=== PATIENT | male | born 1970 | race Hispanic/Latino ===

== ENCOUNTER 2016-11-02 22:52 | Inpatient (IN) | payer OTHER ==
[~2016-11-02] VITALS: Ht 177.8 cm; Wt 89.8 kg
[~2016-11-02 22:52] MED LIST: AMOXIL500 MG PO; AUGMENTIN 875875 MG PO; BACTRIM DS 8001 TAB PO; BENADRYL 50 MG50 MG PO; BENADRYL ALLERG25 MG PO; CIPRO 500MG TA500 MG PO; CIPRO500 M1 PO; COZAAR 50MG TAB50 MG PO; CYCLOBENZAPRINE10 M1 PO; CYCLOBENZAPRINE10 M2 PO; DILAUDID2 MG PO; DOXYCYCLINE HY100 M2 PO; GABAPENTIN300 MG PO; IBU-6600 MG PO; IBUPROFEN800 M1 PO; K-DUR 20MEQ TA20 MEQ PO; KETOROLAC TROME10 M1 PO; LANTUS SOLOS100 U/ML SC; LOSARTAN POTAS100 MG PO; LOSARTAN POTASS25 MG PO; MOTRIN 400 MG400 MG PO; NAPROSYN 500 M500 MG PO; NEURONTIN300 MG PO; NITROFURANTOIN100 MG PO; NORCO 325 MG-51 TAB PO; NORFLEX100 MG PO; NOVOLOG 10300 UNITS/; NOVOLOG100 U/ML SC; OXYCODONE HCL15 MG PO; OXYCODONE HCL30 MG PO; OXYCODONE5 MG PO; OXYCONTIN40 MG PO; PANTOPRAZOLE SO40 M1 PO; PEPCID20 MG PO; PERCOCET 325 MG1 TA2 PO; PERCOCET 325 MG1 TAB PO; PERCOCET 5-3251 EACH PO; PREDNICOT20 MG PO; PREDNISONE 20MG20 MG PO; ROXICODONE30 MG PO; SANTYL250 U/GM TOP; SILVADENE CREAM50 GM TOP; TRADJENTA5 M1 PO; TRADJENTA5 MG PO; TRAMADOL HCL50 M1 PO; VALIUM5 M1 PO; VISTARIL50 MG PO; ZOFRAN ODT4 MG PO
--- NOTE | 2016-11-02 23:00 | NUR ---
PRESENTS TO ED FOR EVALUATION OF SWOLLEN AND REDDENED RIGHT LOWER LEG. HE ALSO COMPLAINTS OF LOWER BACK PAIN, SUFFERED A FALL FROM HIS W/C APPROXIMATELY ONE MONTH AGO.
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
--- NOTE | 2016-11-02 23:04 | NUR ---
APPRECIATE TRIAGE NOTE. PT TO ROOM 1. KAMLESH WESTON TO BEDSIDE FOR EVAL.
--- NOTE | 2016-11-02 23:17 | NUR ---
PORTABLE XRAY AT BEDSIDE.
--- NOTE | 2016-11-02 23:42 | RADIOLOGY REPORT ---
EXAMINATION: XR TOE, RIGHT CLINICAL INFORMATION: Wounds distal first toe. Redness. Diabetic. COMPARISON: None. TECHNIQUE: 2 views FINDINGS: There is no air in the soft tissues of the forefoot. There is bone destruction of the distal phalanx of the great toe with destruction of the tuft and distal phalanges shaft. Findings consistent with osteomyelitis of the great toe distal phalanx. There is joint narrowing of the IP joint of the great toe. IMPRESSION: Bone destruction consistent with osteomyelitis of the distal tuft of distal phalanx of great toe.
--- NOTE | 2016-11-02 23:43 | RADIOLOGY REPORT ---
EXAMINATION: XR CALCANEUS, RIGHT CLINICAL INFORMATION: Wounds to the heel COMPARISON: None TECHNIQUE: Lateral and axial views of the right calcaneus were obtained. FINDINGS: No bone destruction. No evidence for osteomyelitis of the calcaneus. Small coarse calcification posterior to the calcaneus and soft tissues is chronic. IMPRESSION: No evidence for osteomyelitis of the calcaneus.
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
--- NOTE | 2016-11-03 00:45 | NUR ---
HOUSE STAFF AT BEDSIDE
--- NOTE | 2016-11-03 00:46 | NUR ---
PT C/O 05/21 PAIN. PT MEDICATED WITH HYDROMORPHONE PER ORDER
[2016-11-03] MEDS ORDERED: ESCITALOPRAM OX10 MG PO (01:01)
[2016-11-03] MEDS ORDERED: METOPROLOL TAR100 M1 PO (01:02)
--- NOTE | 2016-11-03 01:14 | NUR ---
PER MD, NO ULCER NOTED TO PATIENT'S BACKSIDE, NOTED W/ EXERTNAL HEMORRHOID APPROX 2 INCHES.
[2016-11-03] MEDS ORDERED: LANTUS SOL100 UNIT/1 SC ×2 (01:16→01:18)
[2016-11-03 02:00] LABS: ABSOLUTE BASOPHIL COUNT 0 /CUMM (0.0-0.2); ABSOLUTE EOSINOPHIL COUNT 0.2 /CUMM (0.0-0.7); ABSOLUTE GRANULOCYTE CT 7.4 /CUMM (1.4-6.5); ABSOLUTE LYMPH COUNT 1.3 /CUMM (1.2-3.4); ABSOLUTE MONOCYTE COUNT 0.6 /CUMM (0.10-0.60); BASOPHIL % 0.3 % (0.0-2.0); EOSINOPHIL % 1.8 % (0-5); GRANULOCYTE % 78.4 % (42.2-75.2); HEMATOCRIT 38.8 % (42-52); MEAN CORPUSCULAR HGB 28.7 PG (27.0-31.0); MEAN CORPUSCULAR HGB CONC 33.2 G/DL (33.0-37.0); MEAN CORPUSCULAR VOLUME 86.4 FL (80.0-94.0); PLATELET COUNT 194 /CUMM (130-400); RBC DISTRIBUTION WIDTH 14.6 % (11.5-14.5); RED BLOOD CELL CT 4.49 /CUMM (4.70-6.10); WHITE BLOOD CELL COUNT 9.4 /CUMM (4.8-10.8)
--- NOTE | 2016-11-03 02:07 | NUR ---
BLOODWORK AND 1ST SET BLOOD CULTURES DRAWN, SPECIMENS SENT OFF TO THE LAB.
--- NOTE | 2016-11-03 02:22 | NUR ---
EKG DONE AND SHOWN TO DR. GEORGE.
--- NOTE | 2016-11-03 02:24 | NUR ---
PT REPORTS PAIN DECREASING. PT APPEARS COMFORTBALE.
--- NOTE | 2016-11-03 02:40 | NUR ---
2ND SET OF BLOOD CULTURES DRAWN AND SENT OFF TO THE LAB.
--- NOTE | 2016-11-03 02:50 | NUR ---
PT C/O 05/21 PAIN. PT MEDICATED WITH 2MG MORPHINE PER ORDER
--- NOTE | 2016-11-03 03:12 | NUR ---
PT ASSIGNED TO ROOM [id number]
--- NOTE | 2016-11-03 03:23 | NUR ---
FINGERSTICK GLUCOSE LEVEL READING [id number]
--- NOTE | 2016-11-03 03:35 | NUR ---
PT REPORTS PAIN DECREAISNG AFTER BEING MEDICATED. PT APPEARS COMFORTABLE. RESP UNLABORED. NO APPARENT DISTRESS
--- NOTE | 2016-11-03 03:47 | NUR ---
PT TO CT
--- NOTE | 2016-11-03 04:18 | RADIOLOGY REPORT ---
EXAMINATION: 2 views of the right tibia/fibula CLINICAL INFORMATION: Swelling and redness and pain. COMPARISON: Tibia-fibula radiographs from 12/30/2015. FINDINGS: There is diffuse soft tissue swelling. No soft tissue gas. No radiopaque foreign bodies. No fractures. Bony articulations are normal. IMPRESSION: Diffuse soft tissue swelling. No acute osseous findings.
--- NOTE | 2016-11-03 04:23 | CT SCAN REPORT ---
EXAMINATION: CT LUMBAR SPINE WITHOUT CONTRAST CLINICAL INFORMATION: Lumbar pain. COMPARISON: Thoracic spine radiographs 04/27/2016. TECHNIQUE: Helical non-contrast CT images were obtained through the lumbar spine and 1.25 and 2.5 mm axial reconstructions were reviewed along with sagittal and coronal MPRs. FINDINGS: There are 5 nonrib-bearing lumbar-type vertebral bodies. Assessment of lumbar alignment is limited secondary to pelvic tilt. Vertebral body heights are maintained. There are large partially bridging anterior endplate osteophytes at the L3-S1 levels. No acute fractures and no acute subluxations. Vertebral body heights overall maintained. Disc volumes are preserved. No osteolytic and no osteoblastic lesions. Nonspecific enlarged retroperitoneal lymph nodes. Partially imaged large amount of intracolonic stool. Assessment for focal disc herniations is limited on CT with no definite high-grade central canal nor foraminal stenosis appreciated. IMPRESSION: - No acute osseous abnormalities. - Large partially bridging endplate osteophytes spanning the L3-S1 levels. - Nonspecific enlarged retroperitoneal lymph nodes.
[2016-11-03 04:27] VITALS: BP 162/70
--- NOTE | 2016-11-03 04:55 | Admission Certification ---
Admission Certification Certification Statement - As attending physician, I certify that at the time of - admission, based on clinical presentation, severity of - symptoms, need for further diagnostic testing and - therapeutic interventions, and risk of adverse outcomes - without in-hospital treatment, in my clinical assessment, - this patient requires an acute hospital stay for a minimum - of two nights or longer. I have also considered psychsocial - factors such as support system, advanced age, financial - issues, cognitive issues, and failed out-patient treatments, - past re-admission history, safety of patient, and lack of - compliance as applicable. Specific rationale supporting this admission is: Osteomyelitis of right great toe with right lower extremity cellulitis
--- NOTE | 2016-11-03 05:23 | NUR ---
PT ADMITTED TO FLOOR VIA STRETCHER FROM ER. ORIENTED TO ROOM, CALL HERNANDEZ, AND STAFF. ALERT AND OREINTED X 3, RA. CP FOR MRSA. SPT. MULTIPLE WOUNDS TO BLE. SEE WOUND MAN ASSESSMENT. NO C/O PAIN.
[2016-11-03 06:55] VITALS: BP 162/70
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
[2016-11-03 13:50] VITALS: BP 138/90
--- NOTE | 2016-11-03 15:33 | PN- Att Addend ---
Attending Addendum Attending Brief Note Patient seen and examined. Sitting comfortably in his wheelchair in acute distress. Denies nausea vomiting. Denies leg pain. Complains of bilateral flank pain is worse since his fall. Vital Signs Date Time Temp Pulse Resp B/P Pulse O2 O2 Flow FiO2 Ox Delivery Rate 11/03 1350 98.4 76 20 138/90 98 Room Air 11/03 1016 172/102 11/03 1016 172/102 11/03 0655 97.8 87 20 162/70 95 Room Air 11/03 0427 97.8 87 20 162/70 95 Room Air 11/03 0335 97.6 88 18 168/88 98 11/03 0100 98.3 96 18 159/89 96 11/02 2300 98.4 104 18 173/107 99 Room Air Gen. appearance: Well-developed, not in acute distress Heart: S1-S2 regular Lungs: Clear bilaterally Abdomen: Soft, nontender with normal bowel sounds, bilateral flank tenderness Extremities: Bilateral lower extremity edema. Erythema right lower extremity extending from the ankle to the upper one third of the leg. Right toe is edematous with an ulcer on the plantar surface with mild discharge. Tender to touch. Left small to has a ulceration. There is a tight dressing over right ankle ulceration. Distal pulses are weakly palpable. Recommendations: -Patient is scheduled to go to water with Carlos Deluna DPM tomorrow. Keep nothing by mouth past midnight. -Hold off antibiotics pending culture results. -Continue insulin regimen per recommendations of endocrinology service. -Recommend right lower extremity arterial studies and vascular surgery consultation due to his high risk for vasculopathy. -Obtain CT abdomen for further evaluation of his back pain. Pain appears to be musculoskeletal however imaging in the past did reveal abdominal adenopathy. Continue current pain regimen. Patient has been encouraged to take the prescribed muscle relaxants.
--- NOTE | 2016-11-03 15:40 | CT SCAN REPORT ---
EXAMINATION: CT ABDOMEN AND PELVIS WITH CONTRAST CLINICAL INFORMATION: Fever, abnormal urinary analysis and retroperitoneal lymph nodes. Evaluate for pyelonephritis. COMPARISON: Prior studies including a recent lumbar spine CT dated 11/03/[address] abdomen and pelvis dated 12/01/2013. TECHNIQUE: Multidetector volumetric imaging was performed of the abdomen and pelvis before and after the IV administration of 95mL of Optiray 320 intravenous contrast. Sagittal and coronal reformatted images were obtained on the technologist's workstation. DLP: 572.09 mGy-cm FINDINGS: LUNG BASES: Atelectasis or scarring is present at the lung base along with a calcified granuloma. LIVER, GALLBLADDER, AND BILIARY TREE: The liver is normal in size and shape. There is fatty infiltration of the liver. This is noted on the noncontrast recent lumbar spine CT. No focal hepatic lesion or biliary ductal dilatation is present. The gallbladder is contracted with no evidence of radiopaque gallstones, gallbladder wall thickening, or obvious pericholecystic inflammatory changes. PANCREAS: Unremarkable. SPLEEN: Unremarkable. ADRENAL GLANDS: Unremarkable. KIDNEYS AND URETERS: The kidneys are normal in size, shape, and attenuation. No hydronephrosis, hydroureter, or calculi are seen. No perinephric stranding. No solid masses are seen. There is a 2.2 cm left renal cyst present and a tiny millimeter-sized right cortical cyst present. BLADDER: Unremarkable. GASTROINTESTINAL TRACT: The small and large bowel is unremarkable. The appendix is unremarkable. ABDOMINAL WALL: No significant hernia is appreciated. LYMPH NODES: There is 1 enlarged lymph node in the retrocaval region that measures 2.64 x 2.43 x 1.40 cm. There is another enlarged right iliac chain lymph node present measuring 3.34 x 1.71 x 3.62 cm. Some smaller left and right iliac chain lymph nodes are seen. Enlarged right groin lymph nodes are present, the largest of which measures 2.93 x 2.17 x 4.16 cm. The retroperitoneal nodes are slightly larger than they were on the 12/01/2013 study. The groin nodes may have been slightly larger previously. VASCULAR: Unremarkable. PELVIC VISCERA: A suprapubic cystostomy tube is present. The bladder is contracted and cannot really be evaluated. OSSEOUS STRUCTURES: Degenerative changes are present in the spine with metallic structures present in the spine at T11. There is absence of the femoral heads present with destruction and ectopic bone formation with associated dysplasia of the acetabulum. Similar changes have been present in the past dating back into at least 2013. IMPRESSION: 1. Retroperitoneal and inguinal lymphadenopathy as described above. There has probably been no significant change since 2013 although there are slight differences. 2. Previously demonstrated destructive change is present in both hips. 3. No evidence of pyelonephritis. 4. Suprapubic cystostomy tube present.
[2016-11-03 22:26] VITALS: BP 164/102
--- NOTE | 2016-11-03 22:56 | NUR ---
PER DR PALMER, START D5 1/2NS AT 0000 WHEN NPO STARTS.
[2016-11-04 06:36] VITALS: BP 136/80
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
--- NOTE | 2016-11-04 07:44 | ULTRASOUND REPORT ---
EXAMINATION: NONINVASIVE ASSESSMENT OF THE ARTERIES OF RIGHT LOWER EXTREMITIES INTERPRETING VASCULAR \T\ INTERVENTIONAL RADIOLOGIST: Deniz Laurent MD CLINICAL INFORMATION: Lesion with chronic leg osteomyelitis TECHNIQUE: Right lower extremity duplex ultrasound was performed with velocity measurements and waveform analysis in the common femoral arteries, profunda femoris arteries, proximal mid and distal superficial femoral arteries, popliteal arteries and tibial vessels. This study was performed only at rest. COMPARISON: CT 11/03/2016 FINDINGS: velocities in cm/sec and phasicity as well as the presence of plaque are reported below RIGHT LEG: common femoral: 169, triphasic profunda femoris: 72.6, biphasic proximal SFA: 161, monophasic mid SFA: 186, monophasic distal SFA: 159, monophasic popliteal: 224, monophasic Posterior tibial: 39.3, monophasic Anterior tibial: 125, monophasic Dorsalis pedis: Nondetectable Incidental note is made of a large right groin nodes with largest of which is 2.7 x 1.7 x 4.3 cm. IMPRESSION: There is no evidence of inflow disease. There is some acceleration in the popliteal artery which could indicate some degree of stenosis. Velocities in the posterior tibial artery are decreased indicating some disease at this level.
--- NOTE | 2016-11-04 07:51 | PN- Student ---
Subjective Subjective: Vital Signs Date Time Temp Pulse Resp B/P Pulse O2 O2 Flow FiO2 Ox Delivery Rate 11/04 0636 98.3 75 20 136/80 96 Room Air 11/03 2226 98.1 83 20 164/102 97 Room Air 11/03 2149 155/80 11/03 1350 98.4 76 20 138/90 98 Room Air 11/03 1016 172/102 11/03 1016 172/102 Intake & Output 11/04 0800 11/04 0000 11/03 1600 Intake Total 650 600 Output Total 661 387 8213 Balance -650 -100 -600 Intake, Oral 650 600 Number 1 Bowel Movements Output, Urine [phone]
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
--- NOTE | 2016-11-04 13:41 | Operative Report ---
Operative/Inv Procedure Report Surgery Date: 11/04/16 Name of Procedure: 1 open incision and drainage deep to the deep fascia with exposure of the flexor and extensor tendon and tendon sheath multiple sites right foot 2 closure necrotic wound right foot 3 distal hallux amputation right foot 4 excisional debridement Pre-Operative Diagnosis: 1 open necrotic wound right foot 2 osteomyelitis right foot Post-Operative Diagnosis: The same Estimated Blood Loss: less than 50ml Surgeon/Plant Sprayer: BREONNA SMART DPM Anesthesia: moderate sedation, block Operative/Procedure Note Note: After obtaining informed consent the patient was brought to the operating room and placed on the operating table in the supine position. The patient was then securely fastened to the operating table utilizing safety belt. After administration of IV sedation, 10 mL of 0.5% Marcaine plain was infiltrated about the patient's right ankle. Right foot and ankle and screw prepped and draped in usual aseptic manner. Digitorectal right foot were large necrotic was identified and distal hallux. A 15 blade visualized sharply revised skin margins. Dissection was then carried down deep to the fashion with exposure of the extensor and flexor tendon tension multiple sites right foot. All necrotic nonviable infected tissue sharply evacuated from the wound bed. He fishmouth- type incision encompassing the distal phalanx level the interphalangeal joint was then marked out a skin marker. Full-thickness flaps were developed dorsally and plantarly. The digit was disarticulated and specimen sent for microbiologic and pathologic inspection. Nipple was then irrigated with 3 L normal sterile saline fissure 50,000 units of bacitracin. Following this foot was redraped and the surgeon's top of gestation clean gloves. Any bleeding vessels identified were cauterized a lace encountered. The dorsal plantar flaps were then mobilized and advanced was central aspect of the wound deep side flap was held in place with 3-0 Vicryl and the skin edges reapproximated 3-0 nylon. Incision was dressed with Xeroform 4 x 4's Kerlix and an Cosme wrap. The patient was noted tolerate both procedure and anesthesia well and the patient was transported from the operating room to recovery by sent stable best assess intact to both the dorsal and plantar flaps.
[2016-11-04 22:21] VITALS: BP 162/86
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
[2016-11-05 06:44] VITALS: BP 158/86
[2016-11-05 07:54] LABS: ABSOLUTE BASOPHIL COUNT 0 /CUMM (0.0-0.2); ABSOLUTE EOSINOPHIL COUNT 0.2 /CUMM (0.0-0.7); ABSOLUTE GRANULOCYTE CT 3.3 /CUMM (1.4-6.5); ABSOLUTE LYMPH COUNT 1.8 /CUMM (1.2-3.4); ABSOLUTE MONOCYTE COUNT 0.6 /CUMM (0.10-0.60); BASOPHIL % 0.4 % (0.0-2.0); EOSINOPHIL % 2.9 % (0-5); GRANULOCYTE % 56.6 % (42.2-75.2); HEMATOCRIT 36.5 % (42-52); MEAN CORPUSCULAR HGB 28.8 PG (27.0-31.0); MEAN CORPUSCULAR HGB CONC 33.5 G/DL (33.0-37.0); MEAN PLATELET VOLUME 9.1 FL (7.4-10.4); PLATELET COUNT 204 /CUMM (130-400); RBC DISTRIBUTION WIDTH 14.5 % (11.5-14.5); RED BLOOD CELL CT 4.25 /CUMM (4.70-6.10); WHITE BLOOD CELL COUNT 5.9 /CUMM (4.8-10.8)
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
[2016-11-05] MEDS ORDERED: LANTUS SOL100 UNIT/1 SC (10:39)
[2016-11-05] MEDS ORDERED: NOVOLOG100 UNIT/2 SC (10:39)
[2016-11-05] MEDS ORDERED: OXYCODONE HCL5 M1 PO (10:39)
--- NOTE | 2016-11-05 10:47 | Patient Discharge Instructions ---
Discharge Instructions General Discharge Information You were seen/treated for: Osteomyelitis Cellulitis Special Instructions: Please follow up with your PCP within 1 week of discharge. Please follow up with Dr. Deluna within 1-2 weeks of discharge. This is the phone number to schedule an appt. Please take all medications as directed. Please follow up with Dr. Bonilla within 1-2 weeks for management of diabtes mellitus. ( call this number to schedule an appt). Please return or visit your PCP if you notive fever, chills, or other signs of infection. Please attend your chronic pain appointment. Please follow up with vascular surgery. Schedule an appt with the number below. . You may take over the counter lozenges for throat pain. Diet Recommended Diet: Diabetic Activity Activity Self Limited: Yes Acute Coronary Syndrome Inclusion Criteria At DC or during hospital stay patient has or had the following: ACS DIAGNOSIS No Discharge Core Measures Meds if any: Prescribed or Continued at Discharge Meds if any: NOT Prescribed or Continued at Discharge Congestive Heart Failure Inclusion Criteria At DC or during hospital stay patient has or had the following: CHF DIAGNOSIS No Discharge Core Measures Meds if any: Prescribed or Continued at Discharge Meds if any: NOT Prescribed or Continued at Discharge Cerebrovascular accident Inclusion Criteria At DC or during hospital stay patient has or had the following: CVA/TIA Diagnosis No Discharge Core Measures Meds if any: Prescribed or Continued at Discharge Meds if any: NOT Prescribed or Continued at Discharge Venous thromboembolism Inclusion Criteria VTE Diagnosis No VTE Type NONE VTE Confirmed by (Test) NONE Discharge Core Measures - Per Current guidelines, there needs to be overlap - treatment for the first 5 days of Warfarin therapy. - If discharged on Warfarin prior to 5 days of - overlap therapy, the patient will need to be - assessed for post discharge needs including - *Post discharge parental anticoagulation - *Warfarin and/or parental anticoagulation education - *Follow up date to check INR post discharge At least 5 days overlap therapy as Inpatient No Meds if any: Prescribed or Continued at Discharge Note: Overlap Therapy is Warfarin and Anticoagulant Meds if any: NOT Prescribed or Continued at Discharge
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
[2016-11-05 15:23] VITALS: BP 120/70
[2016-11-05] MEDS ORDERED: OXYCODONE HCL10 M2 PO (16:31)
[2016-11-05] MEDS ORDERED: MIRALAX119 GM PO (16:31)
[2016-11-05 22:57] VITALS: BP 160/82
[2016-11-06 06:46] VITALS: BP 140/70
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
[2016-11-06 07:46] LABS: ABSOLUTE BASOPHIL COUNT 0 /CUMM (0.0-0.2); ABSOLUTE EOSINOPHIL COUNT 0.2 /CUMM (0.0-0.7); ABSOLUTE GRANULOCYTE CT 3.3 /CUMM (1.4-6.5); ABSOLUTE LYMPH COUNT 1.9 /CUMM (1.2-3.4); ABSOLUTE MONOCYTE COUNT 0.6 /CUMM (0.10-0.60); BASOPHIL % 0.3 % (0.0-2.0); EOSINOPHIL % 2.9 % (0-5); GRANULOCYTE % 55.1 % (42.2-75.2); HEMATOCRIT 35.6 % (42-52); MEAN CORPUSCULAR HGB 28.9 PG (27.0-31.0); MEAN CORPUSCULAR HGB CONC 33.7 G/DL (33.0-37.0); MEAN CORPUSCULAR VOLUME 85.8 FL (80.0-94.0); MEAN PLATELET VOLUME 8.6 FL (7.4-10.4); PLATELET COUNT 212 /CUMM (130-400); RBC DISTRIBUTION WIDTH 14.2 % (11.5-14.5); RED BLOOD CELL CT 4.15 /CUMM (4.70-6.10)
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
[2016-11-06] MEDS ORDERED: LEVEMIR100 UNIT/1 SC (09:05)
[2016-11-06] MEDS ORDERED: NOVOLOG100 UNIT/2 SC (09:06)
[2016-11-06 10:14] VITALS: BP 150/86
== END 2016-11-06 12:30 | disposition home health service (06) | DRG 305 ==
LOC: ENRESERVDT → ENRESERVTM → ERH 22:52 → 2NA 11-03 01:25 → ENPENDDIS 11-03 01:25 → ERHI 11-03 01:25 → ERH 11-03 03:42 → ERHI 11-03 03:42 → 2NA 11-03 04:12
PROVIDERS: Physician Assistant Medical; Student in an Organized Health Care Education/Training Program; ADMIT Internal Medicine
PROC: 0J9Q00Z Drainage of Right Foot Subcutaneous Tissue and Fascia with Drainage Device, Open Approach (ICD-10-PCS; principal; 2016-11-04)
PROC: 0YQ Anatomical Regions, Lower Extremities, Repair (ICD-10-PCS; 2016-11-04)
PROC: 0Y6M0Z9 Detachment at Right Foot, Partial 1st Ray, Open Approach (ICD-10-PCS; 2016-11-04)
PROC: 0JBQ0ZZ Excision of Right Foot Subcutaneous Tissue and Fascia, Open Approach (ICD-10-PCS; 2016-11-04)
DX: E11.69 Type 2 diabetes mellitus with other specified complication (principal); M86.171 Other acute osteomyelitis, right ankle and foot; Z79.4 Long term (current) use of insulin; L03.115 Cellulitis of right lower limb; E11.621 Type 2 diabetes mellitus with foot ulcer; L97.419 Non-pressure chronic ulcer of right heel and midfoot with unspecified severity; L97.519 Non-pressure chronic ulcer of other part of right foot with unspecified severity; E11.65 Type 2 diabetes mellitus with hyperglycemia; G82.20 Paraplegia, unspecified; N31.9 Neuromuscular dysfunction of bladder, unspecified; N30.80 Other cystitis without hematuria; B95.62 Methicillin resistant Staphylococcus aureus infection as the cause of diseases classified elsewhere; T83.518A Infection and inflammatory reaction due to other urinary catheter, initial encounter; I10 Essential (primary) hypertension
CPT/HCPCS: 2NAP; 87070; 87075; 87184; 36415; 73590-RT; 73650-RT; 73660-RT; 74177; 81001; 82436; 87040; 87086; 87088; 88305; 93005; 93010; 96374; J1644; J1815; J2001; J2405; J3490; J7042; Q2036

== ENCOUNTER 2016-12-15 13:26 | Emergency (ER) | payer OTHER ==
[~2016-12-15 13:26] MED LIST changes: +ESCITALOPRAM OX10 MG PO; +LANTUS SOL100 UNIT/1 SC; +LEVEMIR100 UNIT/1 SC; +METOPROLOL TAR100 M1 PO; +MIRALAX119 GM PO; +NOVOLOG100 UNIT/2 SC; +OXYCODONE HCL10 M2 PO; +OXYCODONE HCL5 M1 PO
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
--- NOTE | 2016-12-15 14:27 | RADIOLOGY REPORT ---
EXAMINATION: XR FOOT, LEFT CLINICAL INFORMATION: Dogbite to the left foot. COMPARISON: Single AP view of the left foot 07/04/2009. TECHNIQUE: AP, lateral, and oblique views of the left foot. FINDINGS: Multiple views of the left foot demonstrate demineralization of the visualized bones. No acute fracture or dislocation of the left foot is identified. There is no appreciable cortical destruction or significant periosteal reaction. No radiopaque foreign bodies are identified. There is minimal soft tissue swelling along the dorsum of the left foot. IMPRESSION: No acute osseous or articular abnormality of the left foot. Minimal soft tissue swelling along the dorsal aspect of the left foot. No visible radiopaque foreign bodies.
[2016-12-15] MEDS ORDERED: AUGMENTIN 875-1 EACH PO (14:33)
[2016-12-15] MEDS ORDERED: PERCOCET 5-3251 EACH PO (14:33)
[2016-12-15 16:47] VITALS: BP 156/79
== END 2016-12-15 16:49 ==
LOC: ERH 13:26
DX: S91.352A Open bite, left foot, initial encounter (principal); W54.0XXA Bitten by dog, initial encounter
CPT/HCPCS: 73630-LT; 90376; 90471; 90714; J3490

== ENCOUNTER 2016-12-18 16:56 | Emergency (ER) | payer OTHER ==
[~2016-12-18 16:56] MED LIST changes: +AUGMENTIN 875-1 EACH PO
[2016-12-18 17:38] VITALS: BP 172/90
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
== END 2016-12-18 18:33 ==
LOC: ERH 16:56
DX: Z23 Encounter for immunization (principal)
CPT/HCPCS: 90471; 99281

== ENCOUNTER 2016-12-25 17:48 | Emergency (ER) | payer OTHER ==
[2016-12-25 17:59] VITALS: BP 191/98
--- NOTE | 2016-12-25 21:06 | RADIOLOGY REPORT ---
EXAMINATION: XR CHEST CLINICAL INFORMATION: Rule out pneumonia. Pain. COMPARISON: Chest x-ray dated 12/30/2015. TECHNIQUE: 2 views of the chest were obtained. FINDINGS: No airspace consolidation is visible. The cardiomediastinal silhouette is normal. No pleural effusions are seen. High density material is again noted at the T11 level in the vertebral column. No acute osseous abnormality is seen. IMPRESSION: Clear lungs.
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
[2016-12-25] MEDS ORDERED: TRAMADOL HCL50 M1 PO (21:29)
[2016-12-25] MEDS ORDERED: TYLENOL WITH C1 EACH PO (21:39)
== END 2016-12-25 21:44 ==
LOC: ERH 17:48
DX: S20.211A Contusion of right front wall of thorax, initial encounter (principal); Z23 Encounter for immunization; W19.XXXA Unspecified fall, initial encounter; Y93.9 Activity, unspecified; Y92.9 Unspecified place or not applicable
CPT/HCPCS: 90471

== ENCOUNTER 2017-01-05 12:31 | Emergency (ER) | payer OTHER ==
[~2017-01-05] VITALS: Ht 182.9 cm; Wt 86.2 kg
[~2017-01-05 12:31] MED LIST changes: +TYLENOL WITH C1 EACH PO
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
[2017-01-05] MEDS ORDERED: LOSARTAN POTAS100 M1 PO (15:43)
[2017-01-05] MEDS ORDERED: LANTUS SOL100 UNIT/1 SC (15:45)
[2017-01-05] MEDS ORDERED: TRAMADOL HCL50 M1 (15:47)
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
[2017-01-05] MEDS ORDERED: KETOROLAC TROME10 M1 PO (16:03)
[2017-01-05 16:18] VITALS: BP 170/85
== END 2017-01-05 16:20 ==
LOC: ERH 12:31
DX: R07.81 Pleurodynia (principal)
CPT/HCPCS: 96372; J1885

== ENCOUNTER 2017-01-31 19:54 | Emergency (ER) | payer OTHER ==
[~2017-01-31] VITALS: Ht 152.4 cm; Wt 81.6 kg
[~2017-01-31 19:54] MED LIST changes: +LOSARTAN POTAS100 M1 PO; +TRAMADOL HCL50 M1
[2017-01-31] MEDS ORDERED: FLUTICASONE PRO16 GM NASB (20:23)
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
[2017-01-31 22:20] VITALS: BP 169/91
--- NOTE | 2017-01-31 22:47 | CT SCAN REPORT ---
EXAMINATION: CT INTERNAL AUDITORY CANALS WITHOUT CONTRAST CLINICAL INFORMATION: Otitis externa, otitis media. Right mastoid and tenderness. Mastoiditis. COMPARISON: None TECHNIQUE: Contiguous thin section axial imaging was performed without intravenous administration of contrast. Targeted coronal and axial reformatted images were obtained and reviewed as well. DLP: 267 mGy-cm FINDINGS: Visualized posterior fossa is normal. No mass effect or midline shift. The ventricles are normal in size and symmetric. Visualized globes and orbits are normal. There is extensive ethmoid air cell mucosal thickening with partial opacification of the ethmoid air cells. The visualized frontal sinuses are fully opacified. Mild sphenoid sinus mucosal thickening. Mild bilateral maxillary sinus mucosal thickening. Right maxillary sinus medial wall is absent, query prior sinus surgery. Left: Normal. The external auditory canal, mastoid air cells, and middle ear, including the ossicles and mineralization are normal. The tegmen tympani and scutum are intact. The inner ear structures including the cochlea, vestibule, semicircular canals, and internal auditory canal are normal. The vestibular aqueduct is normal in caliber. Right: There is near complete opacification of the middle air cavity with fluid. The ossicles remain intact; no evidence of ossicular erosion or disruption. The tympanic membrane is thickened with adjacent fluid. There is circumferential, presumably inflammatory soft tissue surrounding the external auditory canal with a small amount of residual aerated lumen, and keeping with history of otitis externa. There is asymmetric fat stranding within the soft tissues surrounding the right external auditory meatus. There is partial opacification of the mastoid air cells with fluid. However, there is no evidence of osseous erosion or destruction and the internal trabecular septations of the right mastoid air cells remain intact. No defect or erosion of the sigmoid plate. Lack of IV contrast limits evaluation for intracranial or extraosseous abscess, but no fluid collection is seen. The petrous apex is not pneumatized. Normal appearance of the cochlea and semicircular canals. IMPRESSION: Almeida sinus disease. Normal left mastoid air cells, middle ear, and external auditory canal. There is partial opacification of the mastoid air cells but there is no evidence of osseous erosion or destruction to suggest coalescent mastoiditis. Lack of IV contrast limits evaluation for abscess but no fluid collection is seen. There is near complete opacification of the middle ear cavity with fluid, including fluid in the epitympanum, but the ossicles are intact and there is no evidence of ossicular erosion. There is thickening of the tympanic membrane and circumferential soft tissue within the external auditory canal. These findings are consistent with the history of otitis media and otitis externa. This report is preliminary. This exam will also receive a finalized interpretation by a subspecialty neuroradiologist.
[2017-01-31] MEDS ORDERED: AUGMENTIN 875-1 EACH PO (22:52)
[2017-01-31] MEDS ORDERED: CIPRODEX OTIC7.5 ML OT (22:52)
[2017-01-31] MEDS ORDERED: PERCOCET 10-321 EACH PO (22:52)
[2017-01-31] MEDS ORDERED: IBUPROFEN800 M1 PO (22:52)
== END 2017-01-31 23:00 ==
LOC: ERH 19:54
DX: H60.91 Unspecified otitis externa, right ear (principal); E10.65 Type 1 diabetes mellitus with hyperglycemia; H66.91 Otitis media, unspecified, right ear
CPT/HCPCS: 87040; J3370; J3490

== ENCOUNTER 2017-03-28 02:31 | Emergency (ER) | payer OTHER ==
[~2017-03-28 02:31] MED LIST changes: +CIPRODEX OTIC7.5 ML OT; +FLUTICASONE PRO16 GM NASB; +PERCOCET 10-321 EACH PO
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
[2017-03-28] MEDS ORDERED: IBUPROFEN800 M1 PO (03:04)
[2017-03-28 03:11] LABS: ABSOLUTE BASOPHIL COUNT 0 /CUMM (0.0-0.2); ABSOLUTE EOSINOPHIL COUNT 0.2 /CUMM (0.0-0.7); ABSOLUTE GRANULOCYTE CT 7.6 /CUMM (1.4-6.5); ABSOLUTE LYMPH COUNT 2.3 /CUMM (1.2-3.4); ABSOLUTE MONOCYTE COUNT 0.8 /CUMM (0.10-0.60); BASOPHIL % 0.2 % (0.0-2.0); EOSINOPHIL % 1.5 % (0-5); GRANULOCYTE % 69.3 % (42.2-75.2); HEMATOCRIT 40.3 % (42-52); MEAN CORPUSCULAR HGB CONC 32.6 G/DL (33.0-37.0); MEAN CORPUSCULAR VOLUME 85.8 FL (80.0-94.0); MEAN PLATELET VOLUME 8.7 FL (7.4-10.4); PLATELET COUNT 296 /CUMM (130-400); RBC DISTRIBUTION WIDTH 14.7 % (11.5-14.5); WHITE BLOOD CELL COUNT 10.9 /CUMM (4.8-10.8)
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
[2017-03-28 04:56] VITALS: BP 136/74
== END 2017-03-28 05:25 ==
LOC: ERH 02:31
PROVIDERS: Pediatrics
DX: M25.512 Pain in left shoulder (principal)
CPT/HCPCS: 93005; 93010; 96374; 96375; J0131

== ENCOUNTER 2017-04-22 19:36 | Emergency (ER) | payer OTHER ==
[~2017-04-22 19:36] MED LIST changes: +BACTRIM DS TAB1 EACH PO
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
--- NOTE | 2017-04-22 21:43 | RADIOLOGY REPORT ---
EXAMINATION: CHEST 1 VIEW CLINICAL INFORMATION: Syncope. COMPARISON: 04/03/2017. TECHNIQUE: An AP view of the chest is provided. FINDINGS: The cardiac silhouette is not enlarged. The mediastinal and hilar contours are unremarkable. There are neither pleural effusions nor pneumothoraces. There are no consolidations. The osseous structures are unremarkable. IMPRESSION: No evidence for acute disease.
[2017-04-22] MEDS ORDERED: ESCITALOPRAM OX20 MG PO (21:53)
[2017-04-22] MEDS ORDERED: GABAPENTIN400 M2 PO (21:54)
[2017-04-22] MEDS ORDERED: AMLODIPINE BESY10 M1 PO (21:54)
[2017-04-22] MEDS ORDERED: ZOLPIDEM TARTRA10 M1 PO (21:54)
[2017-04-22 22:38] VITALS: BP 132/68
== END 2017-04-22 22:47 ==
LOC: ERH 19:36
DX: L89.309 Pressure ulcer of unspecified buttock, unspecified stage (principal); R42 Dizziness and giddiness
CPT/HCPCS: 93005; 93010

== ENCOUNTER 2017-04-28 19:15 | Inpatient (IN) | payer OTHER ==
[~2017-04-28] VITALS: Ht 182.9 cm; Wt 81.6 kg
[~2017-04-28 19:15] MED LIST changes: +AMLODIPINE BESY10 M1 PO; +ESCITALOPRAM OX20 MG PO; +GABAPENTIN400 M2 PO; +ZOLPIDEM TARTRA10 M1 PO
--- NOTE | 2017-04-28 19:20 | NUR ---
PER PT WOUND TO BUTTOCKS, SMELLY AND DRAINAING TODAY WHEN CHANGING DRESSING.
--- NOTE | 2017-04-28 19:23 | NUR ---
PT REPORTS FLUID FILLED BLISTERS TO HEELS , PT APPEARS ILL.
--- NOTE | 2017-04-28 19:27 | NUR ---
PT APPEARS ILL, COLOR NOT USUAL FOR PT, MILDLY TACHYPNEIC.
--- NOTE | 2017-04-28 19:45 | NUR ---
PT IN ROOM 4.
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
--- NOTE | 2017-04-28 20:00 | NUR ---
PT DIFFICULT IV STICK. ATTEMPTED IV AND LAB DRAWS X1 IN LEFT AC, UNSUCCESSFUL. WARM COMPRESSED PLACED ON ARMS TO ASSIST IN VASODIALTION OF VEINS. ROSMERY WESTON IN TO SEE PT. PT WITH MULTIPLE WOUNDS TO HIPS/SACRUM AND LEFT LE . L HEEL MUSHY BUT INTACT TO TOUCH
--- NOTE | 2017-04-28 20:13 | NUR ---
PT TAKEN TO CT SCAN
--- NOTE | 2017-04-28 20:15 | NUR ---
PT TAKEN TO CT SCAN
--- NOTE | 2017-04-28 20:41 | NUR ---
RETURNED FROM CT SCAN. ATTEMPTED SECOND TIME TO START IV, DRAW LABS. UNSUCCESSFUL ATTEMPT
--- NOTE | 2017-04-28 20:47 | CT SCAN REPORT ---
EXAMINATION: CT PELVIS WITHOUT CONTRAST CLINICAL INFORMATION: Left buttock pain. Fever. COMPARISON: 11/03/2016. TECHNIQUE: Helical scanning was performed with submillimeter collimation through the pelvis. Sagittal and coronal multiplanar 2-D reconstructions were obtained. DLP: 1229 mGy-cm FINDINGS: Evaluation is quite limited due to the lack of IV contrast. There is a moderate amount of stool within the colon. There is no abdominal or pelvic free fluid. There is diffuse subcutaneous edema about the buttocks. There are no discernible drainable fluid collections. Again identified are prominent iliac chain and inguinal lymph nodes. The largest iliac chain lymph node on the right is on image [id number] measuring approximately 3.2 x 2.0 cm. The largest right inguinal lymph node on the right measures 3.8 x 1.8 cm. The largest left inguinal lymph node measures 3.5 x 2.0 cm. A suprapubic catheter is in place. There is a soft tissue focus present posterior to the rectum. This is unchanged from prior exam, but could correspond to rectal prolapse. Correlate with physical exam. Again identified is chronic destruction of both femoral heads with heterotopic bone formation. No acute bony destruction is demonstrable. IMPRESSION: Diffuse edema about the buttocks without drainable fluid collections; however, the lack of IV contrast significantly limits evaluation. Stable enlarged iliac chain and inguinal lymph nodes. Stable chronic destructive changes to both femoral heads. No acute bony destruction is demonstrable.
--- NOTE | 2017-04-28 21:04 | NUR ---
PT BLOOD SENT TO THE LAB [facility]
[2017-04-28 21:13] LABS: ABSOLUTE BASOPHIL COUNT 0 /CUMM (0.0-0.2); ABSOLUTE EOSINOPHIL COUNT 0.1 /CUMM (0.0-0.7); ABSOLUTE GRANULOCYTE CT 7.6 /CUMM (1.4-6.5); ABSOLUTE MONOCYTE COUNT 0.7 /CUMM (0.10-0.60); BASOPHIL % 0.3 % (0.0-2.0); EOSINOPHIL % 1.3 % (0-5); GRANULOCYTE % 79.9 % (42.2-75.2); HEMATOCRIT 32.3 % (42-52); MEAN CORPUSCULAR HGB 28.4 PG (27.0-31.0); MEAN CORPUSCULAR VOLUME 86.1 FL (80.0-94.0); MEAN PLATELET VOLUME 7.8 FL (7.4-10.4); PLATELET COUNT 398 /CUMM (130-400); RBC DISTRIBUTION WIDTH 15.7 % (11.5-14.5); RED BLOOD CELL CT 3.75 /CUMM (4.70-6.10); WHITE BLOOD CELL COUNT 9.5 /CUMM (4.8-10.8)
--- NOTE | 2017-04-28 21:15 | NUR ---
SECOND SET OF BLOOD CULTURES AND IV STARTED BY SALVATORE RODRÍGUEZ RN
--- NOTE | 2017-04-28 22:41 | NUR ---
SURGICAL KAMLESH CLEMENT TO SEE PT
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
--- NOTE | 2017-04-28 23:05 | NUR ---
PT GIVEN BOX DINNER TO EAT. VANCOMYCIN INFUSING
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
--- NOTE | 2017-04-29 02:07 | NUR ---
PT TO BE PLACED IN HOSPITAL BED D/T WOUNDS TO BUTTOCKS, SEEN BY HOUSESTAFF, WILL REQUEST CONSULT WITH Michael COUGHLIN IN AM. PT REPORTS SOME RELIEF FROM MORPHINE.
--- NOTE | 2017-04-29 05:38 | NUR ---
MEDICATED WITH UNASYN PER EMAR. PT SLEEPING BUT AROUSABLE TO VOICE.
--- NOTE | 2017-04-29 06:44 | Admission Certification ---
Admission Certification Certification Statement - As attending physician, I certify that at the time of - admission, based on clinical presentation, severity of - symptoms, need for further diagnostic testing and - therapeutic interventions, and risk of adverse outcomes - without in-hospital treatment, in my clinical assessment, - this patient requires an acute hospital stay for a minimum - of two nights or longer. I have also considered psychsocial - factors such as support system, advanced age, financial - issues, cognitive issues, and failed out-patient treatments, - past re-admission history, safety of patient, and lack of - compliance as applicable. Specific rationale supporting this admission is: Left buttock decubitus ulcer with cellulitis.
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
--- NOTE | 2017-04-29 08:38 | NUR ---
PT REQUESTING SOMETHING FOR PAIN, MEDICATED WITH 2 MG IV PUSH MORPHINE. VSS.
--- NOTE | 2017-04-29 09:12 | NUR ---
MEDICATED WITH PRILOSEC (SEE MAR) 22G IV EST TO RT FOREARM, GOOD BLOOD RETURN AND FLUSHES WELL.
--- NOTE | 2017-04-29 10:42 | NUR ---
PT MEDICATED PER EMAR. DR. HAILE AT BEDSIDE FOR EVAL. COZAAR AND AMLODIPINE HELD DUE TO NORMO-LOW BP.
--- NOTE | 2017-04-29 11:53 | PN- Att Addend ---
Attending Addendum Attending Brief Note Patient seen and examined in the emergency room. Plan of care discussed with the medical team and the patient. Available lab work and radiology test reports were reviewed. Patient does not report any fever. His pain is well controlled. He denies any other acute symptoms. Any chest pain nausea vomiting or abdominal pain or diarrhea. Vital Signs Date Time Temp Pulse Resp B/P B/P Pulse O2 O2 Flow FiO2 Mean Ox Delivery Rate 04/29 1042 80 114/57 04/29 1041 80 114/57 04/29 1040 80 114/57 04/29 1030 98.1 80 15 114/57 98 Room Air Room Air 04/29 0837 98.5 93 15 132/79 97 Room Air Room Air 04/29 0303 100.5 04/28 2309 88 18 118/67 97 04/28 2302 Room Air 04/28 2153 100.5 04/28 1921 100.5 90 24 158/92 95 Room Air Intake & Output 04/29 1600 04/29 0800 04/29 0000 Intake Total 120 600 Output Total 300 Balance 120 300 Intake, IV 300 Intake, Oral 120 300 Output, Urine 300 Patient 180 lb Weight Weight Reported by Patient Measurement Method Exam: General: Patient awake alert oriented without any distress CVS: S1 plus S2 without any murmur or gallops Chest: Few scattered crepitation without any wheeze. There is no respiratory distress. Abdomen: Soft nontender, bowel sound present, no guarding or rebound [employer]: Awake alert oriented without any focal neuro deficit and follows command appropriately Extremities: No edema; no clubbing or cyanosis noted Buttocks: Buttock area shows chronic scarring multiple previous surgical scars noted. Pale yellow crusted secretions noted. Perianal Perdomo tissue and open wound areas noted. Hydrocele is noted Laboratory Tests 04/28 Chemistry Sodium (137 - 145 mmol/L) 131 L Potassium (3.5 - 5.1 mmol/L) 3.6 Chloride (98 - 107 mmol/L) 92 L Carbon Dioxide (22 - 30 mmol/L) 30 Anion Gap (5 - 16) 9 BUN (9 - 20 mg/dL) 8 L Creatinine (0.7 - 1.2 mg/dL) 0.5 L Estimated GFR (>60 ml/min) > 60 BUN/Creatinine Ratio (7 - 25 %) 16.0 Glucose (65 - 99 mg/dL) 258 H Hemoglobin A1c (4.2 - 5.8 %) 10.8 H Lactic Acid (0.7 - 2.1 mmol/L) Cancelled 1.2 Calcium (8.4 - 10.2 mg/dL) 9.1 Total Bilirubin (0.2 - 1.3 mg/dL) 0.4 AST (17 - 59 U/L) 27 ALT (21 - 72 U/L) 42 Alkaline Phosphatase (< 127 U/L) 109 Total Protein (6.3 - 8.2 g/dL) 7.8 Albumin (3.5 - 5.0 g/dL) 3.3 L Globulin (1.9 - 4.2 gm/dL) 4.5 H Albumin/Globulin Ratio (1.1 - 2.2 %) 0.7 L Hematology CBC w Diff NO MAN DIFF REQ WBC (4.8 - 10.8 /CUMM) 9.5 RBC (4.70 - 6.10 /CUMM) 3.75 L Hgb (14.0 - 18.0 G/DL) 10.6 L Hct (42 - 52 %) 32.3 L MCV (80.0 - 94.0 FL) 86.1 MCH (27.0 - 31.0 PG) 28.4 RDW (11.5 - 14.5 %) 15.7 H Plt Count (130 - 400 /CUMM) 398 MPV (7.4 - 10.4 FL) 7.8 Gran % (42.2 - 75.2 %) 79.9 H Lymphocytes % (20.5 - 51.1 %) 11.0 L Monocytes % (1.7 - 9.3 %) 7.5 Eosinophils % (0 - 5 %) 1.3 Basophils % (0.0 - 2.0 %) 0.3 Absolute Granulocytes (1.4 - 6.5 /CUMM) 7.6 H Absolute Lymphocytes (1.2 - 3.4 /CUMM) 1.0 L Absolute Monocytes (0.10 - 0.60 /CUMM) 0.7 H Absolute Eosinophils (0.0 - 0.7 /CUMM) 0.1 Absolute Basophils (0.0 - 0.2 /CUMM) 0 PUBS MCHC (33.0 - 37.0 G/DL) 33.0 Microbiology Date/Time Procedure - Status Source Growth 04/29 0037 Urine Culture - COLB URINE ROUT 04/28 2115 Blood Culture - RECD BLOOD 04/28 2059 Blood Culture - RECD BLOOD CT pelvis Diffuse edema about the buttocks without drainable fluid collections; however, the lack of IV contrast significantly limits evaluation. Stable enlarged iliac chain and inguinal lymph nodes. Stable chronic destructive changes to both femoral heads. No acute bony destruction is demonstrable. Assessment * Buttock area chronic wounds and cellulitis with multiple decubitus ulcers * Paraplegia * History diabetes * Status post chronic suprapubic indwelling catheter * Mild anemia * Mild hyponatremia * Hyperglycemia with uncontrolled diabetes with HbA1c of 10.8 * Suspected malnutrition with hypoalbuminemia 3.3 Plan * Patient was seen by plastic surgery. Consult note reviewed; no plan for acute surgical intervention is noted. * Continue IV Unasyn * Await cultures * Start Lantus 30 units twice a day subcutaneous * Continues sliding scale high-dose
--- NOTE | 2017-04-29 12:46 | NUR ---
MEDICATED WITH INSULIN, LUNCH TRAY HERE NOW.
--- NOTE | 2017-04-29 15:41 | NUR ---
YAMILETH WOUND NURSE AT BEDSIDE FOR EVAL.
--- NOTE | 2017-04-29 15:53 | NUR ---
WOUND CARE: REQUESTED BY ER ASW/[facility] T[employer]ICAL [employer] CONTROLLER AND DR CASTILLO TO EVALUATE PT - PT KNOWN TO THIS EQUIP TECH FROM PREVIOUS WOUND CENTER VISITS AND MULTIPLE PAST HOSPITAL ADMISSIONS - HX REVIEWED WITH PT - PT STATED HE HAS HAD WOUNDS FOR MONTHS AND NEGLECTED MEDICAL TX DUE TO 'LAZINESS' - PT ALSO REPORTS THAT HE SLEEPS ON REGULAR MATTRESS ON HIS STOMACH, AND THEREFORE HAS DEVELOPED AREAS OF PRESSURE INJURY TO ANTHONY PATELLAR REGION - EVALUATED WITH DR CASTILLO AT BEDSIDE - CT SCAN REVIWED UNREMARKABLE - LABS REVIEWED - ELEVATED GLUCOSE, WBC WNL, LAST ESR Oct SKIN ASSESSMENT FOLLOWS: RIGHT HEEL DTI 6X5 CM DARK PURPLE BLOOD FILLED BLISTER BOGGY RIGHT ACHILLIES REGIONS 4X4 CM EVOLVING DTI WITH CRESENT SHAPED SKIN BREAKDOWN AT CENTER RIGHT 2ND AND 3RD TOES 1X1 CM AND 1X1.2 CM UNSTAGEABLE PRESSURE INJURY 100% DRY YELLOW FILL - SCANT DRNG LEFT HEEL 6X5 CM AREA OF DTI DARK PURPLE DISCOLORED HUE BOGGY LEFT ACHILLIES 1.5 X 1 CM EVOLVING DTI LEFT 2ND TOE 1.5 X 1 CM UNSTAGEABLE PRESSURE INJURY DRY DESICATED HUE RIGHT KNEE 3X3 CM UNSTAGEABLE PRESSURE INJURY PRESUMED STAGE 4 WITH PERIWOUND CREPITUS AND INDURATION - SL SOFT TISSUE SWELLING LEFT KNEE UNSTAGEABLE PRESSURE INJURY 1.5 X 2 CM WITH PURULENT DRNG BRYON PALPATED SACRAL WOUND STAGE 4 PRESSURE INJURY PREDOMINAT BLACK ESCHAR 10X18 CM DRNG LARGE AMOUNT SEROSANG DRNG WITH PERIWOUND ERYTHEMA AND CELLULITIC CHANGES - FAILED FLAP AND EVIDENCE OF INFECTION NOTED LEFT HIP STAGE 4 PRESSURE INJURY 4X2 CM FULL THCNKESS DRNG MOD AMOUNT SEROSANF DRNG - RIGHT HIP (2) PRESSURE INJURIES 2X2 CM (STAGE 3) AND 6X4 CM - LEFT ANKLE (2) UNSTAGEALBE PRESSURE INJURIES 3X2 AND 2X3 CM 50% MOIST YELLOW FILL AND PERIWOUND HYPERPIGMENTED - PT HAD REQUIRED FURTHER OSTEO WORKUP WITH DR KEEN, AND PT OPTED OUT OF CONT FOLLOW UP - ? CHRONIC OSTEO PT IMPRESSION: MULTPLE PRESSURE INJURIES PRESENT ON ADMISSION NOTED ABOVE WITH CELLULTIC CHANGES AND ? UNDERLYING OSTEO RECOMMEDNATION: PT WILL REQUIRE CLINITRON MATTRESS - SURGICAL EVALUATION FOR SURGICAL EXCISIONAL DEBRIDEMENT OF SACRAL ULCER - OSTEO WORKUP PLEASE - CONSIDER SEDRATE AND FURTHER IMAGING OF KNEE WOUNDS AND ANKLE WOUNDS - CONSIDER APPLICATION OF WOUND VAC TO SACRAL WOUND ONCE VIABLE WOUND BED CAN BE OBTAINED - IN INTERIM, CLEANSE ALL WOUNDS TO HIPS AND BUTTOCKS WITH NS FB 1/4 STRENGTH DAKINS MOIST GAUZE AND DPD TWICE DAILY AND PRN - Q 1 HOUR REPOSITIONING WIB PLEASE (PT CAN INDEPENDENTLY ROTATE, SO PLEASE REMIND PT TO REPOSITION) - CLEANSE KNEE, TOE, AND ANKLE WOUNDS WITH NS FB XEROFORM GAUZE AND DPD - PAINT ANTHONY HEELS WITH BETADINE - STRICT 100% OFFLOADING AT ALL TIMES - PLEASE CONSIDER MPB TO ANTHONY LOWER EXT - AWAIT FURTHER RECOMMENDATIONS FROM PLASTICS, DR STEWART WILL BE EVALUATING PT IN AM
--- NOTE | 2017-04-29 16:46 | NUR ---
THIS RN WENT TO GO ADMINISTER IV UNASYN, PT'S IV NOTED TO BE INFILTRATED. NIKOLE RN TO ATTEMPT IV ACCESS.
[2017-04-29 17:34] VITALS: BP 115/61
--- NOTE | 2017-04-29 19:30 | NUR ---
HERE TO EVAL PT. PER HE DOES NOT SEE PT NEEDING IMMEDIATE SURGICAL TX OF WOUNDS AT THIS TIME. HE WILL CTM PATIENT AND WILL NOTIFY OF ANY CHANGES.
--- NOTE | 2017-04-29 19:31 | NUR ---
PT RESTING COMFORTABLY AT THIS TIME SITTING IN BED ON IPAD. OFFERS RELIEF IN PAIN AT THIS TIME. WILL CTM PATIENT.
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
--- NOTE | 2017-04-29 20:35 | NUR ---
PATIENT ASSIGNED TO 217-1
--- NOTE | 2017-04-29 20:53 | NUR ---
ATTEMPT TO GIVE REPORT TO FLOOR. PER 2NB BED HAS NOT BEEN CLEANED YET AND WILL CALL.
--- NOTE | 2017-04-29 21:04 | NUR ---
REPORT GIVEN TO ASHISH WONG 2NB
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
--- NOTE | 2017-04-29 22:17 | NUR ---
PT NOTE FROM RN UMAIR CARSON BED IS RECOMMENDED FOR PT. TEXT SENT TO PLASTIC FINISHER PASTING INSPECTOR, GAL BARRETT, FOR ORDER. WILL PASS ON TO ONCOMING RN.
[2017-04-29 22:48] VITALS: BP 130/82
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
[2017-04-30 08:08] VITALS: BP 138/72
[2017-04-30 08:40] LABS: ABSOLUTE BASOPHIL COUNT 0 /CUMM (0.0-0.2); ABSOLUTE EOSINOPHIL COUNT 0.1 /CUMM (0.0-0.7); ABSOLUTE GRANULOCYTE CT 5.9 /CUMM (1.4-6.5); ABSOLUTE LYMPH COUNT 1.6 /CUMM (1.2-3.4); ABSOLUTE MONOCYTE COUNT 0.6 /CUMM (0.10-0.60); BASOPHIL % 0.2 % (0.0-2.0); EOSINOPHIL % 1.5 % (0-5); GRANULOCYTE % 70.7 % (42.2-75.2); MEAN CORPUSCULAR HGB 28.6 PG (27.0-31.0); MEAN CORPUSCULAR HGB CONC 33.3 G/DL (33.0-37.0); MEAN PLATELET VOLUME 7.8 FL (7.4-10.4); PLATELET COUNT 428 /CUMM (130-400); WHITE BLOOD CELL COUNT 8.3 /CUMM (4.8-10.8)
--- NOTE | 2017-04-30 10:50 | PN- Att Addend ---
Attending Addendum Attending Brief Note Patient seen and examined in the emergency room. Plan of care discussed with the medical team and the patient. Available lab work and radiology test reports were reviewed. Patient does not report any fever. His pain is well controlled. He denies any other acute symptoms. Any chest pain nausea vomiting or abdominal pain or diarrhea. Vital Signs Date Time Temp Pulse Resp B/P B/P Pulse O2 O2 Flow FiO2 Mean Ox Delivery Rate 04/30 0903 70 160/88 04/30 0903 70 160/88 04/30 0902 70 160/88 04/30 0808 98.1 61 20 138/72 94 Room Air 04/29 2248 99.0 70 20 130/82 96 Room Air 04/29 1919 97.9 67 20 117/64 97 Room Air 04/29 1734 96.8 61 20 115/61 97 Room Air Room Air 04/29 1549 96.8 61 20 115/61 97 Room Air Intake & Output 04/30 1600 04/30 0800 04/30 0000 Intake Total 440 340 Output Total 900 900 Balance -460 -560 Intake, IV 200 Intake, Oral 240 340 Number 0 Bowel Movements Output, Urine 900 900 Exam: General: Patient awake alert oriented without any distress CVS: S1 plus S2 without any murmur or gallops Chest: Few scattered crepitation without any wheeze. There is no respiratory distress. 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 Pale yellow crusted secretions noted. Perianal area show granulation tissue and open wound areas noted. Hydrocele is noted. Laboratory Tests 04/30 04/29 0728 1515 Chemistry Sodium (137 - 145 mmol/L) 137 Potassium (3.5 - 5.1 mmol/L) 3.5 Chloride (98 - 107 mmol/L) 98 Carbon Dioxide (22 - 30 mmol/L) 30 Anion Gap (5 - 16) 9 BUN (9 - 20 mg/dL) 9 Creatinine (0.7 - 1.2 mg/dL) 0.5 L Estimated GFR (>60 ml/min) > 60 BUN/Creatinine Ratio (7 - 25 %) 18.0 C-Reactive Prot, Quant (<1.0 mg/dL) > 9.0 H C-React Prot High Sens (1.0 - 3.0 mg/L) > 15.0 H Hematology CBC w Diff NO MAN DIFF REQ WBC (4.8 - 10.8 /CUMM) 8.3 RBC (4.70 - 6.10 /CUMM) 3.60 L Hgb (14.0 - 18.0 G/DL) 10.3 L Hct (42 - 52 %) 31.0 L MCV (80.0 - 94.0 FL) 86.0 MCH (27.0 - 31.0 PG) 28.6 RDW (11.5 - 14.5 %) 16.0 H Plt Count (130 - 400 /CUMM) 428 H MPV (7.4 - 10.4 FL) 7.8 Gran % (42.2 - 75.2 %) 70.7 Lymphocytes % (20.5 - 51.1 %) 19.8 L Monocytes % (1.7 - 9.3 %) 7.8 Eosinophils % (0 - 5 %) 1.5 Basophils % (0.0 - 2.0 %) 0.2 Absolute Granulocytes (1.4 - 6.5 /CUMM) 5.9 Absolute Lymphocytes (1.2 - 3.4 /CUMM) 1.6 Absolute Monocytes (0.10 - 0.60 /CUMM) 0.6 Absolute Eosinophils (0.0 - 0.7 /CUMM) 0.1 Absolute Basophils (0.0 - 0.2 /CUMM) 0 PUBS MCHC (33.0 - 37.0 G/DL) 33.3 ESR Westergren (0 - 10 MM) Pending Toxicology Urine Opiates Screen (>2000 NG/ML) 2090.00 H Methadone Screen (>300 NG/ML) < 40 Barbiturate Screen (>200 NG/ML) < 60 Ur Phencyclidine Scrn (>25 NG/ML) < 6.00 Amphetamines Screen (>1000 NG/ML) < 100 U Benzodiazepines Scrn (>200 NG/ML) < 85 Urine Cocaine Screen (>300 NG/ML) < 50 Urine Cannabis Screen (>50 NG/ML) 16.40 Urines Urine Color (YEL,AMB,STR) YEL Urine Clarity (CLEAR) HAZY H Urine pH (5.0 - 8.0) 7.0 Ur Specific [place] (1.001 - 1.035) 1.015 Urine Protein (NEG,<30 MG/DL) 30 H Urine Ketones (NEG) NEG Urine Nitrite (NEG) POS H Urine Bilirubin (NEG) NEG Urine Urobilinogen (0.1 - 1.0 EU/dl) 2.0 H Ur Leukocyte Esterase (NEG) SMALL H Ur Microscopic SEDIMENT EXAMINED Urine RBC (0 - 5 /HPF) RARE Urine WBC (0 - 2 /HPF) 3-5 H Ur Epithelial Cells (NONE,FEW) RARE Urine Bacteria (NEG/NONE) FEW H Urine Hemoglobin (NEG) TRACE-INTACT H Urine Glucose (N MG/DL) 500 H Microbiology Date/Time Procedure - Status Source Growth 04/30 06 Culture & Sensitivity - COLB EXTREMITIE 04/30 600 Gram Stain - COLB [facility] 04/29 1515 Urine Culture - RES URINE ROUT CT pelvis April 28 Diffuse edema about the buttocks without drainable fluid collections; however, the lack of IV contrast significantly limits evaluation. Stable enlarged iliac chain and inguinal lymph nodes. Stable chronic destructive changes to both femoral heads. No acute bony destruction is demonstrable. Assessment * Buttock area chronic wounds and cellulitis with multiple decubitus ulcers * Paraplegia * History diabetes * Status post chronic suprapubic indwelling catheter * Mild anemia * Mild hyponatremia * Hyperglycemia with uncontrolled diabetes with HbA1c of 10.8 * Suspected malnutrition with hypoalbuminemia 3.3 Plan * Patient was seen by plastic surgery. Patient is status post debridement yesterday. Consult note reviewed; no plan for any other acute surgical intervention is noted. * Continue IV Unasyn * Patient seen by infectious disease and consult note reviewed. * Obtain second pelvic x-rays multiple views to rule out osteomyelitis; patient may need MRI to rule out underlying osteomyelitis of the sacral bone given elevation of CRP. * Await cultures * Continue Lantus 30 units twice a day subcutaneous; Continues sliding scale high-dose
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
[2017-04-30 14:33] VITALS: BP 130/70
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
--- NOTE | 2017-04-30 20:14 | NUR ---
WOUND NURSE NOTE READ AND WHEN ATTEMPTED TO CHANGE PTS DRESSINGS, NO SUPPLIES AVAILABLE SUCH BETADINE AND DAKINS 1/4 STRENTH SOLUTION. [employer] WORKER [employer]Y INFORMED TAHT ORDER NEEDS TO BE PLACED DUE TO THERE NOT BEING ONE AT THIS TIME. WOUNDS CLEANED WITH NS AND ABD PADS CHANGED. PT ENCOURAGED TO CHANGE POSITIONS EVERY HOUR. HE MOVES INDEPENDENTLY. [facility] [employer] [facility] ORDERED AT [facility] MEDICINE PHYSICIAN AT 1900. PT PAIN CONTROLLED VIA MORPHINE AND PERCOCET FOR CHRONIC BACK PAIN.
--- NOTE | 2017-04-30 22:54 | RADIOLOGY REPORT ---
EXAMINATION: XR SACRUM AND COCCYX CLINICAL INFORMATION: Draining wound. Concern for osteomyelitis. COMPARISON: 04/28/2017. TECHNIQUE: 2 views of the sacrum and 2 views of the coccyx were obtained. FINDINGS: Again identified are extensive chronic destructive to each hip with loss of the femoral heads and irregularity to both acetabula. This is unchanged from prior exam. No acute destruction changes are suspected. The visualized lumbar vertebra are in normal alignment. There is disc height loss to the lower lumbar spine with anterior osteophyte formation. IMPRESSION: Extensive chronic destructive changes without evidence of acute destructive change.
[2017-04-30 23:50] VITALS: BP 124/61
[2017-05-01 07:43] VITALS: BP 118/60
--- NOTE | 2017-05-01 08:24 | PN- Att Addend ---
Attending Addendum Attending Brief Note Patient seen and examined in the emergency room. Plan of care discussed with the medical team and the patient. Available lab work and radiology test reports were reviewed. Patient does not report any fever. His pain is well controlled. He denies any other acute symptoms. Any chest pain nausea vomiting or abdominal pain or diarrhea. Vital Signs Date Time Temp Pulse Resp B/P B/P Pulse O2 O2 Flow FiO2 Mean Ox Delivery Rate 05/01 0743 98.2 68 20 118/60 95 Room Air 04/30 2350 98.3 67 20 124/61 94 Room Air 04/30 1433 98.4 68 18 130/70 98 Room Air 04/30 0903 70 160/88 04/30 0903 70 160/88 04/30 0902 70 160/88 Intake & Output 05/01 1600 05/01 0800 05/01 0000 Intake Total 100 650 Output Total 1000 1500 Balance -1000 100 -850 Intake, IV 100 150 Intake, Oral 500 Output, Urine 1000 1500 Exam: General: Patient awake alert oriented without any distress CVS: S1 plus S2 without any murmur or gallops Chest: Few scattered crepitation without any wheeze. There is no respiratory distress. 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 Pale yellow crusted secretions noted. Perianal area show granulation tissue and open wound areas noted. Hydrocele is noted. Laboratory Tests 05/01 05/01 1010 0742 Chemistry Sodium Pending Potassium Pending Chloride Pending Carbon Dioxide Pending Anion Gap Pending BUN Pending Creatinine Pending BUN/Creatinine Ratio Pending C-Reactive Prot, Quant Pending Hematology CBC w Diff Pending WBC Pending RBC Pending Hgb Pending Hct Pending MCV Pending MCH Pending RDW Pending Plt Count Pending MPV Pending PUBS MCHC Pending ESR Westergren Pending Pelvic x-rays Extensive chronic destructive changes without evidence of acute destructive change. Assessment * Buttock area chronic wounds and cellulitis with multiple decubitus ulcers * Paraplegia * History diabetes * Status post chronic suprapubic indwelling catheter * Mild anemia * Mild hyponatremia * Hyperglycemia with uncontrolled diabetes with HbA1c of 10.8 * Suspected malnutrition with hypoalbuminemia 3.3 Plan * Patient was seen by plastic surgery. Patient is status post debridement. Consult note reviewed; no plan for any other acute surgical intervention is noted. * Continue IV Unasyn * Patient seen by infectious disease and consult note reviewed. * rule out underlying osteomyelitis of the sacral bone given elevation of CRP. * Await cultures * Continue Lantus 30 units twice a day subcutaneous; Continues sliding scale high-dose * Obtain bone scan to rule out osteomyelitis
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
[2017-05-01 11:09] LABS: ABSOLUTE BASOPHIL COUNT 0 /CUMM (0.0-0.2); ABSOLUTE EOSINOPHIL COUNT 0.1 /CUMM (0.0-0.7); ABSOLUTE GRANULOCYTE CT 6.3 /CUMM (1.4-6.5); ABSOLUTE LYMPH COUNT 1.5 /CUMM (1.2-3.4); ABSOLUTE MONOCYTE COUNT 0.6 /CUMM (0.10-0.60); BASOPHIL % 0.2 % (0.0-2.0); EOSINOPHIL % 1.5 % (0-5); GRANULOCYTE % 73.7 % (42.2-75.2); HEMATOCRIT 29.7 % (42-52); MEAN CORPUSCULAR HGB 28.4 PG (27.0-31.0); MEAN CORPUSCULAR HGB CONC 32.9 G/DL (33.0-37.0); MEAN CORPUSCULAR VOLUME 86.3 FL (80.0-94.0); MEAN PLATELET VOLUME 7.6 FL (7.4-10.4); PLATELET COUNT 432 /CUMM (130-400); RBC DISTRIBUTION WIDTH 15.8 % (11.5-14.5); RED BLOOD CELL CT 3.44 /CUMM (4.70-6.10); WHITE BLOOD CELL COUNT 8.6 /CUMM (4.8-10.8)
--- NOTE | 2017-05-01 11:20 | NUR ---
NSG NOTE: PATIENT LEFT FLOOR AT APPROX 1120 VIA STRETCHER ACCOMPANIED BY DISTRIBUTION; A/OX3; RA; WILL CONT TO MONITOR FOR PT RETURN BACK TO FLOOR
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
[2017-05-01 15:21] VITALS: BP 148/68
--- NOTE | 2017-05-01 17:44 | NUCLEAR MEDICINE REPORT ---
EXAMINATION: NM BONE SCAN 3 PHASE CLINICAL INFORMATION: Osteomyelitis sacrum/coccyx, and hip. Nonhealing decubitus ulcers. COMPARISON: Radiographs of the sacrum and coccyx dated 04/30/2017 are available for comparison. No previous bone scan is available for comparison. CT scan of the pelvis dated 04/28/2017 is also available for comparison. TECHNIQUE: Initial rapid sequence images were obtained over the pelvis and proximal femurs the anterior and posterior projections during the bolus injection of 27.7 mCi Tc-99m HDP. Static images of the lower lumbar spine to the knees were then obtained 3.5 hours post injection. FINDINGS: Initial rapid sequence images show increased flow in the buttock regions which is most intense just to the left of midline but extends to the lateral aspects of both buttocks but more prominently on the right. Vascular flow in the iliac and proximal femoral vessels appears normal and bilaterally symmetrical. Blood pool images obtained immediately following the flow study show mildly increased soft tissue activity diffusely in the right buttock which extends from a lateral aspect of the right buttock to the midline and the medial aspect of the left buttock. The delayed static images show a focus of mildly increased activity in the coccyx in additional foci of mildly increased activity in the inferior aspect of the right sacroiliac joint and faintly in the mid left sacroiliac joint. There is a mild diffuse increase in activity in the right ischium, acetabular regions and the visualized proximal right femur, with a diminutive right femoral head which matches the appearance on the radiographs of 04/30/2017. There is absent activity in the left femoral neck and head also matching the appearance on the recent radiographs. The proximal left femoral shaft shows moderately increased activity diffusely and there is moderately increased activity in the intertrochanteric region of the right femur. In the knees there is a mild diffuse increase in activity with more prominently increased activity in the left patella and a focus of moderately increased activity in the lateral cortex of the lateral femoral condyle on the right. The urinary bladder, drained by a catheter is noted in the inferior aspects of both kidneys are faintly visualized. IMPRESSION: 1. These findings are most consistent with a diffuse cellulitis consistent with the known history of decubiti ulcers. No significant abnormality suspicious for active infection in the coccyx or sacrum are noted. Minimal abnormalities in the sacroiliac joints are likely arthritic in etiology. 2. Diffuse extensive abnormalities in the proximal femurs bilaterally are noted. These are probably due to chronic changes of neuropathic joints. There is no significantly increased flow in these regions strongly suggesting active inflammation is not present.
[2017-05-01 23:10] VITALS: BP 152/83
[2017-05-02 07:00] VITALS: BP 138/72
[2017-05-02 07:43] LABS: ABSOLUTE BASOPHIL COUNT 0 /CUMM (0.0-0.2); ABSOLUTE EOSINOPHIL COUNT 0.2 /CUMM (0.0-0.7); ABSOLUTE GRANULOCYTE CT 6.8 /CUMM (1.4-6.5); ABSOLUTE LYMPH COUNT 1.6 /CUMM (1.2-3.4); ABSOLUTE MONOCYTE COUNT 0.6 /CUMM (0.10-0.60); BASOPHIL % 0.4 % (0.0-2.0); EOSINOPHIL % 1.9 % (0-5); GRANULOCYTE % 73.8 % (42.2-75.2); MEAN CORPUSCULAR HGB 28.3 PG (27.0-31.0); MEAN CORPUSCULAR HGB CONC 33.3 G/DL (33.0-37.0); MEAN CORPUSCULAR VOLUME 85.2 FL (80.0-94.0); MEAN PLATELET VOLUME 7.6 FL (7.4-10.4); PLATELET COUNT 407 /CUMM (130-400); RBC DISTRIBUTION WIDTH 15.4 % (11.5-14.5); RED BLOOD CELL CT 3.41 /CUMM (4.70-6.10); WHITE BLOOD CELL COUNT 9.2 /CUMM (4.8-10.8)
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
--- NOTE | 2017-05-02 11:32 | PN- Att Addend ---
Attending Addendum Attending Brief Note Patient seen and examined in the emergency room. Plan of care discussed with the medical team and the patient. Available lab work and radiology test reports were reviewed. Patient does not report any fever. His pain is well controlled. He denies any other acute symptoms. Any chest pain nausea vomiting or abdominal pain or diarrhea. Assessment * Buttock area chronic wounds and cellulitis with multiple decubitus ulcers * Paraplegia * Rule out osteomyelitis- bone scan 05/01 negative * History of diabetes with hyperglycemia * Status post chronic suprapubic indwelling catheter * Mild anemia * Mild hyponatremia * Hyperglycemia with uncontrolled diabetes with HbA1c of 10.8 * Suspected malnutrition with hypoalbuminemia 3.3 Plan * Patient was seen by plastic surgery. Patient is status post debridement. Consult note reviewed; no plan for any other acute surgical intervention is noted. * Continue IV Unasyn * Patient seen by infectious disease and consult note reviewed. * Continue Lantus 30 units twice a day subcutaneous; Continues sliding scale high-dose * no need for daily labs. check labs onlly if clinical status changes. * Increase lantus to 32 units bid Exam: General: Patient awake alert oriented without any distress CVS: S1 plus S2 without any murmur or gallops Chest: Few scattered crepitation without any wheeze. There is no respiratory distress. 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 Pale yellow crusted secretions noted. Perianal area show granulation tissue and open wound areas noted. Hydrocele is noted. Laboratory Tests 05/02 05/01 0634 1446 Chemistry Sodium (137 - 145 mmol/L) 137 139 Potassium (3.5 - 5.1 mmol/L) 3.5 3.5 Chloride (98 - 107 mmol/L) 100 99 Carbon Dioxide (22 - 30 mmol/L) 28 31 H Anion Gap (5 - 16) 9 9 BUN (9 - 20 mg/dL) 10 10 Creatinine (0.7 - 1.2 mg/dL) 0.5 L 0.6 L Estimated GFR (>60 ml/min) > 60 > 60 BUN/Creatinine Ratio (7 - 25 %) 20.0 16.7 C-Reactive Prot, Quant (<1.0 mg/dL) 6.8 H Hematology CBC w Diff NO MAN DIFF REQ WBC (4.8 - 10.8 /CUMM) 9.2 RBC (4.70 - 6.10 /CUMM) 3.41 L Hgb (14.0 - 18.0 G/DL) 9.7 L Hct (42 - 52 %) 29.0 L MCV (80.0 - 94.0 FL) 85.2 MCH (27.0 - 31.0 PG) 28.3 RDW (11.5 - 14.5 %) 15.4 H Plt Count (130 - 400 /CUMM) 407 H MPV (7.4 - 10.4 FL) 7.6 Gran % (42.2 - 75.2 %) 73.8 Lymphocytes % (20.5 - 51.1 %) 17.0 L Monocytes % (1.7 - 9.3 %) 6.9 Eosinophils % (0 - 5 %) 1.9 Basophils % (0.0 - 2.0 %) 0.4 Absolute Granulocytes (1.4 - 6.5 /CUMM) 6.8 H Absolute Lymphocytes (1.2 - 3.4 /CUMM) 1.6 Absolute Monocytes (0.10 - 0.60 /CUMM) 0.6 Absolute Eosinophils (0.0 - 0.7 /CUMM) 0.2 Absolute Basophils (0.0 - 0.2 /CUMM) 0 PUBS MCHC (33.0 - 37.0 G/DL) 33.3 Vital Signs Date Time Temp Pulse Resp B/P B/P Pulse O2 O2 Flow FiO2 Mean Ox Delivery Rate 05/02 0942 64 158/80 05/02 0941 64 158/80 05/02 0939 64 158/60 05/02 0700 98.7 78 18 138/72 93 Room Air 05/01 2310 98.8 70 20 152/83 95 05/01 1521 98.2 67 20 148/68 95 Intake & Output 05/02 1600 05/02 0800 05/02 0000 Intake Total 540 540 Output Total 850 900 Balance -310 -360 Intake, IV 100 Intake, Oral 540 440 Output, Urine 850 900 Bone scan 1. These findings are most consistent with a diffuse cellulitis consistent with the known history of decubiti ulcers. No significant abnormality suspicious for active infection in the coccyx or sacrum are noted. Minimal abnormalities in the sacroiliac joints are likely arthritic in etiology. 2. Diffuse extensive abnormalities in the proximal femurs bilaterally are noted. These are probably due to chronic changes of neuropathic joints. There is no significantly increased flow in these regions strongly suggesting active inflammation is not present.
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
[2017-05-02 14:54] VITALS: BP 118/60
[2017-05-02 23:02] VITALS: BP 132/86
--- NOTE | 2017-05-03 00:01 | NUR ---
DRSNGS CHANGED AT 2230. PT TOLERATING PROCEDURE WELL. PT COMPLAINED OF HEADAHCE AND BACKACHE. IV MORPHINE GIVEN FOR PAIN. PT ATE DINNER AT 2230 WELL DUE TO PT SLEEPING THROUGHOUT SHIFT. VSS. PT COMPLAINED OF BEING COLD, EXTRA BLANKET GIVEN. CALL MARY TOLLIVER.
[2017-05-03 07:19] VITALS: BP 130/72
--- NOTE | 2017-05-03 09:00 | PN- Att Addend ---
Attending Addendum Attending Brief Note Patient seen and examined in the emergency room. Plan of care discussed with the medical team and the patient. Available lab work and radiology test reports were reviewed. His pain is well controlled. He denies any other acute symptoms. Any chest pain nausea vomiting or abdominal pain or diarrhea. Patient thinks that he had a low blood glucose, however his lowest blood sugar was 134. He also thinks he had chills last night. However there is no documented fever Assessment * Buttock area chronic wounds and cellulitis with multiple decubitus ulcers * Paraplegia * Rule out osteomyelitis- bone scan 05/01 negative * History of diabetes with hyperglycemia * Status post chronic suprapubic indwelling catheter * Mild anemia * Mild hyponatremia * Hyperglycemia with uncontrolled diabetes with HbA1c of 10.8; blood sugars have improved with increased dose of Lantus * Suspected malnutrition with hypoalbuminemia 3.3 Plan * Patient was seen by plastic surgery. Patient is status post debridement. Consult note reviewed; no plan for any other acute surgical intervention is noted. * Continue IV Unasyn; we'll switch to oral Augmentin 875 mg twice a day from tomorrow * Continue Lantus 32 units twice a day subcutaneous; Continues sliding scale high-dose * no need for daily labs. check labs onlly if clinical status changes. * Prepare for possible discharge tomorrow * Case management to assist with disposition Exam: General: Patient awake alert oriented without any distress CVS: S1 plus S2 without any murmur or gallops Chest: Few scattered crepitation without any wheeze. There is no respiratory distress. 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 Pale yellow crusted secretions noted. Perianal area show granulation tissue and open wound areas noted. Hydrocele is noted. Vital Signs Date Time Temp Pulse Resp B/P B/P Pulse O2 O2 Flow FiO2 Mean Ox Delivery Rate 05/03 0719 98.1 73 20 130/72 95 05/02 2302 98.7 80 18 132/86 94 Room Air 05/02 1454 99.4 70 20 118/60 93 Room Air 05/02 0942 64 158/80 05/02 0941 64 158/80 05/02 0939 64 158/60
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
[2017-05-03] MEDS ORDERED: AUGMENTIN 875-1 EACH PO (10:49)
--- NOTE | 2017-05-03 11:04 | Patient Discharge Instructions ---
Discharge Instructions General Discharge Information You were seen/treated for: rectal abscess You had these procedures: debridement Watch for these problems: worsening pain erythema fever Other wound care: Follow up with the plastic surgeon for further intervention for the wounds. Special Instructions: 1. follow up with pcp 2. finish antibotic course 3. follow up with plastic surgeon 4. follow up with animal chiropractor WOUND CARE INSTRUCTIONS Continue local wound care Frequent repositioning Buttock/sacral wounds with NS FB 1/4 STRENGTH DAKINS MOIST GAUZE AND DPD TWICE DAILY AND PRN Lower extremity wound cleansing with xeroform gauze Bilateral lower extremity offloading Diet Continue normal diet: No Recommended Diet: Heart Healthy Activity Activity Self Limited: Yes Acute Coronary Syndrome Inclusion Criteria At DC or during hospital stay patient has or had the following: ACS DIAGNOSIS No Discharge Core Measures Meds if any: Prescribed or Continued at Discharge Meds if any: NOT Prescribed or Continued at Discharge Congestive Heart Failure Inclusion Criteria At DC or during hospital stay patient has or had the following: CHF DIAGNOSIS No Discharge Core Measures Meds if any: Prescribed or Continued at Discharge Meds if any: NOT Prescribed or Continued at Discharge Cerebrovascular accident Inclusion Criteria At DC or during hospital stay patient has or had the following: CVA/TIA Diagnosis No Discharge Core Measures Meds if any: Prescribed or Continued at Discharge Meds if any: NOT Prescribed or Continued at Discharge Venous thromboembolism Inclusion Criteria VTE Diagnosis No VTE Type NONE VTE Confirmed by (Test) NONE Discharge Core Measures - Per Current guidelines, there needs to be overlap - treatment for the first 5 days of Warfarin therapy. - If discharged on Warfarin prior to 5 days of - overlap therapy, the patient will need to be - assessed for post discharge needs including - *Post discharge parental anticoagulation - *Warfarin and/or parental anticoagulation education - *Follow up date to check INR post discharge At least 5 days overlap therapy as Inpatient No Meds if any: Prescribed or Continued at Discharge Note: Overlap Therapy is Warfarin and Anticoagulant Meds if any: NOT Prescribed or Continued at Discharge
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
[2017-05-03 14:53] VITALS: BP 118/80
[2017-05-03 22:49] VITALS: BP 124/74
[2017-05-04 07:39] VITALS: BP 106/62
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
[2017-05-04] MEDS ORDERED: LEVEMIR100 UNIT/1 SC (10:11)
[2017-05-04] MEDS ORDERED: AUGMENTIN 875-1 EACH PO ×2 (10:14→19:49)
[2017-05-04 12:05] VITALS: BP 106/62
--- NOTE | 2017-05-04 13:20 | PN- Att Addend ---
See Addendum Attending Addendum Attending Brief Note atient seen and examined in the emergency room. Plan of care discussed with the medical team and the patient. Available lab work and radiology test reports were reviewed. His pain is well controlled. He denies any other acute symptoms. Any chest pain nausea vomiting or abdominal pain or diarrhea. Assessment * Buttock area chronic wounds and cellulitis with multiple decubitus ulcers * Paraplegia * Rule out osteomyelitis- bone scan 05/01 negative * History of diabetes with hyperglycemia * Status post chronic suprapubic indwelling catheter * Mild anemia * Mild hyponatremia * Hyperglycemia with uncontrolled diabetes with HbA1c of 10.8; blood sugars have improved with increased dose of Lantus; he may need further adjustment of Lantus. His Accu-Chek last 24 hours were between [phone] * Suspected malnutrition with hypoalbuminemia 3.3 Plan * Change IV Unasyn to oral Augmentin * Continue Lantus 32 units twice a day subcutaneous; Continues sliding scale high-dose * Discharge home today * Follow with PCP and plastic surgery * Patient will be going home to live with his sister Exam: General: Patient awake alert oriented without any distress CVS: S1 plus S2 without any murmur or gallops Chest: Few scattered crepitation without any wheeze. There is no respiratory distress. Abdomen: Soft nontender, bowel sound present, no guarding or rebound COAL PICKER: Awake alert oriented without any focal neuro deficit and follows command appropriately Extremities: No edema; no clubbing or cyanosis noted Buttocks: Buttock area shows chronic scarring with multiple previous surgical scars noted. Pale yellow crusted secretions noted. Perianal area show granulation tissue and open wound areas noted. Hydrocele is noted. Vital Signs Date Time Temp Pulse Resp B/P B/P Pulse O2 O2 Flow FiO2 Mean Ox Delivery Rate 05/04 1205 05/04 1205 05/04 1204 05/04 0739 99.0 78 20 106/62 91 05/03 2249 98.6 66 20 124/74 96 05/03 1453 98.1 62 18 118/80 96 Room Air
[2017-05-04] MEDS ORDERED: BENEPROTEIN1 EACH PO (20:22)
== END 2017-05-04 19:00 | disposition home health service (06) | DRG 383 ==
LOC: ERH 19:15 → ERHI 22:04 → 2NB 22:04 → EDBEDREQ 23:55 → ENRESERV 04-29 20:25 → ENTRNSPT 04-29 21:07 → EDTRNSPTSTS 04-29 21:20 → 2NB 04-29 21:31 → CMPTRNSPT 04-29 21:41 → 2NB 05-01 07:44 → ENPENDDIS 05-04 11:58 → 2NB 05-04 19:00
PROVIDERS: Emergency Medicine; Student in an Organized Health Care Education/Training Program; ADMIT Student in an Organized Health Care Education/Training Program
PROC: 0JBM0ZZ Excision of Left Upper Leg Subcutaneous Tissue and Fascia, Open Approach (ICD-10-PCS; principal; 2017-04-29)
DX: L03.317 Cellulitis of buttock (principal); L89.224 Pressure ulcer of left hip, stage 4; L89.213 Pressure ulcer of right hip, stage 3; L89.894 Pressure ulcer of other site, stage 4; L89.154 Pressure ulcer of sacral region, stage 4; E46 Unspecified protein-calorie malnutrition; G82.20 Paraplegia, unspecified; N31.9 Neuromuscular dysfunction of bladder, unspecified; L89.520 Pressure ulcer of left ankle, unstageable; E87.1 Hypo-osmolality and hyponatremia; L89.890 Pressure ulcer of other site, unstageable; E11.65 Type 2 diabetes mellitus with hyperglycemia; F41.9 Anxiety disorder, unspecified; D64.9 Anemia, unspecified; Z68.24 Body mass index [BMI] 24.0-24.9, adult; Z79.4 Long term (current) use of insulin; I10 Essential (primary) hypertension; X58.XXXS Exposure to other specified factors, sequela; F17.210 Nicotine dependence, cigarettes, uncomplicated; K21.9 Gastro-esophageal reflux disease without esophagitis
CPT/HCPCS: 2NBSP; ERO; 36415; 72220; 73502-LT; 80307; 81001; 82436; 87040; 87070; 87086; 96374; 96375; A9502; J0131; J1650; J3370; J3490

== ENCOUNTER 2018-02-23 06:18 | Inpatient (IN) | payer OTHER ==
[~2018-02-23] VITALS: Ht 170.2 cm; Wt 105.7 kg
[~2018-02-23 06:18] MED LIST changes: -AMLODIPINE BESY10 M1 PO; +AMLODIPINE BESYL5 M1 PO; +BENEPROTEIN1 EACH PO; +COZAAR50 M1 PO; -GABAPENTIN400 M2 PO; -LOSARTAN POTAS100 M1 PO; +NEURONTIN300 M1 PO
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
[2018-02-23 06:52] LABS: ABSOLUTE BASOPHIL COUNT 0 /CUMM (0.0-0.2); ABSOLUTE EOSINOPHIL COUNT 0 /CUMM (0.0-0.7); ABSOLUTE GRANULOCYTE CT 10.9 /CUMM (1.4-6.5); ABSOLUTE LYMPH COUNT 0.9 /CUMM (1.2-3.4); ABSOLUTE MONOCYTE COUNT 0.8 /CUMM (0.10-0.60); BASOPHIL % 0.1 % (0.0-2.0); EOSINOPHIL % 0.1 % (0-5); HEMATOCRIT 39.7 % (42-52); MEAN CORPUSCULAR HGB 26.3 PG (27.0-31.0); MEAN CORPUSCULAR VOLUME 84.8 FL (80.0-94.0); MEAN PLATELET VOLUME 8.3 FL (7.4-10.4); RBC DISTRIBUTION WIDTH 16.5 % (11.5-14.5); RED BLOOD CELL CT 4.68 /CUMM (4.70-6.10); WHITE BLOOD CELL COUNT 12.6 /CUMM (4.8-10.8)
[2018-02-23 07:00] LABS: GRANULOCYTE % 86.3 % (42.2-75.2); PLATELET COUNT 263 /CUMM (130-400)
[2018-02-23] MEDS ORDERED: HUMALOG100 UNIT/2 SC ×2 (07:55→08:03)
[2018-02-23] MEDS ORDERED: METFORMIN HCL500 M3 PO (07:57)
[2018-02-23] MEDS ORDERED: DAILY MULTIPLE1 EACH PO (07:59)
[2018-02-23] MEDS ORDERED: VITAMIN C500 M6 PO (08:00)
[2018-02-23] MEDS ORDERED: OXYCODONE HCL10 M2 PO (08:02)
[2018-02-23] MEDS ORDERED: BUPROPION HCL150 M4 PO (08:05)
[2018-02-23] MEDS ORDERED: COLACE100 M1 PO (08:05)
[2018-02-23] MEDS ORDERED: DULOXETINE HCL30 MG PO (08:06)
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
--- NOTE | 2018-02-23 10:21 | Admission Certification ---
Admission Certification Certification Statement - As attending physician, I certify that at the time of - admission, based on clinical presentation, severity of - symptoms, need for further diagnostic testing and - therapeutic interventions, and risk of adverse outcomes - without in-hospital treatment, in my clinical assessment, - this patient requires an acute hospital stay for a minimum - of two nights or longer. I have also considered psychsocial - factors such as support system, advanced age, financial - issues, cognitive issues, and failed out-patient treatments, - past re-admission history, safety of patient, and lack of - compliance as applicable. Specific rationale supporting this admission is: Fever leukocytosis, 30 urine despite having a suprapubic catheter, malaise flank pain, and infected decubitus
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
[2018-02-23 11:50] VITALS: BP 140/90
[2018-02-23 15:24] VITALS: BP 140/90
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
[2018-02-23 19:11] VITALS: BP 140/74
--- NOTE | 2018-02-23 20:26 | ULTRASOUND REPORT ---
EXAMINATION: US ABDOMEN LIMITED CLINICAL INFORMATION: Right upper quadrant tenderness. Elevated LFTs.. COMPARISON: CT performed 11/03/2016 TECHNIQUE: Real-time imaging of the right upper quadrant abdominal viscera. FINDINGS: PANCREAS: The pancreatic head and body are unremarkable. The tail is partially obscured by gas. LIVER: The liver is enlarged, measuring 24 cm in length. There is increased hepatic echogenicity with normal shape. No focal lesion or intrahepatic biliary duct dilatation. GALLBLADDER: Hydropic appearance of the gallbladder. No gallstones. No gallbladder wall thickening or pericholecystic fluid. COMMON BILE DUCT: Normal in caliber measuring 0.6 cm in diameter. RIGHT KIDNEY: Normal. No hydronephrosis. No renal calculi or focal parenchymal lesions. The kidney measures 14.8 cm in maximum dimension. FREE FLUID: None. IMPRESSION: Hepatomegaly with hepatic steatosis. Hydropic appearance of the gallbladder. No inflammatory changes.
[2018-02-23 21:18] VITALS: BP 144/90
--- NOTE | 2018-02-23 23:08 | CT SCAN REPORT ---
EXAMINATION: CT ANGIOGRAM OF THE CHEST WITH AND WITHOUT CONTRAST (CT PULMONARY ANGIOGRAM FOR PE) CLINICAL INFORMATION: : LOW O2 SAT NEW, TACHYCARDIA, PARAPLEGIC, CT NO PNEUMONIA COMPARISON: CT chest today, 01/05/2017 TECHNIQUE: Prior to contrast administration, noncontrast localization images were obtained. Subsequently, multidetector volumetric imaging was performed from the thoracic inlet to below the diaphragms following the administration of 95 mL Optiray 320 intravenous contrast. No contrast reaction reported. Sagittal, coronal, and MIP oblique sagittal reformatted images were obtained on the CT workstation, uploaded to PACS, and reviewed. Total exam dose-length product 565.74 mGy-cm. FINDINGS: QUALITY OF STUDY/CONTRAST BOLUS: Satisfactory PULMONARY ARTERIES: No central or segmental pulmonary emboli. THORACIC AORTA: No aneurysm or dissection. LUNG: There is dependent atelectasis at both lung bases. This is greater on the right than the left. There are also groundglass patchy airspace opacities at dependent lung involving the right upper lobe and right lower lobe. There are also a few groundglass opacities at the anterior nondependent lingula and left upper lobe. This airspace disease is new since the prior CAT scan performed this a.m. PLEURA: No pleural effusion or pneumothorax. MEDIASTINUM: Normal heart size. No pericardial effusion. No hilar or mediastinal lymphadenopathy. No evidence of septal bowing or right heart strain. CHEST WALL/AXILLA: No axillary or internal mammary lymphadenopathy. OSSEOUS STRUCTURES: There is degenerative spondylosis of the spine orthopedic hardware in the lower thoracic spine vertebrae causing streak artifact through the upper abdomen. UPPER ABDOMEN: Diffuse low attenuation of liver parenchyma due to fatty change. No reflux of contrast into the hepatic veins to suggest elevated right heart pressures. IMPRESSION: 1. No evidence of pulmonary embolism. 2. Dependent bilateral airspace disease, greater on right than left, with scattered groundglass opacities. This is new since prior CAT scan 02/23/2018. VTE: negative
[2018-02-24 07:38] VITALS: BP 164/90
[2018-02-24 08:55] LABS: ABSOLUTE BASOPHIL COUNT 0 /CUMM (0.0-0.2); ABSOLUTE EOSINOPHIL COUNT 0 /CUMM (0.0-0.7); ABSOLUTE GRANULOCYTE CT 12.4 /CUMM (1.4-6.5); ABSOLUTE LYMPH COUNT 0.8 /CUMM (1.2-3.4); ABSOLUTE MONOCYTE COUNT 0.7 /CUMM (0.10-0.60); BASOPHIL % 0 % (0.0-2.0); EOSINOPHIL % 0 % (0-5); GRANULOCYTE % 88.8 % (42.2-75.2); HEMATOCRIT 35.2 % (42-52); MEAN CORPUSCULAR HGB 28.5 PG (27.0-31.0); MEAN CORPUSCULAR HGB CONC 33.3 G/DL (33.0-37.0); MEAN CORPUSCULAR VOLUME 85.4 FL (80.0-94.0); MEAN PLATELET VOLUME 8.9 FL (7.4-10.4); PLATELET COUNT 222 /CUMM (130-400); RED BLOOD CELL CT 4.13 /CUMM (4.70-6.10); WHITE BLOOD CELL COUNT 13.9 /CUMM (4.8-10.8)
--- NOTE | 2018-02-24 09:54 | PN- Att Addend ---
Attending Addendum Attending Brief Note Patient complaining of "pain" stating he's not getting enough pain medication Temp max 100.5. No new changes on physical CBC pending, cultures pending. Will check with infectious diseases see the antibiotic coverage is adequate and continue treatment for sepsis and try to find the origin of the infection continue wound care 24 TOTALS 02/24 0000 02/23 0000 Intake Total 9100 Output Total 5400 Balance 3700 Intake, IV 3400 Intake, Oral 5700 Number 2 Bowel Movements Output, Urine 5400 Patient 234 lb Weight Weight Reported by Patient Measurement Method Current Medications Sig/Cynthia Start time Last Medication Dose Route Stop Time Status Admin Acetaminophen 1,000 MG ONCE ONE 02/24 0930 DC N/A 1 UNIT IV 02/24 0944 Acetaminophen 650 MG .STK-MED ONE 02/24 0030 DC PO 02/24 0031 Acetaminophen 1,000 MG .STK-MED ONE 02/23 1927 DC IV 02/23 192 Acetaminophen 1,000 MG ONCE ONE 02/23 1615 DC 02/23 IV 02/23 1616 1616 Acetaminophen 650 MG Q6P PRN 02/23 1000 AC 02/24 PO 0626 Amlodipine Besylate 5 MG DAILY 02/24 0900 AC 02/24 PO 0943 Bupropion HCl 150 MG DAILY 02/24 0900 AC 02/24 PO 0943 Ceftazidime 2,000 MG IQ8 02/23 1600 DC IV Ceftazidime 1,000 MG IQ8 02/23 1600 AC 02/24 IV 0946 Duloxetine HCl 90 MG 1800 02/23 1800 AC 02/23 PO 1822 Enoxaparin Sodium 40 MG DAILY 02/24 0900 AC 02/24 SC 0945 Escitalopram Oxalate 20 MG DAILY 02/24 0900 AC 02/24 PO 0945 Gabapentin 300 MG Q6 02/23 1200 AC 02/24 PO 0552 Hydromorphone HCl 2 MG .STK-MED ONE 02/23 192 DC IV 02/23 192 Hydromorphone HCl 0.2 MG ONCE PRN 02/23 1815 AC 02/24 IV 0947 Hydromorphone HCl 0.2 MG ONCE PRN 02/23 1200 DC 02/23 IV 02/23 1800 1448 Insulin Aspart 0 TIDAC 02/23 1200 AC 02/24 SC 0946 Insulin Detemir 10 UNITS BID 02/24 0900 AC 02/24 SC 0946 Metoprolol Tartrate 100 MG BID 02/23 2100 AC 02/24 PO 0945 Omeprazole 40 MG DAILY AC 02/24 0700 AC 02/24 PO 0552 Oxycodone HCl 5 MG ONCE ONE 02/24 0900 DC 02/24 PO 02/24 0901 0946 Oxycodone HCl 5 MG Q8P PRN 02/23 0930 AC 02/24 PO 0442 Sodium Chloride 1,000 ML Q10H 02/23 1000 AC 02/24 IV 0407 Sodium Chloride 1,000 ML BOLUS ONE 02/23 0900 DC 02/23 IV 02/23 0959 1204 Sodium Chloride 1,000 ML BOLUS ONE 02/23 0900 DC 02/23 IV 02/23 0959 1302 Vancomycin HCl 1,500 MG Q12 02/23 2100 DC Sodium Chloride 250 ML IV Vancomycin HCl 1,500 MG Q12 02/23 2100 AC 02/24 Sodium Chloride 250 ML IV 0943 Laboratory Tests 02/24/18 0802: ESR Westergren Pending 02/24/18 0802: Anion Gap 11, Estimated GFR > 60, BUN/Creatinine Ratio 18.0, Total Bilirubin 0.7 , Direct Bilirubin 0.2, AST 33, ALT 60, Alkaline Phosphatase 114, Total Protein 6.5, Albumin 2.8 L, CBC w Diff Pending, WBC Pending, RBC Pending, Hgb Pending, Hct Pending, MCV Pending, MCH Pending, MCHC Pending, RDW Pending, Plt Count Pending, MPV Pending, Gran % Pending, Lymphocytes % Pending, Monocytes % Pending , Eosinophils % Pending, Basophils % Pending, Absolute Granulocytes Pending, Absolute Lymphocytes Pending, Absolute Monocytes Pending, Absolute Eosinophils Pending, Absolute Basophils Pending 02/23/18 1009: Lactic Acid 2.1 02/23/18 0640: Urine Opiates Screen 299, Methadone Screen 68, Barbiturate Screen < 60, Ur Phencyclidine Scrn < 6.00, Amphetamines Screen 316, U Benzodiazepines Scrn < 85, Urine Cocaine Screen < 50, Urine Cannabis Screen < 5.00, Urinalysis HEAVY H, Urine Color YEL, Urine Clarity TURBD H, Urine pH 6.0, Ur Specific [place] >= 1.030, Urine Protein >=300 H, Urine Ketones NEG, Urine Nitrite POS H, Urine Bilirubin NEG, Urine Urobilinogen 1.0, Ur Leukocyte Esterase TRACE H, Ur Microscopic SEDIMENT EXAMINED, Urine RBC >75 H, Urine WBC 5-10 H, Urine Crystals 3+ UR AC H, Urine Bacteria PACKD H, Micro UA Comment BUDDING YEAST H , Urine Hemoglobin LARGE H, Urine Glucose 250 H 02/23/18 0633: Lactic Acid 2.6 H 02/23/18 0633: Anion Gap 13, Estimated GFR > 60, BUN/Creatinine Ratio 16.7, Glucose 250 H, Calcium 8.8, Total Bilirubin 0.5, Direct Bilirubin 0.2, AST 64 H, ALT 98 H, Alkaline Phosphatase 141 H, Total Protein 8.0, Albumin 3.6, Amylase 31, Lipase 58, CBC w Diff NO MAN DIFF REQ, RBC 4.68 L, MCV 84.8, MCH 26.3 L, MCHC 31.0 L , RDW 16.5 H, MPV 8.3, Gran % 86.3 H, Lymphocytes % 7.5 L, Monocytes % 6.0, Eosinophils % 0.1, Basophils % 0.1, Absolute Granulocytes 10.9 H, Absolute Lymphocytes 0.9 L, Absolute Monocytes 0.8 H, Absolute Eosinophils 0, Absolute Basophils 0 Replace potassium.
--- NOTE | 2018-02-24 10:08 | PN- Infect Dx ---
Subjective Subjective: T-max 102.7. He complains of severe left flank pain. He apparently desaturated last evening, requiring an increase in his oxygen but he does not report any shortness of breath presently. Objective Last 24 Hrs of Vital Signs/I&O Vital Signs Date Time Temp Pulse Resp B/P B/P Pulse O2 O2 Flow FiO2 Mean Ox Delivery Rate 02/24 0945 100.5 110 22 164/90 02/24 0943 100.5 110 22 164/90 02/24 0740 110 02/24 0738 100.5 123 22 164/90 92 Nasal 3.0L Cannula 02/24 0626 100.5 02/24 0000 93 Nasal 4.0L Cannula 02/23 2118 98.8 107 20 144/90 88 02/23 1911 99.0 130 20 140/74 93 02/23 1524 102.5 127 22 140/90 93 02/23 1150 102.7 104 22 140/90 94 02/23 1015 99.0 76 18 136/85 98 Room Air Intake & Output 02/24 1600 02/24 0800 02/24 0000 Intake Total 1400 5000 Output Total 400 2800 Balance 1000 2200 Intake, IV 800 400 Intake, Oral 600 4600 Output, Urine 400 2800 Physical Exam Other Physical Findings: He appears uncomfortable but in no acute distress Lungs are clear Heart regular rhythm with no murmur Abdomen is obese, soft, nontender with positive bowel sounds; suprapubic tube in place Back left CVA tenderness Results Last 24 Hours of Lab Results: Laboratory Tests 02/24 02/24 02/23 0802 0802 1009 Chemistry Sodium (137 - 145 mmol/L) 139 Potassium (3.5 - 5.1 mmol/L) 3.1 L Chloride (98 - 107 mmol/L) 102 Carbon Dioxide (22 - 30 mmol/L) 25 Anion Gap (5 - 16) 11 BUN (9 - 20 mg/dL) 9 Creatinine (0.7 - 1.2 mg/dL) 0.5 L Estimated GFR (>60 ml/min) > 60 BUN/Creatinine Ratio (7 - 25 %) 18.0 Lactic Acid (0.7 - 2.1 mmol/L) 2.1 Total Bilirubin (0.2 - 1.3 mg/dL) 0.7 Direct Bilirubin (< 0.4 mg/dL) 0.2 AST (17 - 59 U/L) 33 ALT (21 - 72 U/L) 60 Alkaline Phosphatase (< 127 U/L) 114 Total Protein (6.3 - 8.2 g/dL) 6.5 Albumin (3.5 - 5.0 g/dL) 2.8 L Hematology CBC w Diff Pending WBC Pending RBC Pending Hgb Pending Hct Pending MCV Pending MCH Pending MCHC Pending RDW Pending Plt Count Pending MPV Pending Gran % Pending Lymphocytes % Pending Monocytes % Pending Eosinophils % Pending Basophils % Pending Absolute Granulocytes Pending Absolute Lymphocytes Pending Absolute Monocytes Pending Absolute Eosinophils Pending Absolute Basophils Pending ESR Westergren Pending Last 24 Hours of Fadi Results: Blood cultures 2 February 23 negative Urine culture February 23 greater than 100,000 colonies of alpha strep, Enterococcus and gram-negative rods Recent Imaging Studies: CTA of the chest February 23 reveals dependent bilateral airspace disease with scattered groundglass opacities Assessment/Plan ID Impression: Fevers lower grade, with white blood cell count from today pending, on Vancomycin and Ceftazidime, Day 2 of treatment for possible sepsis of urologic origin, with left flank tenderness and a positive urine culture, though, with a suprapubic catheter in place, a positive urine culture is difficult to interpret. His CTA of the chest does reveal new groundglass opacities, which could be secondary to aspiration pneumonia, though feel this is less likely. The CT scan of the pelvis did suggest the possibility of an acute, superimposed on chronic, osteomyelitis of the sacrum but doubt that this is the source of his recent feve; therefore, further workup could be done as an outpatient. Suggestion: 1. Follow-up final cultures 2. Consider bone scan for further evaluation of sacral osteomyelitis 3. Continue Vancomycin and Ceftazidime pending above
[2018-02-24 14:08] VITALS: BP 140/90
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
[2018-02-24 16:44] VITALS: BP 190/92
--- NOTE | 2018-02-24 17:05 | RADIOLOGY REPORT ---
EXAMINATION: XR PORTABLE CHEST CLINICAL INFORMATION: Worsening shortness of breath COMPARISON: CTA 02/23/2018 TECHNIQUE: Portable frontal view of the chest was obtained. FINDINGS: Limited study. Lordotic view. Low lung volumes. There appear to be airspace opacities in bilateral lung bases, more prominent on the right, which may reflect bronchovascular crowding, atelectasis. There appears to be vascular congestion present. There is hazy opacity in the right mid to lower lung. IMPRESSION: Very limited study. Low lung volumes. Bibasilar airspace opacities. Findings suggest possible pulmonary edema. Repeat radiograph is recommended.
[2018-02-24 17:14] LABS: ABSOLUTE BASOPHIL COUNT 0 /CUMM (0.0-0.2); ABSOLUTE EOSINOPHIL COUNT 0 /CUMM (0.0-0.7); ABSOLUTE GRANULOCYTE CT 6.8 /CUMM (1.4-6.5); ABSOLUTE MONOCYTE COUNT 0.1 /CUMM (0.10-0.60); BASOPHIL % 0 % (0.0-2.0); EOSINOPHIL % 0.2 % (0-5); MEAN CORPUSCULAR HGB 28.1 PG (27.0-31.0); MEAN CORPUSCULAR HGB CONC 32.4 G/DL (33.0-37.0); MEAN CORPUSCULAR VOLUME 86.8 FL (80.0-94.0); MEAN PLATELET VOLUME 8.6 FL (7.4-10.4); PLATELET COUNT 220 /CUMM (130-400); RBC DISTRIBUTION WIDTH 16.6 % (11.5-14.5); RED BLOOD CELL CT 4.87 /CUMM (4.70-6.10); WHITE BLOOD CELL COUNT 7.9 /CUMM (4.8-10.8)
[2018-02-24 17:17] LABS: HEMATOCRIT 42.3 % (42-52)
[2018-02-24 17:23] LABS: PT 14.1 SEC (9.4-12.5); PTT 35 SEC (25-37)
[2018-02-24 17:30] VITALS: BP 178/88
[2018-02-24 17:45] LABS: GRANULOCYTE % 85.9 % (42.2-75.2)
--- NOTE | 2018-02-24 17:53 | Event Note ---
Event Note Event Note: Around 5 PM a rapid response was called because of shortness breath and oxygen desaturation down to 54%. Vitals at that time were temperature 102, RR 40, BP 188/100, heart rate 120s. The patient was alert and oriented, complaining of shortness breath but denies any chest pain, palpitation, weakness or numbness. The patient's saturation improved up to 88% on non-breather mask. On physical exam he was alert and oriented X3 but lethargic, muscle strength 5/5 on upper extremity, no drifting or facial drop. CVS: tachycardic with a normal S1 and S2 without MRGs. Resp: Tachypneic up to 40 with decreased air entry and crackles at lung bases bilaterally. Bilateral lower extremity edema to above the knee level. Given that this patient presented with sepsis possibly secondary to UTI and/or acute on chronic osteomyelitis of the sacral ulcer, and given the groundglass appearance on the CTA yesterday there is a possibility of ARDS. The patient is also breathing at the respiratory rate 40 to maintain an suboptimal oxygenation, he still has a fever up to 102 on vancomycin and ceftazidime. I think the patient will need close monitoring in ICU not just for ARDS but also for mechanical ventilation if needed. Given lower extremity edema, crackles on physical exam, high blood pressure and more than 4 L infusion, it's likely that the patient had the pulmonary edema. Pulmonary embolism is unlikely given he had negative PE on CTA yesterday, however we will keep it low in the differential list. Plan * Transfer patient to ICU for close monitoring * Order BEP and magnesium, replete potassium is still low * Order phosphorus, given fast respiratory rate * Lactic acid and troponin given saturation 54% and recent sepsis and current temp of 102 * Stat chest x-ray, looking for pulmonary edema or signs of ARDS * CBCs looking for leukocytosis given high fever * The patient had lower extremity edema, crackles on exam, and blood pressure we will give 1 dose of IV Lasix 20 mg(he is Lasix naive) * We will inform ICU attending
[2018-02-24 18:00] VITALS: BP 140/70
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
[2018-02-25] VITALS (10 sets, daily range): BP systolic 98–186; BP diastolic 60–90
[2018-02-25 04:21] LABS: ABSOLUTE BASOPHIL COUNT 0 /CUMM (0.0-0.2); ABSOLUTE EOSINOPHIL COUNT 0 /CUMM (0.0-0.7); ABSOLUTE GRANULOCYTE CT 10.2 /CUMM (1.4-6.5); ABSOLUTE LYMPH COUNT 0.5 /CUMM (1.2-3.4); ABSOLUTE MONOCYTE COUNT 0.6 /CUMM (0.10-0.60); BASOPHIL % 0.1 % (0.0-2.0); EOSINOPHIL % 0 % (0-5); MEAN CORPUSCULAR HGB 28.3 PG (27.0-31.0); MEAN CORPUSCULAR VOLUME 85.6 FL (80.0-94.0); MEAN PLATELET VOLUME 8.8 FL (7.4-10.4); PLATELET COUNT 228 /CUMM (130-400); RBC DISTRIBUTION WIDTH 16.6 % (11.5-14.5); RED BLOOD CELL CT 3.95 /CUMM (4.70-6.10); WHITE BLOOD CELL COUNT 11.3 /CUMM (4.8-10.8)
[2018-02-25 04:28] LABS: HEMATOCRIT 33.8 % (42-52)
[2018-02-25 04:42] LABS: GRANULOCYTE % 90.5 % (42.2-75.2)
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
--- NOTE | 2018-02-25 08:18 | RADIOLOGY REPORT ---
XR PORTABLE CHEST CLINICAL INFORMATION: Respiratory failure. COMPARISON: Chest x-ray 02/24/2018. Chest CT 02/23/2018. TECHNIQUE: Portable frontal view of the chest was obtained. FINDINGS: Study remains limited. Low lung volumes. Worsening hazy opacity within the left upper and midlung. Possible retrocardiac opacity with assessment limited by technique. Similar opacities within the right midlung and at the right lung base. Cardiac silhouette and osseous structures are stable. IMPRESSION: Worsening hazy airspace opacity within the left upper lung and left midlung and possible new retrocardiac opacity with assessment limited by technique. Similar opacities within the right midlung and at the right lung base.
--- NOTE | 2018-02-25 09:35 | RADIOLOGY REPORT ---
EXAMINATION: XR ABDOMEN CLINICAL INDICATION: No bowel movements. Aggressively hydrated. COMPARISON: Abdominal CT 02/23/2018. TECHNIQUE: AP view of the abdomen. FINDINGS: Assessment is limited by patient body habitus and partial inclusion of the abdomen and pelvis on these films. Gaseous distention of the stomach and moderate volume intracolonic stool. No definite evidence of bowel obstruction. Nondiagnostic assessment for free air. Destructive changes of both hip joints and the bony pelvis are better demonstrated on the recent CT study. IMPRESSION: Assessment is limited by patient body habitus and partial inclusion of the abdomen and pelvis on these films. Moderate volume intracolonic stool and gaseous distention of the stomach. No definite bowel obstruction. Nondiagnostic assessment for free air secondary to technique. Destructive changes of both hip joints and the bony pelvis are better demonstrated on the recent CT study.
--- NOTE | 2018-02-25 11:38 | PN- Att Addend ---
Attending Addendum Attending Brief Note Events of last evening noted that came hypoxemic and his temperature went up he was transferred to the intensive care unit, now on high flow oxygen, still having high temperatures needing a cooling blanket his other vital signs are stable, but his tachycardic no other major changes. Patient was recultured will get ID input, my need a bone scan also surgical consultation to check that wound patient is critical at this time and monitored very closely. Intake & Output 02/25 1600 02/25 0400 02/24 1600 02/24 0400 02/23 1600 02/23 0400 Intake Total 622 283 2133 5000 4100 Output Total 535 3620 400 2800 2600 Balance 265 -2930 1000 2200 1500 Intake, IV 450 231 655 9677 Intake, Oral 800 788 724 8575 1100 Number 0 0 2 Bowel Movements Output, Urine 535 3620 400 2800 2600 Patient 233 lb 234 lb Weight Weight Reported by Patient Measurement Method Current Medications Sig/Cynthia Start time Last Medication Dose Route Stop Time Status Admin Acetaminophen 1,000 MG Q6P PRN 02/25 0545 02/25 N/A 1 UNIT IV 0910 Acetaminophen 650 MG .STK-MED ONE 02/25 0257 DC PO 02/25 0258 Acetaminophen 650 MG Q6P PRN 02/23 1000 AC 02/25 PO 0301 Albuterol Sulfate 3 ML Q6P PRN 02/24 1400 AC 02/24 INH 1402 Amlodipine Besylate 5 MG DAILY 02/24 09 DC 02/24 PO 0943 Ampicillin Sodium/ 1,500 MG ONCE ONE 02/24 1730 CAN Sulbactam Sodium IV 02/24 1759 Sodium Chloride 100 ML Bupropion HCl 150 MG DAILY 02/24 09 AC 02/25 PO 1012 Ceftazidime 1,000 MG IQ8 02/23 1600 AC 02/25 IV 0938 Duloxetine HCl 90 MG 1800 02/23 1800 AC 02/23 PO 1822 Enoxaparin Sodium 40 MG DAILY 02/24 0900 AC 02/25 SC 1037 Escitalopram Oxalate 20 MG DAILY 02/24 0900 AC 02/25 PO 1011 Furosemide 40 MG DAILY 02/25 1030 AC 02/25 IV 1028 Furosemide 20 MG DAILY 02/24 1728 DC 02/24 IV 1805 Furosemide 20 MG ONCE ONE 02/24 1700 DC 02/24 IV 02/24 1701 1651 Furosemide 40 MG .STK-MED ONE 02/24 1648 DC IV 02/24 1649 Gabapentin 300 MG Q6 02/23 1200 02/25 PO 0627 Hydromorphone HCl 0.2 MG ONCE PRN 02/23 1815 02/24 IV 0947 Insulin Aspart 0 TIDAC 02/23 1200 AC 02/24 SC 205 Insulin Detemir 10 UNITS BID 02/25 2100 AC MS Insulin Detemir 5 UNITS ONCE ONE 02/25 1030 DC 02/25 SC 02/25 1031 1038 Insulin Detemir 10 UNITS BID 02/24 0900 NE 02/24 SC 210 Ketorolac 30 MG ONCE ONE 02/25 1130 DC Tromethamine IV 02/25 1131 Magnesium Sulfate 1 GM ONCE ONE 02/24 1930 DC 02/24 Dextrose/Water 100 ML IV 02/24 2329 205 Metoprolol Tartrate 100 MG BID 02/23 2100 02/25 PO 1010 Omeprazole 40 MG DAILY AC 02/24 0700 02/25 PO 0628 Ondansetron HCl 4 MG ONCE ONE 02/24 1715 DC 02/24 IV 02/24 1716 1707 Oxycodone HCl 10 MG Q8 PRN 02/24 1345 02/25 PO 0627 Oxycodone HCl 5 MG Q8P PRN 02/23 0930 NE 02/24 PO 0442 Potassium Chloride 40 MEQ .STK-MED ONE 02/24 2045 DC PO 02/24 2046 Potassium Chloride 40 MEQ ONCE ONE 02/24 2015 DC 02/24 PO 02/24 2016 2154 Potassium Chloride 40 MEQ ONCE ONE 02/24 1830 NE 05 PO 02/24 1831 2154 Potassium Chloride 10 MEQ Q1H 02/24 1830 DC IV 02/24 1931 Potassium Chloride 10 MEQ Q1H 02/24 1700 NE 05 IV 02/24 1801 2158 Potassium Phosphate 15 mMol ONE ONE 02/25 0545 DC 02/25 Sodium Chloride 250 ML IV 02/25 0949 0628 Sodium Chloride 1,000 ML Q10H 02/23 1000 DC 05 IV 0407 Vancomycin HCl 1,500 MG Q12 02/23 2100 02/25 Sodium Chloride 250 ML IV 1003 Laboratory Tests 02/25/18 0345: Anion Gap 11, Estimated GFR > 60, Glucose 279 H, Calcium 8.0 L, Phosphorus 2.2 L, Magnesium 2.0, Total Bilirubin 0.8, AST 27, ALT 46, Albumin 2.7 L, CBC w Diff NO MAN DIFF REQ, RBC 3.95 L, MCV 85.6, MCH 28.3, MCHC 33.0, RDW 16.6 H, MPV 8.8, Gran % 90.5 H, Lymphocytes % 4.2 L, Monocytes % 5.2, Eosinophils % 0, Basophils % 0.1, Absolute Granulocytes 10.2 H, Absolute Lymphocytes 0.5 L, Absolute Monocytes 0.6, Absolute Eosinophils 0, Absolute Basophils 0 02/24/18 2241: Troponin I 0.32 *H 02/24/181928: Lactic Acid 1.7 02/24/181924: Lactic Acid 1.7 02/24/18 1659: pH 7.46 H, pCO2 33 L, pO2 69 L, HCO3 23, ABG O2 Sat (Measured) 94.0 L, Carboxyhemoglobin 1.5, O2 Concentration % 100, O2 Delivery Method NRB, Phlebotomy Draw Site RIGHT RADIAL 02/24/18 1656: Anion Gap 18 H, Estimated GFR > 60, BUN/Creatinine Ratio 14.3, Lactic Acid 4.3 H, Phosphorus 2.8, Magnesium 1.9, Troponin I 0.34 *H, [id number] Pept 1580 H, PT 14.1 H, INR 1.29 H, APTT 35, CBC w Diff NO MAN DIFF REQ, RBC 4.87, MCV 86.8, MCH 28.1, MCHC 32.4 L, RDW 16.6 H, MPV 8.6, Gran % 85.9 H, Lymphocytes % 12.7 L, Monocytes % 1.2 L, Eosinophils % 0.2, Basophils % 0, Absolute Granulocytes 6.8 H, Absolute Lymphocytes 1.0 L, Absolute Monocytes 0.1, Absolute Eosinophils 0, Absolute Basophils 0 02/24/18 1646: Troponin I Cancelled 02/24/18 0802: ESR Westergren 119 H 02/24/18 0802: Anion Gap 11, Estimated GFR > 60, BUN/Creatinine Ratio 18.0, Total Bilirubin 0.7 , Direct Bilirubin 0.2, AST 33, ALT 60, Alkaline Phosphatase 114, Total Protein 6.5, Albumin 2.8 L, CBC w Diff MAN DIFF ORDERED, RBC 4.13 L, MCV 85.4, MCH 28.5, MCHC 33.3, RDW 17.0 H, MPV 8.9, Gran % 88.8 H, Lymphocytes % 6.0 L, Monocytes % 5.2, Eosinophils % 0, Basophils % 0, Absolute Granulocytes 12.4 H, Absolute Lymphocytes 0.8 L, Absolute Monocytes 0.7 H, Absolute Eosinophils 0, Absolute Basophils 0, Platelet Estimate VERIFIED BY SMEAR, Polychromasia 1+, Anisocytosis 1+ 02/23/18 1009: Lactic Acid 2.1 02/23/18 0640: Urine Opiates Screen 299, Methadone Screen 68, Barbiturate Screen < 60, Ur Phencyclidine Scrn < 6.00, Amphetamines Screen 316, U Benzodiazepines Scrn < 85, Urine Cocaine Screen < 50, Urine Cannabis Screen < 5.00, Urinalysis HEAVY H, Urine Color YEL, Urine Clarity TURBD H, Urine pH 6.0, Ur Specific [place] >= 1.030, Urine Protein >=300 H, Urine Ketones NEG, Urine Nitrite POS H, Urine Bilirubin NEG, Urine Urobilinogen 1.0, Ur Leukocyte Esterase TRACE H, Ur Microscopic SEDIMENT EXAMINED, Urine RBC >75 H, Urine WBC 5-10 H, Urine Crystals 3+ UR AC H, Urine Bacteria PACKD H, Micro UA Comment B[place] YEAST H , Urine Hemoglobin LARGE H, Urine Glucose 250 H 02/23/18 0633: Lactic Acid 2.6 H 02/23/18 0633: Anion Gap 13, Estimated GFR > 60, BUN/Creatinine Ratio 16.7, Glucose 250 H, Calcium 8.8, Total Bilirubin 0.5, Direct Bilirubin 0.2, AST 64 H, ALT 98 H, Alkaline Phosphatase 141 H, Total Protein 8.0, Albumin 3.6, Amylase 31, Lipase 58, CBC w Diff NO MAN DIFF REQ, RBC 4.68 L, MCV 84.8, MCH 26.3 L, MCHC 31.0 L , RDW 16.5 H, MPV 8.3, Gran % 86.3 H, Lymphocytes % 7.5 L, Monocytes % 6.0, Eosinophils % 0.1, Basophils % 0.1, Absolute Granulocytes 10.9 H, Absolute Lymphocytes 0.9 L, Absolute Monocytes 0.8 H, Absolute Eosinophils 0, Absolute Basophils 0 Microbiology 02/25 1000 BLOOD: Blood Culture - RECD 02/25 0950 BLOOD: Blood Culture - RECD 02/25 0807 LOWER RESP: Respiratory Culture - ORD 02/25 0807 LOWER RESP: Gram Stain - ORD 02/24 1730 UPPER RESP: Surveillance Culture - RECD 02/24 1730 GI: Surveillance Culture - RECD 02/23 1245 BLOOD: Blood Culture - RES 02/23 1148 LOWER RESP: Respiratory Culture - CAN Cancelled: SPECIMEN NOT RECEIVED IN LABORATORY 02/23 1148 LOWER RESP: Gram Stain - CAN Cancelled: SPECIMEN NOT RECEIVED IN LABORATORY 02/23 0747 BLOOD: Blood Culture - RES 02/23 0653 BLOOD: Blood Culture - CAN Cancelled: Quantity not sufficient for both blood culture bottles. 02/23 0640 URINE ROUT: Urine Culture - RES GRAM NEGATIVE RODS ENTEROCOCCUS ALPHA STREP Microbiology 02/25 1000 BLOOD: Blood Culture - RECD 02/25 0950 BLOOD: Blood Culture - RECD 02/25 0807 LOWER RESP: Respiratory Culture - ORD 02/25 0807 LOWER RESP: Gram Stain - ORD 02/24 1730 UPPER RESP: Surveillance Culture - RECD 02/24 1730 GI: Surveillance Culture - RECD 02/23 1245 BLOOD: Blood Culture - RES 02/23 1148 LOWER RESP: Respiratory Culture - CAN Cancelled: SPECIMEN NOT RECEIVED IN LABORATORY 02/23 1148 LOWER RESP: Gram Stain - CAN Cancelled: SPECIMEN NOT RECEIVED IN LABORATORY 02/23 0747 BLOOD: Blood Culture - RES 02/23 0653 BLOOD: Blood Culture - CAN Cancelled: Quantity not sufficient for both blood culture bottles. 02/23 0640 URINE ROUT: Urine Culture - RES GRAM NEGATIVE RODS ENTEROCOCCUS ALPHA STREP Vital Signs Date Time Temp Pulse Resp B/P B/P Pulse O2 O2 Flow FiO2 Mean Ox Delivery Rate 02/25 1010 104.3 02/25 1010 150 188/76 02/25 1000 104.7 150 30 186/88 02/25 0910 103.0 02/25 0853 96 Nasal 55% Cannula 02/25 08 99.8 112 22 150/90 02/25 0800 99.8 112 22 150/90 96 Nasal 65% Cannula 02/25 08 96 Nasal 65% Cannula 02/25 06 99.5 109 22 143/72 02/25 0400 102.2 02/25 0400 102.2 110 26 154/84 02/25 0400 95 Nasal 65% Cannula 02/25 0301 102.0 02/25 0200 93 24 139/60 02/25 0051 96 Nasal 65% Cannula 02/25 0000 100.0 90 24 134/84 05 0000 95 Nasal 65% Cannula 02/25 0000 100.0 90 24 134/84 95 Nasal 65% Cannula 02/24 2101 111 25 150/64 02/24 1819 96 Nasal 80% Cannula 02/24 1800 98.9 120 30 140/70 02/24 1800 98.9 120 30 140/70 96 Nasal 80% Cannula 02/24 1739 102.0 02/24 1730 90 Non 100% ReBreather 02/24 1730 100.9 122 36 178/88 90 Non 100% ReBreather 02/24 1644 102.0 126 32 190/92 64 Nasal 3.0L Cannula 02/24 1600 88 Nasal 3.0L Cannula 02/24 1408 101.0 108 22 140/90 88 / 1146 Nasal 3.0L Cannula The elevated troponin may be demand ischemia. First blood cultures negative after 24 hours second blood cultures are pending.
--- NOTE | 2018-02-25 15:24 | RADIOLOGY REPORT ---
EXAMINATION: XR PORTABLE CHEST CLINICAL INFORMATION: Central catheter placement. COMPARISON: Chest x-ray 02/25/2018 TECHNIQUE: Portable frontal view of the chest was obtained. 2:33 PM FINDINGS: Right IJ catheter tip in the superior vena cava. The catheter tip is about the level the shane, approximately 3 cm above the caval atrial junction. No pneumothorax. No pleural effusion. Cardiomediastinal contours remain unchanged. There is linear atelectasis at the left lung base. There is no infiltrate. IMPRESSION: Right IJ catheter tip in superior vena cava. No pneumothorax.
--- NOTE | 2018-02-25 15:47 | PN- Infect Dx ---
Subjective Subjective: T-max 104.7. He was moved to the ICU last evening because of the development of shortness of breath and desaturation to 50%, with his blood pressure 188/100 and heart rate in the 120s. He was given Lasix for presumed pulmonary edema based on his chest x-ray. He has remained febrile overnight. His blood pressure did decrease this afternoon to 72 over palp after another dose of Lasix, but has increased somewhat. Presently he does not offer any complaints. Objective Last 24 Hrs of Vital Signs/I&O Vital Signs Date Time Temp Pulse Resp B/P B/P Pulse O2 O2 Flow FiO2 Mean Ox Delivery Rate 02/25 1440 94 Nasal 55% Cannula 02/25 1400 100.2 109 30 98/63 02/25 1345 108 72/0 02/25 1230 94 Nasal 55% Cannula 02/25 1200 102.4 100 26 130/70 02/25 1010 104.3 02/25 1010 150 188/76 02/25 1000 104.7 150 30 186/88 02/25 0910 103.0 02/25 0853 96 Nasal 55% Cannula 02/25 0800 99.8 112 22 150/90 02/25 0800 99.8 112 22 150/90 96 Nasal 65% Cannula 02/25 0800 96 Nasal 65% Cannula 02/25 0600 99.5 109 22 143/72 02/25 0400 102.2 02/25 0400 102.2 110 26 154/84 02/25 0400 95 Nasal 65% Cannula 02/25 0301 102.0 02/25 0200 93 24 139/60 02/25 0051 96 Nasal 65% Cannula 02/25 0000 100.0 90 24 134/84 02/25 0000 95 Nasal 65% Cannula 02/25 0000 100.0 90 24 134/84 95 Nasal 65% Cannula 02/24 2101 111 25 150/64 02/24 1819 96 Nasal 80% Cannula 02/24 1800 98.9 120 30 140/70 05 1800 98.9 120 30 140/70 96 Nasal 80% Cannula 02/24 1739 102.0 02/24 1730 90 Non 100% ReBreather 02/24 1730 100.9 122 36 178/88 90 Non 100% ReBreather 02/24 1644 102.0 126 32 190/92 64 Nasal 3.0L Cannula 02/24 1600 88 Nasal 3.0L Cannula Intake & Output 02/25 1600 02/25 0800 02/25 0000 Intake Total 800 690 Output Total 535 3620 Balance 265 -2930 Intake, IV 450 Intake, Oral 800 240 Number 0 0 Bowel Movements Output, Urine 535 3620 Patient 233 lb Weight Physical Exam Other Physical Findings: He is awake and alert on high flow oxygen, appearing in no acute distress Neck right IJ triple lumen catheter in place Lungs are clear Heart regular rhythm with no murmur Abdomen is distended, mildly tender on palpation of the upper abdomen, with no guarding or rebound, positive bowel sounds; suprapubic catheter in place Back mild left CVA tenderness Extremities 1+ edema both lower extremities Results Last 24 Hours of Lab Results: Laboratory Tests 02/25 02/25 02/24 1515 0345 2241 Chemistry Sodium (137 - 145 mmol/L) 135 L Potassium (3.5 - 5.1 mmol/L) 3.6 Chloride (98 - 107 mmol/L) 100 Carbon Dioxide (22 - 30 mmol/L) 23 Anion Gap (5 - 16) 11 BUN (9 - 20 mg/dL) 11 Creatinine (0.7 - 1.2 mg/dL) 0.6 L Estimated GFR (>60 ml/min) > 60 Glucose (65 - 99 mg/dL) 279 H Calcium (8.4 - 10.2 mg/dL) 8.0 L Phosphorus (2.5 - 4.5 mg/dL) 2.2 L Magnesium (1.6 - 2.3 mg/dL) 2.0 Total Bilirubin (0.2 - 1.3 mg/dL) 0.8 AST (17 - 59 U/L) 27 ALT (21 - 72 U/L) 46 Troponin I (<0.11 ng/ml) Pending 0.32 *H Albumin (3.5 - 5.0 g/dL) 2.7 L Hematology CBC w Diff NO MAN DIFF REQ WBC (4.8 - 10.8 /CUMM) 11.3 H RBC (4.70 - 6.10 /CUMM) 3.95 L Hgb (14.0 - 18.0 G/DL) 11.2 L Hct (42 - 52 %) 33.8 L MCV (80.0 - 94.0 FL) 85.6 MCH (27.0 - 31.0 PG) 28.3 MCHC (33.0 - 37.0 G/DL) 33.0 RDW (11.5 - 14.5 %) 16.6 H Plt Count (130 - 400 /CUMM) 228 MPV (7.4 - 10.4 FL) 8.8 Gran % (42.2 - 75.2 %) 90.5 H Lymphocytes % (20.5 - 51.1 %) 4.2 L Monocytes % (1.7 - 9.3 %) 5.2 Eosinophils % (0 - 5 %) 0 Basophils % (0.0 - 2.0 %) 0.1 Absolute Granulocytes (1.4 - 6.5 /CUMM) 10.2 H Absolute Lymphocytes (1.2 - 3.4 /CUMM) 0.5 L Absolute Monocytes (0.10 - 0.60 /CUMM) 0.6 Absolute Eosinophils (0.0 - 0.7 /CUMM) 0 Absolute Basophils (0.0 - 0.2 /CUMM) 0 02/24 02/24 02/24 1929 1925 1659 Blood Gas pH (7.35 - 7.45 PH) 7.46 H pCO2 (35 - 45 TORR) 33 L pO2 (80 - 100 TORR) 69 L HCO3 (21 - 28 MEQ/L) 23 ABG O2 Sat (Measured) (>96.0 %) 94.0 L Carboxyhemoglobin (1.5 - 5.0 %) 1.5 O2 Concentration % 100 O2 Delivery Method NRB Chemistry Lactic Acid (0.7 - 2.1 mmol/L) 1.7 1.7 Miscellaneous Phlebotomy Draw Site RIGHT RADIAL 02/24 02/24 1656 1646 Chemistry Sodium (137 - 145 mmol/L) 141 Potassium (3.5 - 5.1 mmol/L) 3.3 L Chloride (98 - 107 mmol/L) 98 Carbon Dioxide (22 - 30 mmol/L) 25 Anion Gap (5 - 16) 18 H BUN (9 - 20 mg/dL) 10 Creatinine (0.7 - 1.2 mg/dL) 0.7 Estimated GFR (>60 ml/min) > 60 BUN/Creatinine Ratio (7 - 25 %) 14.3 Lactic Acid (0.7 - 2.1 mmol/L) 4.3 H Phosphorus (2.5 - 4.5 mg/dL) 2.8 Magnesium (1.6 - 2.3 mg/dL) 1.9 Troponin I (<0.11 ng/ml) 0.34 *H Cancelled [id number]-Dgkggbzgbzt Pept (<125 pg/mL) 1580 H Coagulation PT (9.4 - 12.5 SEC) 14.1 H INR (0.90 - 1.17) 1.29 H APTT (25 - 37 SEC) 35 Hematology CBC w Diff NO MAN DIFF REQ WBC (4.8 - 10.8 /CUMM) 7.9 RBC (4.70 - 6.10 /CUMM) 4.87 Hgb (14.0 - 18.0 G/DL) 13.7 L Hct (42 - 52 %) 42.3 MCV (80.0 - 94.0 FL) 86.8 MCH (27.0 - 31.0 PG) 28.1 MCHC (33.0 - 37.0 G/DL) 32.4 L RDW (11.5 - 14.5 %) 16.6 H Plt Count (130 - 400 /CUMM) 220 MPV (7.4 - 10.4 FL) 8.6 Gran % (42.2 - 75.2 %) 85.9 H Lymphocytes % (20.5 - 51.1 %) 12.7 L Monocytes % (1.7 - 9.3 %) 1.2 L Eosinophils % (0 - 5 %) 0.2 Basophils % (0.0 - 2.0 %) 0 Absolute Granulocytes (1.4 - 6.5 /CUMM) 6.8 H Absolute Lymphocytes (1.2 - 3.4 /CUMM) 1.0 L Absolute Monocytes (0.10 - 0.60 /CUMM) 0.1 Absolute Eosinophils (0.0 - 0.7 /CUMM) 0 Absolute Basophils (0.0 - 0.2 /CUMM) 0 Last 24 Hours of Fadi Results: Urine culture February 23 greater than 100,000 colonies of E. coli resistant to Ciprofloxacin, Enterococcus sensitive to Ampicillin and alpha strep Blood cultures February 23 negative Blood cultures February 25 pending Recent Imaging Studies: Chest x-ray February 25 reveals linear atelectasis at the left lung base, with no infiltrate Abdominal x-ray February 25 reveals a moderate volume of stool in the colon with gaseous distention of the stomach but with no definite bowel obstruction Assessment/Plan ID Impression: Recurrent fevers, with white blood cell count decreased from yesterday morning, with no bands, on Vancomycin and Ceftazidime, Day 3 of treatment for possible sepsis of urologic origin, with left flank tenderness and a positive urine culture for E. coli, Enterococcus and alpha strep though, with a suprapubic catheter in place, a positive urine culture is difficult to interpret. He has no other obvious focus of infection with his recent chest x-ray negative, though the recent CTA of the chest did reveal new groundglass opacities, which could be secondary to aspiration pneumonia. The CT scan of the pelvis did suggest the possibility of an acute, superimposed on chronic, osteomyelitis of the sacrum but doubt that this is the source of his recent fever. Noninfectious causes of fever, such as drug fever, though he has no rash or eosinophils, or left renal or splenic infarct, given his left flank pain, are possible but seem less likely. Suggestion: 1. Repeat urine culture 2. Further management of presumed fluid overload per ICU team 3. Could pursue bone scan at some point to rule out sacral osteomyelitis 4. Discontinue Vancomycin and Ceftazidime 5. Begin Unasyn 3 g IV every 6 hours
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
--- NOTE | 2018-02-25 18:46 | Proc Note Internal Medicine ---
Medicine Procedure Procedure Date: 02/25/18 Medical Procedure(s): central venous cath place Pre-Operative Diagnosis: hypotension/sepsis Post-Operative Diagnosis: hypotension/sepsis Estimated Blood Loss: scant Anesthesia: 1% lidocaine without epinephrine, 2cc Procedure Findings: A time-out was completed verifying correct patient, procedure, site, and positioning. The patient was placed in a dependent position appropriate for central line placement . The patients right neck was prepped and draped in sterile fashion. 1% Lidocaine was used to anesthetize the surrounding skin area. A triple lumen catheter was introduced into the the internal jugular vein using the Seldinger technique under ultrasound guidance. The catheter was threaded smoothly over the guide wire and appropriate blood return was obtained on the second attempt. Each lumen of the catheter was evacuated of air and flushed with sterile saline. The catheter was then sutured in place to the skin and a sterile dressing applied. Perfusion to the extremity distal to the point of catheter insertion was checked and found to be adequate. Resident was present for the entire procedure. A STAT chest x-ray was ordered to confirm appropriate placement.
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
[2018-02-26] VITALS (11 sets, daily range): BP systolic 96–142; BP diastolic 53–82
[2018-02-26 05:24] LABS: ABSOLUTE BASOPHIL COUNT 0 /CUMM (0.0-0.2); ABSOLUTE EOSINOPHIL COUNT 0 /CUMM (0.0-0.7); ABSOLUTE GRANULOCYTE CT 6.1 /CUMM (1.4-6.5); ABSOLUTE LYMPH COUNT 0.2 /CUMM (1.2-3.4); ABSOLUTE MONOCYTE COUNT 0.1 /CUMM (0.10-0.60); BASOPHIL % 0 % (0.0-2.0); EOSINOPHIL % 0.4 % (0-5); GRANULOCYTE % 95.7 % (42.2-75.2); HEMATOCRIT 30.5 % (42-52); MEAN CORPUSCULAR HGB CONC 32.4 G/DL (33.0-37.0); MEAN CORPUSCULAR VOLUME 86.5 FL (80.0-94.0); MEAN PLATELET VOLUME 9.2 FL (7.4-10.4); PLATELET COUNT 170 /CUMM (130-400); RED BLOOD CELL CT 3.53 /CUMM (4.70-6.10); WHITE BLOOD CELL COUNT 6.4 /CUMM (4.8-10.8)
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
--- NOTE | 2018-02-26 10:26 | ECHOCARDIOGRAM REPORT ---
PEDRO NGUYỄN Age: 47 : 1970 Gender: M Exam Date: 02/25/2018 15:26 Exam Location: [facility] Ht (in): 67 Wt (lb): 234 BSA: 2.28 BP: 98 / 63 Ordering Physician: Jakub Kay MD Referring Physician: Waqar Metzger MD Technologist: Sarah Alvarez RDCS Room Number: 110 Indications: RESPIRATORY FAILURE Rhythm: Sinus Technical Quality: fair FINDINGS Left Ventricle Normal left ventricular size with mild left ventricular hypertrophy. Moderately decreased systolic function with severe posterior wall hypokinesis. Normal left ventricular diastolic filling pattern for age. The ejection fraction is visually estimated at 25-30%. Right Ventricle The right ventricle is normal in size and function. Right Atrium The right atrium is normal in size. Left Atrium The left atrium is normal in size. The interatrial septum is intact. Mitral Valve The mitral valve is normal in structure and function. There is trace mitral regurgitation. Aortic Valve Structurally normal aortic valve without significant sclerosis or stenosis. There is no aortic regurgitation. Tricuspid Valve The tricuspid valve is normal in structure and function. There is no tricuspid regurgitation. Pulmonic Valve Structurally normal pulmonic valve. There is no pulmonic regurgitation. Pericardium Normal pericardium without effusion. No pleural effusion. Great Vessels Normal aortic root dimension. The aortic arch and great vessels are well seen and are normal. CONCLUSIONS 1. Abnormal EF of 25-30% with posterior wall hypokinesis. 2. Mild left ventricular hypertrophy. 3. Trace mitral regurgitation. Filippo Lewis M.D. (Electronically Signed) Final Date: 26 Feb 2018 10:25 MEASUREMENTS (Male / Female) Normal Values 2D ECHO LV Diastolic Diameter PLAX 4.2 cm 4.2 - 5.9 / 3.9 - 5.3 cm LV Systolic Diameter PLAX 3.7 cm 2.1 - 4.0 cm LV Fractional Shortening PLAX 11.9 % 25 - 46 % LV Ejection Fraction 2D Teich 26.0 % IVS Diastolic Thickness 1.3 cm LVPW Diastolic Thickness 1.3 cm LV Relative Wall Thickness 0.6 RV Internal Dim ED PLAX 3.2 cm 1.9 - 3.8 cm LVOT Diameter 2.1 cm Aortic Root Diameter 2.9 cm LA Systolic Diameter LX 3.5 cm 3.0 - 4.0 / 2.7 - 3.8 cm LA Volume 41.0 cm 18 - 58 / 22 - 52 cm Ascending Aorta Diameter 3.1 cm DOPPLER AV Peak Velocity 144.0 cm/s AV Peak Gradient 8.3 mmHg AV Mean Velocity 97.6 cm/s AV Mean Gradient 4.0 mmHg AV Velocity Time Integral 26.3 cm LVOT Peak Velocity 108.0 cm/s LVOT Peak Gradient 4.7 mmHg LVOT Mean Velocity 69.7 cm/s LVOT Mean Gradient 2.0 mmHg LVOT Velocity Time Integral 16.9 cm LVOT Stroke Volume 58.5 cm AV Area Cont Eq vti 2.2 cm AV Area Cont Eq pk 2.6 cm MV Peak Velocity 120.0 cm/s MV Peak Gradient 5.8 mmHg MV Mean Velocity 75.3 cm/s MV Mean Gradient 3.0 mmHg Mitral E Point Velocity 80.9 cm/s Mitral A Point Velocity 101.0 cm/s Mitral E to A Ratio 0.8 MV PHT Velocity 121.0 cm/s MV Deceleration [place] 393.0 cm/s MV Pressure Half Time 92.4 ms MV Area PHT 2.4 cm MV Deceleration Time 169.0 ms TR Peak Velocity 224.0 cm/s TR Peak Gradient 20.1 mmHg Right Atrial Pressure 10.0 mmHg Pulmonary Artery Systolic Pressu 30.1 mmHg Right Ventricular Systolic Press 30.1 mmHg PV Peak Velocity 86.8 cm/s PV Peak Gradient 3.0 mmHg PV Mean Velocity 61.9 cm/s PV Mean Gradient 2.0 mmHg PV Velocity Time Integral 16.5 cm LV E' Lateral Velocity 8.9 cm/s Mitral E to LV E' Lateral Ratio 9.1 LV E' Septal Velocity 6.6 cm/s Mitral E to LV E' Septal Ratio 12.2
--- NOTE | 2018-02-26 10:45 | PN- Att Addend ---
Attending Addendum Attending Brief Note Patient doing a little better today, no events overnight. Temp max 102.3, other vital signs are stable, pulse 110, no new changes on physical. Appreciate infectious diseases and vessel scrapper's input and recommendations. We'll continue antibiotic therapy continue monitoring labs closely continue observation in ICU. Intake & Output 02/26 1600 02/26 0400 02/25 1600 02/25 0400 02/24 1600 02/24 0400 Intake Total 1125 1370 2890 690 1400 5000 Output Total 810 1190 2535 3620 400 2800 Balance 315 180 355 -2930 1000 2200 Intake, IV 020 080 1144 450 800 400 Intake, Oral 196 276 9505 [phone] Number 1 0 0 0 Bowel Movements Output, Urine 810 1190 2535 3620 400 2800 Patient 233 lb Weight Current Medications Sig/Cynthia Start time Last Medication Dose Route Stop Time Status Admin Acetaminophen 1,000 MG Q6P PRN 02/25 0545 AC 02/26 N/A 1 UNIT IV 0319 Acetaminophen 650 MG Q6P PRN 02/23 1000 AC 02/25 PO 0301 Albuterol Sulfate 3 ML Q6P PRN 02/24 1400 AC 02/24 INH 1402 Amlodipine Besylate 5 MG DAILY 02/24 0900 DC 02/24 PO 0943 Ampicillin Sodium/ 3,000 MG Q6 02/25 1800 AC 02/26 Sulbactam Sodium IV 0637 Sodium Chloride 100 ML Bupropion HCl 150 MG DAILY 02/24 0900 AC 02/26 PO 0836 Ceftazidime 1,000 MG IQ8 02/23 1600 DC 02/25 IV 1607 Docusate Sodium 100 MG DAILY 02/25 1438 AC 02/26 PO 0836 Duloxetine HCl 90 MG 1800 02/23 1800 AC 02/25 PO 1703 Enoxaparin Sodium 40 MG DAILY 02/24 0900 AC 02/26 SC 1033 Escitalopram Oxalate 20 MG DAILY 02/24 0900 AC 02/26 PO 0836 Furosemide 40 MG DAILY 02/25 1030 DC 02/25 IV 1028 Gabapentin 300 MG Q6 02/23 1200 AC 02/26 PO 0639 Hydromorphone HCl 0.2 MG ONCE PRN 02/23 1815 AC 02/24 IV 0947 Insulin Aspart 0 TIDAC 02/23 1200 AC 02/26 SC 0820 Insulin Detemir 10 UNITS BID 02/25 2100 AC 02/26 SC 1033 Ketorolac 30 MG ONCE ONE 02/25 1130 DC 02/25 Tromethamine IV 02/25 1131 1159 Magnesium Oxide 400 MG ONE ONE 02/26 0800 DC 02/26 PO 02/26 0801 0836 Magnesium Oxide 400 MG ONE ONE 02/25 1700 DC 02/25 PO 02/25 1701 1821 Metoprolol Tartrate 50 MG BID 02/26 1039 AC 02/26 PO 1041 Metoprolol Tartrate 100 MG BID 02/23 2100 DC 02/25 PO 1010 Norepinephrine 4 MG .STK-MED ONE 02/25 1506 DC IV 02/25 1507 Norepinephrine 4 MG Q13H 02/25 1415 AC 02/25 Sodium Chloride 250 ML IV 1345 Norepinephrine 4 MG .STK-MED ONE 02/25 1336 DC IV 02/25 1337 Omeprazole 40 MG DAILY AC 02/24 0700 02/26 PO 0639 Oxycodone HCl 10 MG .STK-MED ONE 02/26 0045 DC PO 02/26 0046 Oxycodone HCl 10 MG .STK-MED ONE 02/25 1546 DC PO 02/25 1547 Oxycodone HCl 10 MG Q8 PRN 02/24 1345 AC 02/26 PO 0837 Phosphate 250 MG PC AND AT BEDTIME 02/25 1700 02/26 PO 0828 Phytonadione 10 MG ONCE ONE 02/25 1430 VA 02/25 SC 02/25 1431 1607 Polyethylene Glycol 17 GM DAILY 02/25 1438 02/26 PO 0837 Potassium Chloride 40 MEQ BID 02/25 1700 DC 02/25 PO 02/25 2101 2145 Senna 187 MG AT BEDTIME 02/25 2100 02/25 PO 2145 Sodium Chloride 250 ML BOLUS ONE 02/25 1600 DC 02/25 IV 02/25 1659 1330 Sodium Chloride 250 ML .Q1H 02/25 1530 DC IV 02/25 1929 Sodium Chloride 250 ML BOLUS ONE 02/25 1315 DC 02/25 IV 02/25 1414 1305 Vancomycin HCl 1,500 MG Q12 02/23 2100 VA 02/25 Sodium Chloride 250 ML IV 1003 Vitamin A/Vitamin D 1 GEOVANNY DAILY 02/26 0900 02/26 TOP 1033 Laboratory Tests 02/26/18 0430: Anion Gap 10, Estimated GFR > 60, Glucose 284 H, Calcium 7.7 L, Phosphorus 1.8 L, Magnesium 1.8, Total Bilirubin 0.7, AST 63 H, ALT 54, Albumin 2.3 L, CBC w Diff MAN DIFF ORDERED, RBC 3.53 L, MCV 86.5, MCH 28.0, MCHC 32.4 L, RDW 17.0 H, MPV 9.2, Gran % 95.7 H, Lymphocytes % 2.7 L, Monocytes % 1.2 L, Eosinophils % 0.4, Basophils % 0, Absolute Granulocytes 6.1, Segmented Neutrophils 81 H, Band Neutrophils 14 H, Absolute Lymphocytes 0.2 L, Lymphocytes 5 L, Absolute Monocytes 0.1, Absolute Eosinophils 0, Absolute Basophils 0, Platelet Estimate ADEQUATE, Polychromasia 1+, Hypochromic- Microcytic 1+, Poikilocytosis 1+, Ovalocytes 1+, [place] Cells FEW, Fld Total RBCs Counted 100 02/25/18 1515: Anion Gap 11, Estimated GFR > 60, Glucose 253 H, Calcium 7.5 L, Phosphorus 1.9 L, Magnesium 1.8, Total Bilirubin 0.9, AST 61 H, ALT 52, Troponin I 0.23 *H, Albumin 2.4 L 02/25/18 1000: Sodium Cancelled, Potassium Cancelled, Chloride Cancelled, Carbon Dioxide Cancelled, Anion Gap Cancelled, BUN Cancelled, Creatinine Cancelled, Glucose Cancelled, Calcium Cancelled, Phosphorus Cancelled, Magnesium Cancelled, Total Bilirubin Cancelled, AST Cancelled, ALT Cancelled, Albumin Cancelled 02/25/18 0345: Anion Gap 11, Estimated GFR > 60, Glucose 279 H, Calcium 8.0 L, Phosphorus 2.2 L, Magnesium 2.0, Total Bilirubin 0.8, AST 27, ALT 46, Albumin 2.7 L, CBC w Diff NO MAN DIFF REQ, RBC 3.95 L, MCV 85.6, MCH 28.3, MCHC 33.0, RDW 16.6 H, MPV 8.8, Gran % 90.5 H, Lymphocytes % 4.2 L, Monocytes % 5.2, Eosinophils % 0, Basophils % 0.1, Absolute Granulocytes 10.2 H, Absolute Lymphocytes 0.5 L, Absolute Monocytes 0.6, Absolute Eosinophils 0, Absolute Basophils 0 02/24/18 2241: Troponin I 0.32 *H 02/24/18 1929: Lactic Acid 1.7 02/24/18 192: Lactic Acid 1.7 02/24/18 1659: pH 7.46 H, pCO2 33 L, pO2 69 L, HCO3 23, ABG O2 Sat (Measured) 94.0 L, Carboxyhemoglobin 1.5, O2 Concentration % 100, O2 Delivery Method NRB, Phlebotomy Draw Site RIGHT RADIAL 02/24/18 1656: Anion Gap 18 H, Estimated GFR > 60, BUN/Creatinine Ratio 14.3, Lactic Acid 4.3 H, Phosphorus 2.8, Magnesium 1.9, Troponin I 0.34 *H, Ytw-V-Rdgsbucblme Pept 1580 H, PT 14.1 H, INR 1.29 H, APTT 35, CBC w Diff NO MAN DIFF REQ, RBC 4.87, MCV 86.8, MCH 28.1, MCHC 32.4 L, RDW 16.6 H, MPV 8.6, Gran % 85.9 H, Lymphocytes % 12.7 L, Monocytes % 1.2 L, Eosinophils % 0.2, Basophils % 0, Absolute Granulocytes 6.8 H, Absolute Lymphocytes 1.0 L, Absolute Monocytes 0.1, Absolute Eosinophils 0, Absolute Basophils 0 02/24/18 1646: Troponin I Cancelled 02/24/18 0802: ESR Westergren 119 H 02/24/18 0802: Anion Gap 11, Estimated GFR > 60, BUN/Creatinine Ratio 18.0, Total Bilirubin 0.7 , Direct Bilirubin 0.2, AST 33, ALT 60, Alkaline Phosphatase 114, Total Protein 6.5, Albumin 2.8 L, CBC w Diff MAN DIFF ORDERED, RBC 4.13 L, MCV 85.4, MCH 28.5, MCHC 33.3, RDW 17.0 H, MPV 8.9, Gran % 88.8 H, Lymphocytes % 6.0 L, Monocytes % 5.2, Eosinophils % 0, Basophils % 0, Absolute Granulocytes 12.4 H, Absolute Lymphocytes 0.8 L, Absolute Monocytes 0.7 H, Absolute Eosinophils 0, Absolute Basophils 0, Platelet Estimate VERIFIED BY SMEAR, Polychromasia 1+, Anisocytosis 1+ Microbiology 02/25 1530 URINE ROUT: Urine Culture - RES 02/25 1000 BLOOD: Blood Culture - RECD 02/25 0950 BLOOD: Blood Culture - RECD 02/25 0807 LOWER RESP: Respiratory Culture - COLB 02/25 0807 LOWER RESP: Gram Stain - COLB 02/24 1730 UPPER RESP: Surveillance Culture - RECD 02/24 1730 GI: Surveillance Culture - RECD 02/23 1245 BLOOD: Blood Culture - RES 02/23 1148 LOWER RESP: Respiratory Culture - CAN Cancelled: SPECIMEN NOT RECEIVED IN LABORATORY 02/23 1148 LOWER RESP: Gram Stain - CAN Cancelled: SPECIMEN NOT RECEIVED IN LABORATORY Microbiology 02/25 1530 URINE ROUT: Urine Culture - RES 02/25 1000 BLOOD: Blood Culture - RECD 02/25 0950 BLOOD: Blood Culture - RECD 02/25 0807 LOWER RESP: Respiratory Culture - COLB 02/25 0807 LOWER RESP: Gram Stain - COLB 02/24 1730 UPPER RESP: Surveillance Culture - RECD 02/24 1730 GI: Surveillance Culture - RECD 02/23 1245 BLOOD: Blood Culture - RES 02/23 1148 LOWER RESP: Respiratory Culture - CAN Cancelled: SPECIMEN NOT RECEIVED IN LABORATORY 02/23 1148 LOWER RESP: Gram Stain - CAN Cancelled: SPECIMEN NOT RECEIVED IN LABORATORY Vital Signs Date Time Temp Pulse Resp B/P B/P Pulse O2 O2 Flow FiO2 Mean Ox Delivery Rate 02/26 1041 113 114/54 02/26 1040 97 Nasal 45% Cannula 02/26 0800 97.9 112 22 110/56 05/ 0800 97.9 112 22 110/56 96 Nasal 55% Cannula 02/26 0800 96 Nasal 55% Cannula 02/26 0600 99.5 116 20 118/54 / 0400 102.3 139 26 100/60 / 0400 96 Nasal 55% Cannula 02/26 0319 103.0 / 0200 100.0 118 22 109/64 05/ 0135 94 Nasal 55% Cannula 05 0000 99.0 109 21 130/60 05/18 0000 99.0 109 21 130/60 94 Nasal 55% Cannula 02/26 0000 94 Nasal 55% Cannula 02/25 2315 95 Nasal 55% Cannula 02/25 2310 97 Nasal 55% Cannula 02/25 2200 98.5 103 20 118/70 02/25 2146 98 20 118/66 02/25 1822 99.6 02/25 1703 101.0 02/25 1600 101.0 112 20 118/70 94 Nasal 55% Cannula 02/25 1600 94 Nasal 55% Cannula 02/25 1440 94 Nasal 55% Cannula 02/25 1400 100.2 109 30 98/63 02/25 1345 108 72/0 02/25 1230 94 Nasal 55% Cannula 02/25 1200 102.4 100 26 130/70 02/25 1200 94 Nasal 55% Cannula White count is down. Last urine culture is negative after 1 day, last blood cultures are pending.
--- NOTE | 2018-02-26 10:58 | PN- Infect Dx ---
Subjective Subjective: T-max 104.7, with temperatures down this morning. His blood pressure has improved, and he is now off pressors. He notes decreased left flank pain and offers no other complaints at this time. Objective Last 24 Hrs of Vital Signs/I&O Vital Signs Date Time Temp Pulse Resp B/P B/P Pulse O2 O2 Flow FiO2 Mean Ox Delivery Rate 02/26 1041 113 114/54 02/26 1040 97 Nasal 45% Cannula 02/26 0800 97.9 112 22 110/56 02/26 0800 97.9 112 22 110/56 96 Nasal 55% Cannula 02/26 0800 96 Nasal 55% Cannula 02/26 0600 99.5 116 20 118/54 02/26 0400 102.3 139 26 100/60 02/26 0400 96 Nasal 55% Cannula 02/26 0319 103.0 02/26 0200 100.0 118 22 109/64 02/26 0135 94 Nasal 55% Cannula 02/26 0000 99.0 109 21 130/60 02/26 0000 99.0 109 21 130/60 94 Nasal 55% Cannula 02/26 0000 94 Nasal 55% Cannula 02/25 2315 95 Nasal 55% Cannula 02/25 2310 97 Nasal 55% Cannula 02/25 2200 98.5 103 20 118/70 02/25 2146 98 20 118/66 02/25 1822 99.6 02/25 1703 101.0 02/25 1600 101.0 112 20 118/70 94 Nasal 55% Cannula 02/25 1600 94 Nasal 55% Cannula 02/25 1440 94 Nasal 55% Cannula 02/25 1400 100.2 109 30 98/63 02/25 1345 108 72/0 02/25 1230 94 Nasal 55% Cannula 02/25 1200 102.4 100 26 130/70 02/25 1200 94 Nasal 55% Cannula Intake & Output 02/26 1600 02/26 0800 02/26 0000 Intake Total 1125 1370 Output Total 810 1190 Balance 315 180 Intake, IV 325 610 Intake, Oral 800 760 Number 1 0 Bowel Movements Output, Urine 810 1190 Physical Exam Other Physical Findings: He appears comfortable in no acute distress on 55% high flow oxygen Neck right IJ triple lumen catheter with no inflammation at the site Lungs are clear Heart regular rhythm with no murmur Abdomen is distended, tender on palpation of the right upper quadrant, with no guarding or rebound, positive bowel sounds; suprapubic catheter in place Back mild/decreased left CVA tenderness; Grade 4 hemorrhoids; sacral decubitus without surrounding inflammation Extremities trace edema both lower extremities Results Last 24 Hours of Lab Results: Laboratory Tests 02/26 02/25 0430 1515 Chemistry Sodium (137 - 145 mmol/L) 137 135 L Potassium (3.5 - 5.1 mmol/L) 3.5 3.0 L Chloride (98 - 107 mmol/L) 101 99 Carbon Dioxide (22 - 30 mmol/L) 25 25 Anion Gap (5 - 16) 10 11 BUN (9 - 20 mg/dL) 16 15 Creatinine (0.7 - 1.2 mg/dL) 0.7 0.8 Estimated GFR (>60 ml/min) > 60 > 60 Glucose (65 - 99 mg/dL) 284 H 253 H Calcium (8.4 - 10.2 mg/dL) 7.7 L 7.5 L Phosphorus (2.5 - 4.5 mg/dL) 1.8 L 1.9 L Magnesium (1.6 - 2.3 mg/dL) 1.8 1.8 Total Bilirubin (0.2 - 1.3 mg/dL) 0.7 0.9 AST (17 - 59 U/L) 63 H 61 H ALT (21 - 72 U/L) 54 52 Troponin I (<0.11 ng/ml) 0.23 *H Albumin (3.5 - 5.0 g/dL) 2.3 L 2.4 L Hematology CBC w Diff MAN DIFF ORDERED WBC (4.8 - 10.8 /CUMM) 6.4 RBC (4.70 - 6.10 /CUMM) 3.53 L Hgb (14.0 - 18.0 G/DL) 9.9 L Hct (42 - 52 %) 30.5 L MCV (80.0 - 94.0 FL) 86.5 MCH (27.0 - 31.0 PG) 28.0 MCHC (33.0 - 37.0 G/DL) 32.4 L RDW (11.5 - 14.5 %) 17.0 H Plt Count (130 - 400 /CUMM) 170 MPV (7.4 - 10.4 FL) 9.2 Gran % (42.2 - 75.2 %) 95.7 H Lymphocytes % (20.5 - 51.1 %) 2.7 L Monocytes % (1.7 - 9.3 %) 1.2 L Eosinophils % (0 - 5 %) 0.4 Basophils % (0.0 - 2.0 %) 0 Absolute Granulocytes (1.4 - 6.5 /CUMM) 6.1 Segmented Neutrophils (42.2 - 75.2 %) 81 H Band Neutrophils (0.0 - 5.0 %) 14 H Absolute Lymphocytes (1.2 - 3.4 /CUMM) 0.2 L Lymphocytes (20.5 - 51.1 %) 5 L Absolute Monocytes (0.10 - 0.60 /CUMM) 0.1 Absolute Eosinophils (0.0 - 0.7 /CUMM) 0 Absolute Basophils (0.0 - 0.2 /CUMM) 0 Platelet Estimate (ADEQUATE) ADEQUATE Polychromasia 1+ Hypochromic-Microcytic 1+ Poikilocytosis 1+ Ovalocytes 1+ [place] Cells FEW Other Body Source Fld Total RBCs Counted (%) 100 Last 24 Hours of Fadi Results: Blood cultures February 23 remain negative Blood cultures February 25 negative Urine culture February 25 negative Assessment/Plan ID Impression: Persistent fevers, though perhaps lower grade, with white blood cell count decreased, though with increased bands today, now on Unasyn, Day 4 of treatment for possible sepsis of urologic origin, with left flank tenderness and a positive urine culture for E. coli, Enterococcus and alpha strep though, with a suprapubic catheter in place, the positive urine culture is difficult to interpret. He has no other obvious focus of infection with his recent chest x- ray negative, though the recent CTA of the chest did reveal new groundglass opacities, which could be secondary to aspiration pneumonia. He does have right upper quadrant tenderness, but his recent right upper quadrant ultrasound revealed no findings of acute cholecystitis or dilated ducts, and his liver enzymes are essentially normal. The CT scan of the pelvis did suggest the possibility of an acute, superimposed on chronic, osteomyelitis of the sacrum but doubt that this is the source of his recent fevers. Suggestion: 1. Follow-up recent cultures 2. Consider bone scan to rule out sacral osteomyelitis once he has stabilized 3. Continue Unasyn
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
--- NOTE | 2018-02-26 15:03 | RADIOLOGY REPORT ---
EXAMINATION: XR PORTABLE CHEST CLINICAL INFORMATION: Rales COMPARISON: 02/25/2018 TECHNIQUE: Portable frontal view of the chest was obtained. FINDINGS: The lungs are hypoinflated. There is central vascular congestion and mild interstitial edema with probable left pleural effusion. IMPRESSION: Mild CHF. The lungs are hypoinflated, limiting assessment.
--- NOTE | 2018-02-26 15:54 | NUCLEAR MEDICINE REPORT ---
EXAMINATION: NM BONE SCAN 3 PHASE CLINICAL INFORMATION: Sepsis. Sacral ulcer, Suspected osteomyelitis of sacrum/hip. COMPARISON: The previous study dated 05/01/2017 is available for comparison. TECHNIQUE: Initial rapid sequence images were obtained over the pelvis and hips in the anterior and posterior projections during the bolus injection of 36.4 mCi Tc-99m HDP. Because of a deterioration in the patient's condition, the delayed static images could not be obtained. FINDINGS: Initial rapid sequence flow images show a focus of increased blood pool activity just to the left of the midline in the number sacral/coccygeal region. There is also mildly increased flow posteriorly in the right hip region. No other foci of abnormal flow are noted. The vascular flow in the iliac and proximal femoral vessels appears symmetrical bilaterally, and the visualized kidneys show bilaterally symmetrical flow. There is asymmetry of the blood pool images show increased blood pool activity in a pattern similar to the regions of increased flow in the lower parasacral region and right hip. Delayed static images could not be obtained. Blood pool images obtained immediately following the flow study show increased blood pool activity correspond to the regions of increased flow in the medial left gluteal region and overlying the posterior aspect of the right hip. When compared to the flow images and blood pool images of the prior study dated 05/01/2017, the increased flow in the posterior lower sacral region is less pronounced and slightly more to the left of midline on the current study. IMPRESSION: Incomplete study because of the inability to obtain delayed static images due to a deterioration in the patient's condition. Foci of increased flow are present in the inferior cervical region, just to the left of midline. Some increased flow and blood pool activity is suggested posteriorly in the right hip, but this may be due in part to the presence of a prosthesis on the left.
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
[2018-02-27] VITALS (12 sets, daily range): BP systolic 107–160; BP diastolic 57–90
[2018-02-27 05:32] LABS: ABSOLUTE BASOPHIL COUNT 0 /CUMM (0.0-0.2); ABSOLUTE EOSINOPHIL COUNT 0.1 /CUMM (0.0-0.7); ABSOLUTE GRANULOCYTE CT 7.5 /CUMM (1.4-6.5); ABSOLUTE LYMPH COUNT 0.6 /CUMM (1.2-3.4); ABSOLUTE MONOCYTE COUNT 0.3 /CUMM (0.10-0.60); BASOPHIL % 0.1 % (0.0-2.0); EOSINOPHIL % 0.8 % (0-5); GRANULOCYTE % 88.1 % (42.2-75.2); HEMATOCRIT 29.5 % (42-52); MEAN CORPUSCULAR HGB 28.3 PG (27.0-31.0); MEAN CORPUSCULAR HGB CONC 32.8 G/DL (33.0-37.0); MEAN CORPUSCULAR VOLUME 86.1 FL (80.0-94.0); MEAN PLATELET VOLUME 9.4 FL (7.4-10.4); PLATELET COUNT 152 /CUMM (130-400); RBC DISTRIBUTION WIDTH 17.5 % (11.5-14.5); RED BLOOD CELL CT 3.43 /CUMM (4.70-6.10); WHITE BLOOD CELL COUNT 8.6 /CUMM (4.8-10.8)
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
--- NOTE | 2018-02-27 12:49 | RADIOLOGY REPORT ---
EXAMINATION: XR PORTABLE CHEST CLINICAL INFORMATION: Follow-up for fluid overload. Dyspnea. COMPARISON: Chest x-ray from 02/26/2018. TECHNIQUE: Portable frontal view of the chest was obtained. FINDINGS: Extensive areas of patchy and coalescent airspace disease are again visible throughout both lungs with some improvement in aeration in the right lower lobe. There is worsened airspace disease in the left upper lobe compared to the prior study. A right-sided central venous line is unchanged in position. The cardiomediastinal silhouette is normal. No pleural effusions are seen. No acute osseous abnormality is identified. IMPRESSION: Bilateral lung patchy and coalescent airspace disease. Improved aeration in the right lower lobe. Worsened airspace opacities in the left upper lobe. Differential diagnostic considerations would include multilobar pneumonia or pulmonary edema which may be noncardiogenic, given the absence of associated significant pleural effusions. Clinically correlate.
--- NOTE | 2018-02-27 13:09 | PN- Infect Dx ---
Subjective Subjective: T-max 103 yesterday afternoon, with temperatures lower grade since then. He complains of increased shortness of breath, which is improved with sitting up. He also complains of mid back pain but notes decreased left flank pain. He has moved his bowels. Objective Last 24 Hrs of Vital Signs/I&O Vital Signs Date Time Temp Pulse Resp B/P B/P Pulse O2 O2 Flow FiO2 Mean Ox Delivery Rate 02/27 1200 106 32 160/90 02/27 1200 94 Nasal 70% Cannula 02/27 1110 92 Nasal 75% Cannula 02/27 1015 98.4 02/27 1002 114 123/57 02/27 1000 108 28 123/57 02/27 0959 114 123/57 02/27 0912 100.8 02/27 0829 93 Nasal 75% Cannula 02/27 0800 97.5 110 24 140/80 02/27 0800 97.5 110 24 140/80 94 Nasal 70% Cannula 02/27 0800 94 Nasal 70% Cannula 02/27 0449 100.3 02/27 0426 94 Nasal 75% Cannula 02/27 0400 100.3 100 26 107/59 02/27 0400 97 Nasal 70% Cannula 02/27 0200 105 20 121/57 02/27 0008 94 Nasal 75% Cannula 02/27 0000 98.5 96 20 116/57 05/ 0000 98.5 96 20 116/57 96 Nasal 70% Cannula 02/27 0000 96 Nasal 70% Cannula 02/26 2202 95.2 101 24 116/75 05/18 2200 101 18 116/75 05/18 2200 97 Nasal 80% Cannula 02/26 2000 100 26 96/58 02/26 1800 108 22 96/53 / 1600 100.5 120 24 124/72 05/18 1600 100.5 120 24 124/72 96 Nasal 85% Cannula 02/26 1600 96 Nasal 85% Cannula 02/26 1430 103.0 02/26 1409 93 Nasal 85% Cannula 02/26 1400 101.4 121 28 142/72 18 1355 141 212/113 02/26 1331 100.8 02/26 1313 94 Nasal 6.0L Cannula Intake & Output 02/27 1600 02/27 0800 05 0000 Intake Total 820 1380 Output Total 760 815 Balance 60 565 Intake, IV 200 100 Intake, Oral 620 1280 Output, Urine 760 815 Physical Exam Other Physical Findings: He appears moderately dyspneic on 70% high flow oxygen Neck right IJ triple-lumen catheter with no inflammation at the site Lungs scattered crackles Heart regular rhythm with no murmur Abdomen is distended, tender on palpation, particularly the epigastrium and right upper quadrant, with no guarding or rebound, positive bowel sounds; suprapubic catheter in place Back decreased left CVA tenderness Extremities 1+ edema both lower extremities Results Last 24 Hours of Lab Results: Laboratory Tests 02/27 02/26 0430 1425 Blood Gas pH (7.35 - 7.45 PH) 7.56 H pCO2 (35 - 45 TORR) 25 L pO2 (80 - 100 TORR) 66 L HCO3 (21 - 28 MEQ/L) 22 ABG O2 Sat (Measured) (>96.0 %) 94.0 L P-50 (Temp Corrected) Y Carboxyhemoglobin (1.5 - 5.0 %) 0.6 L O2 Concentration % 85% Temperature (97.0 - 100.0 FARH) 100.8 H O2 Delivery Method [facility] Chemistry Sodium (137 - 145 mmol/L) 134 L Potassium (3.5 - 5.1 mmol/L) 3.6 Chloride (98 - 107 mmol/L) 99 Carbon Dioxide (22 - 30 mmol/L) 26 Anion Gap (5 - 16) 9 BUN (9 - 20 mg/dL) 18 Creatinine (0.7 - 1.2 mg/dL) 0.8 Estimated GFR (>60 ml/min) > 60 Glucose (65 - 99 mg/dL) 298 H Calcium (8.4 - 10.2 mg/dL) 7.6 L Phosphorus (2.5 - 4.5 mg/dL) 1.9 L Magnesium (1.6 - 2.3 mg/dL) 2.0 Total Bilirubin (0.2 - 1.3 mg/dL) 0.6 AST (17 - 59 U/L) 111 H ALT (21 - 72 U/L) 81 H Albumin (3.5 - 5.0 g/dL) 2.2 L TSH (0.270 - 4.200 uIU/mL) 4.860 H Free T4 (0.64 - 1.79 ng/dL) 1.16 Hematology CBC w Diff MAN DIFF ORDERED WBC (4.8 - 10.8 /CUMM) 8.6 RBC (4.70 - 6.10 /CUMM) 3.43 L Hgb (14.0 - 18.0 G/DL) 9.7 L Hct (42 - 52 %) 29.5 L MCV (80.0 - 94.0 FL) 86.1 MCH (27.0 - 31.0 PG) 28.3 MCHC (33.0 - 37.0 G/DL) 32.8 L RDW (11.5 - 14.5 %) 17.5 H Plt Count (130 - 400 /CUMM) 152 MPV (7.4 - 10.4 FL) 9.4 Gran % (42.2 - 75.2 %) 88.1 H Lymphocytes % (20.5 - 51.1 %) 7.3 L Monocytes % (1.7 - 9.3 %) 3.7 Eosinophils % (0 - 5 %) 0.8 Basophils % (0.0 - 2.0 %) 0.1 Absolute Granulocytes (1.4 - 6.5 /CUMM) 7.5 H Segmented Neutrophils (42.2 - 75.2 %) 82 H Band Neutrophils (0.0 - 5.0 %) 8 H Absolute Lymphocytes (1.2 - 3.4 /CUMM) 0.6 L Lymphocytes (20.5 - 51.1 %) 7 L Monocytes (1.7 - 9.3 %) 2 Absolute Monocytes (0.10 - 0.60 /CUMM) 0.3 Eosinophils (0 - 5.0 %) 1 Absolute Eosinophils (0.0 - 0.7 /CUMM) 0.1 Absolute Basophils (0.0 - 0.2 /CUMM) 0 Platelet Estimate (ADEQUATE) ADEQUATE Hypochromic-Microcytic 1+ Anisocytosis 1+ Miscellaneous Phlebotomy Draw Site LEFT RADIAL Last 24 Hours of Fadi Results: Urine culture February 25 approximately 25,000 colonies of yeast Blood cultures 2 February 25 negative Recent Imaging Studies: Chest x-ray February 27 reveals bilateral patchy and coalescent airspace disease Bone scan February 26, incomplete study, reveals possible increased flow and blood pool activity in the right hip Echocardiogram February 25 reveals an ejection fraction of 25-30% Assessment/Plan ID Impression: Fevers persist, though they appear to be lower grade, with white blood cell count normal, with decreased bands, on Unasyn, Day 5 of treatment for possible sepsis of urologic origin secondary to E. coli and Enterococcus in the setting of a suprapubic catheter, with decreased left flank tenderness. His respiratory distress is most likely secondary to pulmonary edema, with his recent echocardiogram revealing an ejection fraction of only 25-30%. His abdominal tenderness is of unclear significance, with a right upper quadrant ultrasound and CT of the abdomen on admission negative for any acute intra-abdominal process. The CT scan of the pelvis did suggest the possibility of an acute, superimposed on chronic, osteomyelitis of the sacrum, with his bone scan unable to be completed, but doubt that this is the source of his recent fevers. The candiduria is of unclear significance with the suprapubic catheter in place and would not treat at this time. Suggestion: 1. Would continue diuresis as tolerated 2. Would defer completion of bone scan until he has stabilized 3. Consider repeat CT of the abdomen and pelvis if his fevers persist 4. Continue Unasyn
--- NOTE | 2018-02-27 15:32 | PN- Att Addend ---
Attending Addendum Attending Brief Note Patient still in ICU some leakage through the suprapubic catheter would have urology check this Patient in no acute distress. Still on high flow oxygen Temperature max on 100.8 with no other major changes on physical if the chest x- ray is not much of a change appreciate management manager input and recommendations His abdomen is a little distended but soft. Intake & Output 02/27 1600 02/27 0400 02/26 1600 02/26 0400 02/25 1600 02/25 0400 Intake Total 1800 1380 1865 1370 2890 690 Output Total 2760 815 1410 1190 2535 3620 Balance -960 565 455 180 355 -2930 Intake, IV 460 100 918 745 8332 450 Intake, Oral 1340 1280 9916 360 9754 240 Number 3 1 0 0 0 Bowel Movements Output, Urine 2760 815 1410 1190 2535 3620 Patient 233 lb Weight Current Medications Sig/Cynthia Start time Last Medication Dose Route Stop Time Status Admin Acetaminophen 650 MG .STK-MED ONE 02/27 0116 DC PO 02/27 0117 Acetaminophen 1,000 MG Q6P PRN 02/25 0545 02/27 N/A 1 UNIT IV 0912 Acetaminophen 650 MG Q6P PRN 02/23 1000 AC 02/27 PO 0118 Albuterol Sulfate 3 ML Q6P PRN 02/24 1400 AC 02/24 INH 1402 Ampicillin Sodium/ 3,000 MG Q6 02/25 1800 AC 02/27 Sulbactam Sodium IV 1145 Sodium Chloride 100 ML Bupropion HCl 150 MG DAILY 02/24 0900 AC 02/27 PO 1002 Docusate Sodium 100 MG DAILY 02/25 1438 AC 02/26 PO 0836 Duloxetine HCl 90 MG 1800 02/23 1800 AC 02/26 PO 1702 Enoxaparin Sodium 40 MG DAILY 02/24 0900 AC 02/27 SC 1001 Escitalopram Oxalate 20 MG DAILY 02/24 0900 AC 02/27 PO 0959 Furosemide 20 MG DAILY 02/28 0900 DC 02/27 IV 1203 Furosemide 20 MG ONCE ONE 02/27 1215 DC IV 02/27 1216 Gabapentin 300 MG Q6 02/23 1200 AC 02/27 PO 1118 Hydromorphone HCl 0.2 MG ONCE PRN 02/23 1815 AC 02/24 IV 0947 Insulin Aspart 0 TIDAC 02/23 1200 AC 02/27 SC 1144 Insulin Detemir 10 UNITS BID 02/25 2100 AC 02/27 SC 1000 Lisinopril 5 MG DAILY 02/27 0900 AC 02/27 PO 0959 Metoprolol Tartrate 50 MG BID 02/26 2100 AC 02/27 PO 1002 Metoprolol Tartrate 5 MG .STK-MED ONE 02/26 1754 DC IV 02/26 1755 Omeprazole 40 MG DAILY AC 02/24 0700 AC 02/27 PO 0645 Oxycodone HCl 10 MG Q8 PRN 02/24 1345 AC 02/27 PO 1119 Phosphate 250 MG PC AND AT BEDTIME 02/25 1700 AC 02/27 PO 1000 Polyethylene Glycol 17 GM DAILY 02/25 1438 AC 02/26 PO 0837 Potassium Chloride 40 MEQ ONCE ONE 02/27 0845 DC 02/27 PO 02/27 0846 1002 Potassium Chloride 40 MEQ .STK-MED ONE 02/26 1753 DC PO 02/26 1754 Potassium Chloride 40 MEQ DAILY 02/26 1130 DC 02/26 PO 02/27 0901 1128 Senna 187 MG AT BEDTIME 02/25 2100 02/26 PO 2203 Simethicone 40 MG Q4P PRN 02/26 1515 AC PO Trimethobenzamide HCl 200 MG .STK-MED ONE 02/26 1754 DC IM 02/26 1755 Trimethobenzamide HCl 200 MG 4 TIMES/DAY PRN 02/26 1345 02/26 IM 1338 Vitamin A/Vitamin D 1 GEOVANNY DAILY 02/26 0900 02/27 TOP 0959 Laboratory Tests 02/27/18 0430: Anion Gap 9, Estimated GFR > 60, Glucose 298 H, Calcium 7.6 L, Phosphorus 1.9 L, Magnesium 2.0, Total Bilirubin 0.6, AST 111 H, ALT 81 H, Albumin 2.2 L, TSH 4.860 H, Free T4 1.16, CBC w Diff MAN DIFF ORDERED, RBC 3.43 L, MCV 86.1, MCH 28.3, MCHC 32.8 L, RDW 17.5 H, MPV 9.4, Gran % 88.1 H, Lymphocytes % 7.3 L, Monocytes % 3.7, Eosinophils % 0.8, Basophils % 0.1, Absolute Granulocytes 7.5 H, Segmented Neutrophils 82 H, Band Neutrophils 8 H, Absolute Lymphocytes 0.6 L, Lymphocytes 7 L, Monocytes 2, Absolute Monocytes 0.3, Eosinophils 1, Absolute Eosinophils 0.1, Absolute Basophils 0, Platelet Estimate ADEQUATE, Hypochromic-Microcytic 1+, Anisocytosis 1+ 02/26/18 1425: pH 7.56 H, pCO2 25 L, pO2 66 L, HCO3 22, ABG O2 Sat (Measured) 94.0 L, P-50 (Temp Corrected) Y, Carboxyhemoglobin 0.6 L, O2 Concentration % 85%, Temperature 100.8 H, O2 Delivery Method HFNC, Phlebotomy Draw Site LEFT RADIAL 02/26/18 0430: Anion Gap 10, Estimated GFR > 60, Glucose 284 H, Calcium 7.7 L, Phosphorus 1.8 L, Magnesium 1.8, Total Bilirubin 0.7, AST 63 H, ALT 54, Albumin 2.3 L, CBC w Diff MAN DIFF ORDERED, RBC 3.53 L, MCV 86.5, MCH 28.0, MCHC 32.4 L, RDW 17.0 H, MPV 9.2, Gran % 95.7 H, Lymphocytes % 2.7 L, Monocytes % 1.2 L, Eosinophils % 0.4, Basophils % 0, Absolute Granulocytes 6.1, Segmented Neutrophils 81 H, Band Neutrophils 14 H, Absolute Lymphocytes 0.2 L, Lymphocytes 5 L, Absolute Monocytes 0.1, Absolute Eosinophils 0, Absolute Basophils 0, Platelet Estimate ADEQUATE, Polychromasia 1+, Hypochromic- Microcytic 1+, Poikilocytosis 1+, Ovalocytes 1+, [place] Cells FEW, Fld Total RBCs Counted 100 02/25/18 1515: Anion Gap 11, Estimated GFR > 60, Glucose 253 H, Calcium 7.5 L, Phosphorus 1.9 L, Magnesium 1.8, Total Bilirubin 0.9, AST 61 H, ALT 52, Troponin I 0.23 *H, Albumin 2.4 L 02/25/18 1000: Sodium Cancelled, Potassium Cancelled, Chloride Cancelled, Carbon Dioxide Cancelled, Anion Gap Cancelled, BUN Cancelled, Creatinine Cancelled, Glucose Cancelled, Calcium Cancelled, Phosphorus Cancelled, Magnesium Cancelled, Total Bilirubin Cancelled, AST Cancelled, ALT Cancelled, Albumin Cancelled 02/25/18 0345: Anion Gap 11, Estimated GFR > 60, Glucose 279 H, Calcium 8.0 L, Phosphorus 2.2 L, Magnesium 2.0, Total Bilirubin 0.8, AST 27, ALT 46, Albumin 2.7 L, CBC w Diff NO MAN DIFF REQ, RBC 3.95 L, MCV 85.6, MCH 28.3, MCHC 33.0, RDW 16.6 H, MPV 8.8, Gran % 90.5 H, Lymphocytes % 4.2 L, Monocytes % 5.2, Eosinophils % 0, Basophils % 0.1, Absolute Granulocytes 10.2 H, Absolute Lymphocytes 0.5 L, Absolute Monocytes 0.6, Absolute Eosinophils 0, Absolute Basophils 0 02/24/18 2241: Troponin I 0.32 *H 02/24/181928: Lactic Acid 1.7 02/24/181924: Lactic Acid 1.7 02/24/18 1659: pH 7.46 H, pCO2 33 L, pO2 69 L, HCO3 23, ABG O2 Sat (Measured) 94.0 L, Carboxyhemoglobin 1.5, O2 Concentration % 100, O2 Delivery Method NRB, Phlebotomy Draw Site RIGHT RADIAL 02/24/18 1656: Anion Gap 18 H, Estimated GFR > 60, BUN/Creatinine Ratio 14.3, Lactic Acid 4.3 H, Phosphorus 2.8, Magnesium 1.9, Troponin I 0.34 *H, [id number] Pept 1580 H, PT 14.1 H, INR 1.29 H, APTT 35, CBC w Diff NO MAN DIFF REQ, RBC 4.87, MCV 86.8, MCH 28.1, MCHC 32.4 L, RDW 16.6 H, MPV 8.6, Gran % 85.9 H, Lymphocytes % 12.7 L, Monocytes % 1.2 L, Eosinophils % 0.2, Basophils % 0, Absolute Granulocytes 6.8 H, Absolute Lymphocytes 1.0 L, Absolute Monocytes 0.1, Absolute Eosinophils 0, Absolute Basophils 0 02/24/18 1646: Troponin I Cancelled Microbiology 02/27 1426 URINE ROUT: Urine Culture - ORD 02/25 1530 URINE ROUT: Urine Culture - RES YEAST 02/25 1000 BLOOD: Blood Culture - RES 02/25 0950 BLOOD: Blood Culture - RES 02/25 0807 LOWER RESP: Respiratory Culture - CAN Cancelled: SPECIMEN NOT RECEIVED IN LABORATORY 02/25 0807 LOWER RESP: Gram Stain - CAN Cancelled: SPECIMEN NOT RECEIVED IN LABORATORY 02/24 173 UPPER RESP: Surveillance Culture - COMP 02/24 1730 GI: Surveillance Culture - COMP Microbiology 02/27 1426 URINE ROUT: Urine Culture - ORD 02/25 1530 URINE ROUT: Urine Culture - RES YEAST 02/25 1000 BLOOD: Blood Culture - RES 02/25 0950 BLOOD: Blood Culture - RES 02/25 0807 LOWER RESP: Respiratory Culture - CAN Cancelled: SPECIMEN NOT RECEIVED IN LABORATORY 02/25 0807 LOWER RESP: Gram Stain - CAN Cancelled: SPECIMEN NOT RECEIVED IN LABORATORY 02/24 1730 UPPER RESP: Surveillance Culture - COMP 02/24 173 GI: Surveillance Culture - COMP Vital Signs Date Time Temp Pulse Resp B/P B/P Pulse O2 O2 Flow FiO2 Mean Ox Delivery Rate 02/27 1509 94 Nasal 80% Cannula 02/27 1430 93 Nasal 75% Cannula 02/27 1400 99.9 112 30 135/76 02/27 1200 106 32 160/90 02/27 1200 94 Nasal 70% Cannula 02/27 1110 92 Nasal 75% Cannula 02/27 1015 98.4 02/27 1002 114 123/57 02/27 1000 108 28 123/57 02/27 0959 114 123/57 02/27 0912 100.8 02/27 0829 93 Nasal 75% Cannula 02/27 0800 97.5 110 24 140/80 / 0800 97.5 110 24 140/80 94 Nasal 70% Cannula 02/27 0800 94 Nasal 70% Cannula 02/27 0449 100.3 02/27 0426 94 Nasal 75% Cannula 02/27 0400 100.3 100 26 107/59 / 0400 97 Nasal 70% Cannula 02/27 0200 105 20 121/57 / 0008 94 Nasal 75% Cannula / 0000 98.5 96 20 116/57 05/19 0000 98.5 96 20 116/57 96 Nasal 70% Cannula 05/ 0000 96 Nasal 70% Cannula 05/ 2202 95.2 101 24 116/75 05/18 2200 101 18 116/75 05/18 2200 97 Nasal 80% Cannula 02/26 2000 100 26 96/58 05/18 1800 108 22 96/53 05/18 1600 100.5 120 24 124/72 05/18 1600 100.5 120 24 124/72 96 Nasal 85% Cannula 05/18 1600 96 Nasal 85% Cannula Monitoring H&H has dropped a little may be dilutional maybe related to some hemorrhoidal bleeding
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
--- NOTE | 2018-02-27 16:04 | PN- Cardiology ---
Subjective Subjective: The patient is noted to have increased shortness of breath and increased oxygen requirement. No chest pain. No palpitations. No diaphoresis. Objective Vital Signs and I&Os Vital Signs Date Time Temp Pulse Resp B/P B/P Pulse O2 O2 Flow FiO2 Mean Ox Delivery Rate 02/27 1509 94 Nasal 80% Cannula 02/27 1430 93 Nasal 75% Cannula 02/27 1400 99.9 112 30 135/76 02/27 1200 106 32 160/90 02/27 1200 94 Nasal 70% Cannula 02/27 1110 92 Nasal 75% Cannula 02/27 1015 98.4 02/27 1002 114 123/57 02/27 1000 108 28 123/57 02/27 0959 114 123/57 02/27 0912 100.8 02/27 0829 93 Nasal 75% Cannula 02/27 0800 97.5 110 24 140/80 02/27 0800 97.5 110 24 140/80 94 Nasal 70% Cannula 02/27 0800 94 Nasal 70% Cannula 02/27 0449 100.3 02/27 0426 94 Nasal 75% Cannula 02/27 0400 100.3 100 26 107/59 02/27 0400 97 Nasal 70% Cannula 02/27 0200 105 20 121/57 02/27 0008 94 Nasal 75% Cannula 02/27 0000 98.5 96 20 116/57 02/27 0000 98.5 96 20 116/57 96 Nasal 70% Cannula 02/27 0000 96 Nasal 70% Cannula 02/26 2202 95.2 101 24 116/75 02/26 2200 101 18 116/75 02/26 2200 97 Nasal 80% Cannula 02/26 2000 100 26 96/58 02/26 1800 108 22 96/53 Intake & Output 02/27 1600 02/27 0800 02/27 0000 02/26 1600 02/26 0800 02/26 0000 Intake Total 289 995 5493 740 1125 1370 Output Total 1999 760 815 698 733 2285 Balance -1020 60 565 140 315 180 Intake, IV 260 200 100 220 325 610 Intake, Oral 014 387 9299 520 800 760 Number 3 1 0 Bowel Movements Output, Urine 1999 760 815 512 199 6934 Physical Exam: Gen: NAD HEENT: normal Lungs: Bilateral rhonchi, normal resp. effort Heart: RRR, S1, S2, no murmurs Abdomen: Soft, nontender, no masses Extremities: No clubbing, cyanosis, or edema. Neuro: Alert and oriented x 3, cranial nerves intact Current Medications: Current Medications Sig/Cynthia Start time Last Medication Dose Route Stop Time Status Admin Acetaminophen 650 MG .STK-MED ONE 02/27 0116 DC PO 02/27 0117 Acetaminophen 1,000 MG Q6P PRN 02/25 0545 02/27 N/A 1 UNIT IV 0912 Acetaminophen 650 MG Q6P PRN 02/23 1000 AC 02/27 PO 0118 Albuterol Sulfate 3 ML Q6P PRN 02/24 1400 AC 02/24 INH 1402 Ampicillin Sodium/ 3,000 MG Q6 02/25 1800 AC 02/27 Sulbactam Sodium IV 1145 Sodium Chloride 100 ML Bupropion HCl 150 MG DAILY 02/24 0900 02/27 PO 1002 Docusate Sodium 100 MG DAILY 02/25 1438 AC 02/26 PO 0836 Duloxetine HCl 90 MG 1800 02/23 1800 AC 02/26 PO 1702 Enoxaparin Sodium 40 MG DAILY 02/24 0900 02/27 SC 1001 Escitalopram Oxalate 20 MG DAILY 02/24 0900 02/27 PO 0959 Furosemide 20 MG DAILY 02/28 0900 IA 02/27 IV 1203 Furosemide 20 MG ONCE ONE 02/27 1215 DC IV 02/27 1216 Gabapentin 300 MG Q6 02/23 1200 02/27 PO 1118 Hydromorphone HCl 0.2 MG ONCE PRN 02/23 1815 AC 02/24 IV 0947 Insulin Aspart 0 TIDAC 02/23 1200 02/27 SC 1144 Insulin Detemir 10 UNITS BID 02/25 2100 02/27 SC 1000 Lisinopril 5 MG DAILY 02/27 0900 02/27 PO 0959 Metoprolol Tartrate 50 MG BID 02/26 2100 AC 02/27 PO 1002 Metoprolol Tartrate 5 MG .STK-MED ONE 02/26 1754 DC IV 02/26 1755 Omeprazole 40 MG DAILY AC 02/24 0700 02/27 PO 0645 Oxycodone HCl 10 MG Q8 PRN 02/24 1345 AC 02/27 PO 1119 Phosphate 250 MG PC AND AT BEDTIME 02/25 1700 02/27 PO 1000 Polyethylene Glycol 17 GM DAILY 02/25 1438 02/26 PO 0837 Potassium Chloride 40 MEQ ONCE ONE 02/27 0845 DC 02/27 PO 02/27 0846 1002 Potassium Chloride 40 MEQ .STK-MED ONE 02/26 1753 DC PO 02/26 1754 Potassium Chloride 40 MEQ DAILY 02/26 1130 DC 02/26 PO 02/27 0901 1128 Senna 187 MG AT BEDTIME 02/25 2100 AC 02/26 PO 2203 Simethicone 40 MG Q4P PRN 02/26 1515 AC PO Trimethobenzamide HCl 200 MG .STK-MED ONE 02/26 1754 DC IM 02/26 1755 Trimethobenzamide HCl 200 MG 4 TIMES/DAY PRN 02/26 1345 AC 02/26 IM 1338 Vitamin A/Vitamin D 1 GEOVANNY DAILY 02/26 0900 AC 02/27 TOP 0959 Results Last 48 Hrs of Labs/Mics: Laboratory Tests 02/27/18 0430: Anion Gap 9, Estimated GFR > 60, Glucose 298 H, Calcium 7.6 L, Phosphorus 1.9 L, Magnesium 2.0, Total Bilirubin 0.6, AST 111 H, ALT 81 H, Albumin 2.2 L, TSH 4.860 H, Free T4 1.16, CBC w Diff MAN DIFF ORDERED, RBC 3.43 L, MCV 86.1, MCH 28.3, MCHC 32.8 L, RDW 17.5 H, MPV 9.4, Gran % 88.1 H, Lymphocytes % 7.3 L, Monocytes % 3.7, Eosinophils % 0.8, Basophils % 0.1, Absolute Granulocytes 7.5 H, Segmented Neutrophils 82 H, Band Neutrophils 8 H, Absolute Lymphocytes 0.6 L, Lymphocytes 7 L, Monocytes 2, Absolute Monocytes 0.3, Eosinophils 1, Absolute Eosinophils 0.1, Absolute Basophils 0, Platelet Estimate ADEQUATE, Hypochromic-Microcytic 1+, Anisocytosis 1+ 02/26/18 1425: pH 7.56 H, pCO2 25 L, pO2 66 L, HCO3 22, ABG O2 Sat (Measured) 94.0 L, P-50 (Temp Corrected) Y, Carboxyhemoglobin 0.6 L, O2 Concentration % 85%, Temperature 100.8 H, O2 Delivery Method HFNC, Phlebotomy Draw Site LEFT RADIAL 02/26/18 0430: Anion Gap 10, Estimated GFR > 60, Glucose 284 H, Calcium 7.7 L, Phosphorus 1.8 L, Magnesium 1.8, Total Bilirubin 0.7, AST 63 H, ALT 54, Albumin 2.3 L, CBC w Diff MAN DIFF ORDERED, RBC 3.53 L, MCV 86.5, MCH 28.0, MCHC 32.4 L, RDW 17.0 H, MPV 9.2, Gran % 95.7 H, Lymphocytes % 2.7 L, Monocytes % 1.2 L, Eosinophils % 0.4, Basophils % 0, Absolute Granulocytes 6.1, Segmented Neutrophils 81 H, Band Neutrophils 14 H, Absolute Lymphocytes 0.2 L, Lymphocytes 5 L, Absolute Monocytes 0.1, Absolute Eosinophils 0, Absolute Basophils 0, Platelet Estimate ADEQUATE, Polychromasia 1+, Hypochromic- Microcytic 1+, Poikilocytosis 1+, Ovalocytes 1+, [place] Cells FEW, Fld Total RBCs Counted 100 Recent Imaging Studies: Bilateral lung patchy and coalescent airspace disease. Improved aeration in the right lower lobe. Worsened airspace opacities in the left upper lobe. Differential diagnostic considerations would include multilobar pneumonia or pulmonary edema which may be noncardiogenic, given the absence of associated significant pleural effusions. Clinically correlate. Assessment/Plan Assessment/Plan Assessment: 1. Hypertension 2. Diabetes mellitus 3. Sepsis 4. Acute systolic heart failure, LVEF 25-30% Plan: * Increase Lasix to 20 mg IV every 12 hours * Monitor input and output * Basic metabolic profile daily * Increase lisinopril to 10 mg daily Continue telemetry? Yes
[2018-02-28] VITALS (8 sets, daily range): BP systolic 108–200; BP diastolic 70–116
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
--- NOTE | 2018-02-28 06:16 | RADIOLOGY REPORT ---
EXAMINATION: XR PORTABLE CHEST CLINICAL INFORMATION: Blood tinged sputum. Fever. On antibiotics. COMPARISON: Chest x-ray February 27, 2018 TECHNIQUE: Portable frontal view of the chest was obtained. 10:14 AM FINDINGS: Exam is limited. The exam does not include the lung bases. Right IJ catheter tip in the superior vena cava. The catheter tip is about 6 cm above the cavoatrial junction. There is diffuse bilateral airspace disease. These airspace opacities are become denser and more confluent, particularly in the left upper lobe, compared to prior study of February 27, 2018. IMPRESSION: Worsening bilateral airspace opacities compared to the exam of February 27, 2018.
[2018-02-28 06:44] LABS: ABSOLUTE BASOPHIL COUNT 0 /CUMM (0.0-0.2); ABSOLUTE EOSINOPHIL COUNT 0.1 /CUMM (0.0-0.7); ABSOLUTE GRANULOCYTE CT 7.4 /CUMM (1.4-6.5); ABSOLUTE LYMPH COUNT 1.3 /CUMM (1.2-3.4); ABSOLUTE MONOCYTE COUNT 0.1 /CUMM (0.10-0.60); BASOPHIL % 0 % (0.0-2.0); EOSINOPHIL % 0.7 % (0-5); GRANULOCYTE % 82.9 % (42.2-75.2); MEAN CORPUSCULAR HGB 27.7 PG (27.0-31.0); MEAN CORPUSCULAR HGB CONC 32.5 G/DL (33.0-37.0); MEAN PLATELET VOLUME 9.7 FL (7.4-10.4); PLATELET COUNT 202 /CUMM (130-400); RBC DISTRIBUTION WIDTH 17.3 % (11.5-14.5); RED BLOOD CELL CT 4.16 /CUMM (4.70-6.10); WHITE BLOOD CELL COUNT 8.9 /CUMM (4.8-10.8)
[2018-02-28 06:49] LABS: HEMATOCRIT 35.4 % (42-52)
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
--- NOTE | 2018-02-28 15:50 | PN- Att Addend ---
Attending Addendum Attending Brief Note Patient still in ICU didn't have a good evening still on high flow oxygen and had a CAT scan overnight with no major changes in was a little bit elevated this morning cardiology saw the patient and adjusted his medications no major changes on physical and white count OK. There are major changes to continue treatment as per consultants monitor his temperature which still fluctuates and needs Tylenol. Intake & Output 02/28 1600 02/28 0400 02/27 1600 02/27 0400 02/26 1600 02/26 0400 Intake Total 1180 1060 1800 1380 1865 1370 Output Total 3000 1950 2760 815 1410 1190 Balance -1820 -890 -960 565 455 180 Intake, IV 580 120 460 100 545 610 Intake, Oral 615 136 6885 1280 1320 760 Number 3 3 3 1 0 Bowel Movements Output, Urine 3000 1950 2760 815 1410 1190 Current Medications Sig/Cynthia Start time Last Medication Dose Route Stop Time Status Admin Acetaminophen 1,000 MG .STK-MED ONE 02/28 0208 DC IV 02/28 0209 Acetaminophen 650 MG .STK-MED ONE 02/27 1806 DC PO 02/27 1807 Acetaminophen 1,000 MG .STK-MED ONE 02/27 1755 DC IV 02/27 1756 Acetaminophen 1,000 MG Q6P PRN 02/25 0545 AC 02/28 N/A 1 UNIT IV 0933 Acetaminophen 650 MG Q6P PRN 02/23 1000 AC 02/27 PO 1809 Albuterol Sulfate 3 ML Q6P PRN 02/24 1400 AC 02/28 INH 0824 Ampicillin Sodium/ 3,000 MG Q6 02/25 1800 AC 02/28 Sulbactam Sodium IV 1155 Sodium Chloride 100 ML Bupropion HCl 150 MG DAILY 02/24 09 DC 02/27 PO 1002 Docusate Sodium 100 MG DAILY 02/25 1438 AC 02/28 PO 0934 Duloxetine HCl 90 MG 1800 02/23 1800 DC 02/27 PO 1805 Enoxaparin Sodium 40 MG DAILY 02/24 0900 AC 02/28 SC 0933 Escitalopram Oxalate 20 MG DAILY 02/24 09 DC 02/27 PO 0959 Furosemide 20 MG ONCE ONE 02/28 1000 DC 02/28 IV 02/28 1001 0956 Furosemide 20 MG DAILY 02/28 0900 DC 02/27 IV 1203 Furosemide 20 MG 7:30 AM, & 4:30 PM 02/27 1830 AC 02/28 IV 0755 Gabapentin 300 MG Q6 02/23 1200 AC 02/28 PO 0531 Hydromorphone HCl 0.2 MG ONCE PRN 02/23 1815 AC 02/24 IV 0947 Insulin Aspart 0 TIDAC 02/23 1200 AC 02/28 SC 1155 Insulin Detemir 10 UNITS BID 02/25 2100 AC 02/28 SC 0956 Lisinopril 10 MG DAILY 02/28 0900 AC 02/28 PO 0934 Lisinopril 5 MG DAILY 02/27 0900 DC 02/27 PO 0959 Metoprolol Tartrate 100 MG BID 02/28 2100 AC PO Metoprolol Tartrate 50 MG ONCE ONE 02/28 1230 DC 02/28 PO 02/28 1231 1331 Metoprolol Tartrate 50 MG BID 02/26 2100 DC 02/28 PO 0533 Omeprazole 40 MG DAILY AC 02/24 0700 AC 02/28 PO 0531 Oxycodone HCl 10 MG Q8P PRN 02/27 2115 AC 02/28 PO 0755 Oxycodone HCl 10 MG Q8 PRN 02/24 1345 DC 02/27 PO 1119 Phosphate 250 MG PC AND AT BEDTIME 02/25 1700 AC 02/28 PO 1331 Polyethylene Glycol 17 GM DAILY 02/25 1438 AC 02/28 PO 0933 Potassium Chloride 40 MEQ ONCE ONE 02/28 1330 DC 02/28 PO 02/28 1331 1331 Senna 187 MG AT BEDTIME 02/25 2100 AC 02/26 PO 2203 Simethicone 40 MG Q4P PRN 02/26 1515 AC PO Trimethobenzamide HCl 200 MG 4 TIMES/DAY PRN 02/26 1345 AC 02/26 IM 1338 Vitamin A/Vitamin D 1 GEOVANNY DAILY 02/26 0900 AC 02/28 TOP 0956 Laboratory Tests 02/28/18 0500: Anion Gap 13, Estimated GFR > 60, Glucose 230 H, Calcium 8.0 L, Phosphorus 2.9 , Magnesium 1.8, Total Bilirubin 1.0, AST 98 H, ALT 89 H, C-Reactive Prot, Quant > 9.0 H, Albumin 2.6 L, CBC w Diff MAN DIFF ORDERED, RBC 4.16 L, MCV 85.0, MCH 27.7, MCHC 32.5 L, RDW 17.3 H, MPV 9.7, Gran % 82.9 H, Lymphocytes % 14.9 L, Monocytes % 1.5 L, Eosinophils % 0.7, Basophils % 0, Absolute Granulocytes 7.4 H, Segmented Neutrophils 65, Band Neutrophils 2, Absolute Lymphocytes 1.3, Lymphocytes 27, Monocytes 4, Absolute Monocytes 0.1, Eosinophils 2, Absolute Eosinophils 0.1, Absolute Basophils 0, Platelet Estimate ADEQUATE, Hypochromic-Microcytic 1+, Ovalocytes FEW, EUNICE Titer Pending, Anti- Nuclear Antibody Pending, Fld Total RBCs Counted 100 02/27/18 0430: Anion Gap 9, Estimated GFR > 60, Glucose 298 H, Calcium 7.6 L, Phosphorus 1.9 L, Magnesium 2.0, Total Bilirubin 0.6, AST 111 H, ALT 81 H, Albumin 2.2 L, TSH 4.860 H, Free T4 1.16, CBC w Diff MAN DIFF ORDERED, RBC 3.43 L, MCV 86.1, MCH 28.3, MCHC 32.8 L, RDW 17.5 H, MPV 9.4, Gran % 88.1 H, Lymphocytes % 7.3 L, Monocytes % 3.7, Eosinophils % 0.8, Basophils % 0.1, Absolute Granulocytes 7.5 H, Segmented Neutrophils 82 H, Band Neutrophils 8 H, Absolute Lymphocytes 0.6 L, Lymphocytes 7 L, Monocytes 2, Absolute Monocytes 0.3, Eosinophils 1, Absolute Eosinophils 0.1, Absolute Basophils 0, Platelet Estimate ADEQUATE, Hypochromic-Microcytic 1+, Anisocytosis 1+ 02/26/18 1425: pH 7.56 H, pCO2 25 L, pO2 66 L, HCO3 22, ABG O2 Sat (Measured) 94.0 L, P-50 (Temp Corrected) Y, Carboxyhemoglobin 0.6 L, O2 Concentration % 85%, Temperature 100.8 H, O2 Delivery Method [facility], Phlebotomy Draw Site LEFT RADIAL 02/26/18 043: Anion Gap 10, Estimated GFR > 60, Glucose 284 H, Calcium 7.7 L, Phosphorus 1.8 L, Magnesium 1.8, Total Bilirubin 0.7, AST 63 H, ALT 54, Albumin 2.3 L, CBC w Diff MAN DIFF ORDERED, RBC 3.53 L, MCV 86.5, MCH 28.0, MCHC 32.4 L, RDW 17.0 H, MPV 9.2, Gran % 95.7 H, Lymphocytes % 2.7 L, Monocytes % 1.2 L, Eosinophils % 0.4, Basophils % 0, Absolute Granulocytes 6.1, Segmented Neutrophils 81 H, Band Neutrophils 14 H, Absolute Lymphocytes 0.2 L, Lymphocytes 5 L, Absolute Monocytes 0.1, Absolute Eosinophils 0, Absolute Basophils 0, Platelet Estimate ADEQUATE, Polychromasia 1+, Hypochromic- Microcytic 1+, Poikilocytosis 1+, Ovalocytes 1+, Desmond Cells FEW, Fld Total RBCs Counted 100 Microbiology 02/29 528 LOWER RESP: Respiratory Culture - COLB 02/29 528 LOWER RESP: Gram Stain - COLB 02/28 031 BLOOD: Blood Culture - RECD 02/28 230 BLOOD: Blood Culture - RECD 02/27 143 URINE ROUT: Urine Culture - RES Microbiology 02/29 528 LOWER RESP: Respiratory Culture - COLB 02/29 528 LOWER RESP: Gram Stain - COLB 02/28 315 BLOOD: Blood Culture - RECD 02/28 230 BLOOD: Blood Culture - RECD 02/27 1430 URINE ROUT: Urine Culture - RES Vital Signs Date Time Temp Pulse Resp B/P B/P Pulse O2 O2 Flow FiO2 Mean Ox Delivery Rate 02/28 1331 118/72 02/28 1200 97.7 91 26 108/70 02/28 1200 99 Nasal 90% Cannula 02/28 1200 97.7 91 26 108/70 99 Nasal 90% Cannula 02/28 1000 98.3 02/28 1000 98.3 103 28 110/70 02/28 0959 98.3 02/28 0934 149/99 02/28 0933 100.8 02/28 0900 100.8 02/28 0825 90 Nasal 90% Cannula 02/28 0800 99.7 114 36 130/80 02/28 0800 99.7 114 26 130/80 90 Nasal 90% Cannula 02/28 0800 90 Nasal 90% Cannula 02/28 0557 103.4 145 38 200/116 02/28 0533 145 200/119 02/28 0527 101.7 02/28 0400 98.2 124 30 189/71 02/28 0400 93 Nasal 80% Cannula 02/28 0212 103.0 02/28 0210 91 Nasal 80% Cannula 05/20 0200 103.0 114 34 161/90 05/20 0044 93 Nasal 80% Cannula 05/20 0020 98.2 104 28 135/74 05/20 0020 90 Nasal 75% Cannula 05/19 2348 97.6 103 30 122/69 93 Nasal Cannula 05/19 2219 93 Nasal 75% Cannula 05/19 2208 98.5 05/19 2152 99.5 118 28 143/73 05/19 2112 118 143/73 05/19 1999 100.1 119 20 144/86 05/ 2000 94 Nasal 75% Cannula 05/19 1940 100.1 119 19 144/86 94 Nasal Cannula 05/19 1911 93 Nasal 75% Cannula 05/19 1909 99.7 05/19 1809 100.2 05/19 1630 94 Nasal 80% Cannula 05/19 1600 97.2 106 26 143/71 05/19 1600 97.2 106 26 118/80 92 Nasal 80% Cannula 05/19 1600 92 Nasal 80% Cannula
[2018-03-01] VITALS: BP 150/70
[2018-03-01 05:21] LABS: ABSOLUTE BASOPHIL COUNT 0 /CUMM (0.0-0.2); ABSOLUTE EOSINOPHIL COUNT 0.1 /CUMM (0.0-0.7); ABSOLUTE GRANULOCYTE CT 8.6 /CUMM (1.4-6.5); ABSOLUTE LYMPH COUNT 1.4 /CUMM (1.2-3.4); ABSOLUTE MONOCYTE COUNT 0.7 /CUMM (0.10-0.60); BASOPHIL % 0 % (0.0-2.0); EOSINOPHIL % 0.7 % (0-5); GRANULOCYTE % 79.3 % (42.2-75.2); HEMATOCRIT 30.8 % (42-52); MEAN CORPUSCULAR HGB CONC 33.1 G/DL (33.0-37.0); MEAN CORPUSCULAR VOLUME 84.5 FL (80.0-94.0); MEAN PLATELET VOLUME 9.4 FL (7.4-10.4); PLATELET COUNT 196 /CUMM (130-400); RBC DISTRIBUTION WIDTH 17.4 % (11.5-14.5); RED BLOOD CELL CT 3.65 /CUMM (4.70-6.10); WHITE BLOOD CELL COUNT 10.9 /CUMM (4.8-10.8)
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
[2018-03-01 08:00] VITALS: BP 132/74
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
--- NOTE | 2018-03-01 10:51 | PN- Att Addend ---
Attending Addendum Attending Brief Note Patient still in ICU still needing high flow oxygen and his temperature is down a little bit. 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 Right now he is off antidepressants will continue evaluation will need to better IV access will be replacing low potassium condition is still poor. Intake & Output 03/01 1600 03/01 0400 02/28 1600 02/28 0400 02/27 1600 02/27 0400 Intake Total 616 569 4594 1060 1800 1380 Output Total 1260 1800 3000 1950 2760 815 Balance -540 -1320 -1820 -890 -960 565 Intake, IV 200 120 580 120 460 100 Intake, Oral 520 360 454 639 2208 1280 Number 3 3 3 Bowel Movements Output, Urine 1260 1800 3000 1950 2760 815 Current Medications Sig/Cynthia Start time Last Medication Dose Route Stop Time Status Admin Acetaminophen 650 MG .STK-MED ONE 02/29 2248 DC PO 02/28 224 Acetaminophen 1,000 MG Q6P PRN 02/25 0545 02/28 N/A 1 UNIT IV 0933 Acetaminophen 650 MG Q6P PRN 02/23 1000 03/01 PO 0638 Albuterol Sulfate 3 ML Q6P PRN 02/24 1400 AC 02/28 INH 0824 Ampicillin Sodium/ 3,000 MG Q6 02/25 1800 03/01 Sulbactam Sodium IV 0529 Sodium Chloride 100 ML Docusate Sodium 100 MG DAILY 02/25 1438 03/01 PO 0855 Enoxaparin Sodium 40 MG DAILY 02/24 0900 03/01 SC 0857 Furosemide 20 MG 7:30 AM, & 4:30 PM 02/27 1830 03/01 IV 0805 Gabapentin 300 MG Q6 02/23 1200 03/01 PO 0632 Hydromorphone HCl 0.2 MG ONCE PRN 02/23 1815 AC 02/24 IV 0947 Insulin Aspart 0 TIDAC 02/23 1200 AC 03/01 SC 0806 Insulin Detemir 10 UNITS BID 02/25 2100 AC 03/01 SC 0857 Lisinopril 10 MG DAILY 02/28 0900 AC 03/01 PO 0857 Magnesium Oxide 400 MG ONE ONE 03/01 0900 DC 03/01 PO 03/01 0901 0855 Metoprolol Tartrate 100 MG BID 02/28 2100 AC 03/01 PO 0857 Metoprolol Tartrate 50 MG ONCE ONE 02/28 1230 DC 02/28 PO 02/28 1231 1331 Metoprolol Tartrate 50 MG BID 02/26 2100 DC 02/28 PO 0533 Omeprazole 40 MG DAILY AC 02/24 0700 AC 03/01 PO 0632 Oxycodone HCl 10 MG Q8P PRN 02/27 2115 AC 03/01 PO 0855 Phosphate 250 MG PC AND AT BEDTIME 02/25 1700 AC 03/01 PO 0857 Polyethylene Glycol 17 GM DAILY 02/25 1438 AC 03/01 PO 0857 Potassium Chloride 40 MEQ BID 03/01 0900 AC 03/01 PO 03/01 210 0857 Potassium Chloride 40 MEQ ONCE ONE 02/28 1330 DC 02/28 PO 02/28 1331 1331 Senna 187 MG AT BEDTIME 02/25 2100 AC 02/26 PO 2203 Simethicone 40 MG Q4P PRN 02/26 1515 AC PO Trimethobenzamide HCl 200 MG 4 TIMES/DAY PRN 02/26 1345 AC 02/26 IM 1338 Vitamin A/Vitamin D 1 GEOVANNY DAILY 02/26 0900 03/01 TOP 0905 Laboratory Tests 03/01/18 0430: Anion Gap 11, Estimated GFR > 60, Glucose 186 H, Calcium 7.6 L, Phosphorus 3.1 , Magnesium 1.7, Total Bilirubin 0.7, AST 82 H, ALT 69, Albumin 2.2 L, CBC w Diff NO MAN DIFF REQ, RBC 3.65 L, MCV 84.5, MCH 28.0, MCHC 33.1, RDW 17.4 H, MPV 9.4, Gran % 79.3 H, Lymphocytes % 13.3 L, Monocytes % 6.7, Eosinophils % 0.7, Basophils % 0, Absolute Granulocytes 8.6 H, Absolute Lymphocytes 1.4, Absolute Monocytes 0.7 H, Absolute Eosinophils 0.1, Absolute Basophils 0 02/28/18 0500: Anion Gap 13, Estimated GFR > 60, Glucose 230 H, Calcium 8.0 L, Phosphorus 2.9 , Magnesium 1.8, Total Bilirubin 1.0, AST 98 H, ALT 89 H, C-Reactive Prot, Quant > 9.0 H, Albumin 2.6 L, CBC w Diff MAN DIFF ORDERED, RBC 4.16 L, MCV 85.0, MCH 27.7, MCHC 32.5 L, RDW 17.3 H, MPV 9.7, Gran % 82.9 H, Lymphocytes % 14.9 L, Monocytes % 1.5 L, Eosinophils % 0.7, Basophils % 0, Absolute Granulocytes 7.4 H, Segmented Neutrophils 65, Band Neutrophils 2, Absolute Lymphocytes 1.3, Lymphocytes 27, Monocytes 4, Absolute Monocytes 0.1, Eosinophils 2, Absolute Eosinophils 0.1, Absolute Basophils 0, Platelet Estimate ADEQUATE, Hypochromic-Microcytic 1+, Ovalocytes FEW, EUNICE Titer Pending, Anti- Nuclear Antibody Pending, Fld Total RBCs Counted 100 02/27/18 0430: Anion Gap 9, Estimated GFR > 60, Glucose 298 H, Calcium 7.6 L, Phosphorus 1.9 L, Magnesium 2.0, Total Bilirubin 0.6, AST 111 H, ALT 81 H, Albumin 2.2 L, TSH 4.860 H, Free T4 1.16, CBC w Diff MAN DIFF ORDERED, RBC 3.43 L, MCV 86.1, MCH 28.3, MCHC 32.8 L, RDW 17.5 H, MPV 9.4, Gran % 88.1 H, Lymphocytes % 7.3 L, Monocytes % 3.7, Eosinophils % 0.8, Basophils % 0.1, Absolute Granulocytes 7.5 H, Segmented Neutrophils 82 H, Band Neutrophils 8 H, Absolute Lymphocytes 0.6 L, Lymphocytes 7 L, Monocytes 2, Absolute Monocytes 0.3, Eosinophils 1, Absolute Eosinophils 0.1, Absolute Basophils 0, Platelet Estimate ADEQUATE, Hypochromic-Microcytic 1+, Anisocytosis 1+ 02/26/18 1425: pH 7.56 H, pCO2 25 L, pO2 66 L, HCO3 22, ABG O2 Sat (Measured) 94.0 L, P-50 (Temp Corrected) Y, Carboxyhemoglobin 0.6 L, O2 Concentration % 85%, Temperature 100.8 H, O2 Delivery Method HFNC, Phlebotomy Draw Site LEFT RADIAL Microbiology 02/29 528 LOWER RESP: Respiratory Culture - COLB 02/29 528 LOWER RESP: Gram Stain - COLB 02/28 315 BLOOD: Blood Culture - RECD 02/28 0230 BLOOD: Blood Culture - RECD 02/27 1430 URINE ROUT: Urine Culture - COMP YEAST Microbiology 02/28 05 LOWER RESP: Respiratory Culture - COLB 02/29 528 LOWER RESP: Gram Stain - COLB 02/28 0315 BLOOD: Blood Culture - RECD 02/28 023 BLOOD: Blood Culture - RECD 02/27 1430 URINE ROUT: Urine Culture - COMP YEAST Vital Signs Date Time Temp Pulse Resp B/P B/P Pulse O2 O2 Flow FiO2 Mean Ox Delivery Rate 03/01 0857 103 122/80 03/01 0800 95 Nasal 75% Cannula 03/01 0800 97.8 99 33 132/74 95 Nasal 75% Cannula 03/01 0400 94 Nasal 70% Cannula 03/01 0134 93 Nasal 75% Cannula 03/01 0000 99.5 86 28 150/70 92 Nasal 70% Cannula 03/01 0000 92 Nasal 70% Cannula / 2205 94 Nasal 75% Cannula / 2141 98 28 130/78 05/ 2000 95 Nasal 85% Cannula / 1946 97 Nasal 90% Cannula /20 1625 92 Nasal 90% Cannula 05/20 1600 97.9 93 32 132/92 05/20 1600 94 Nasal 90% Cannula 05/20 1600 97.9 93 32 132/92 94 Nasal 90% Cannula /20 1331 118/72 05/20 1200 97.7 91 26 108/70 05/20 1200 99 Nasal 90% Cannula 05/20 1200 97.7 91 26 108/70 99 Nasal 90% Cannula
[2018-03-01 12:00] VITALS: BP 128/78; BP 140/80
--- NOTE | 2018-03-01 14:38 | PN- Infect Dx ---
Subjective Subjective: T-max 100.2. He complains of fatigue and chronic back pain but does not report any shortness of breath or chest discomfort. Objective Last 24 Hrs of Vital Signs/I&O Vital Signs Date Time Temp Pulse Resp B/P B/P Pulse O2 O2 Flow FiO2 Mean Ox Delivery Rate 03/01 1200 94 Nasal 75% Cannula 03/01 1200 98.4 87 30 140/80 94 Nasal 75% Cannula 03/01 1150 94 Nasal 75% Cannula 03/01 0857 103 122/80 03/01 0800 95 Nasal 75% Cannula 03/01 0800 93 Nasal 75% Cannula 03/01 0800 97.8 99 33 132/74 95 Nasal 75% Cannula 03/01 0400 94 Nasal 70% Cannula 03/01 0134 93 Nasal 75% Cannula 03/01 0000 99.5 86 28 150/70 92 Nasal 70% Cannula 03/01 0000 92 Nasal 70% Cannula 02/28 2205 94 Nasal 75% Cannula 02/28 2141 98 28 130/78 02/28 2000 95 Nasal 85% Cannula 02/28 1946 97 Nasal 90% Cannula 02/28 1625 92 Nasal 90% Cannula 02/28 1600 97.9 93 32 132/92 02/28 1600 94 Nasal 90% Cannula 02/28 1600 97.9 93 32 132/92 94 Nasal 90% Cannula Intake & Output 03/01 1600 03/01 0800 03/01 0000 Intake Total 1010 720 480 Output Total 2300 1260 1800 Balance -1290 -540 -1320 Intake, IV 150 200 120 Intake, Oral 860 520 360 Number 1 Bowel Movements Output, Urine 2300 1260 1800 Physical Exam Other Physical Findings: He is awake and alert in no acute distress on high flow oxygen at 75% Neck right IJ triple lumen catheter with no inflammation at the site Lungs decreased breath sounds bilaterally with scattered crackles Heart regular rhythm with no murmur Abdomen is obese, mildly tender on palpation over the epigastrium and right upper quadrant, with no guarding or rebound, positive bowel sounds; suprapubic catheter with no leakage or inflammation at the site Back minimal left CVA tenderness Extremities trace edema both lower extremities Results Last 24 Hours of Lab Results: Laboratory Tests 03/01 0430 Chemistry Sodium (137 - 145 mmol/L) 137 Potassium (3.5 - 5.1 mmol/L) 3.3 L Chloride (98 - 107 mmol/L) 97 L Carbon Dioxide (22 - 30 mmol/L) 29 Anion Gap (5 - 16) 11 BUN (9 - 20 mg/dL) 13 Creatinine (0.7 - 1.2 mg/dL) 0.6 L Estimated GFR (>60 ml/min) > 60 Glucose (65 - 99 mg/dL) 186 H Calcium (8.4 - 10.2 mg/dL) 7.6 L Phosphorus (2.5 - 4.5 mg/dL) 3.1 Magnesium (1.6 - 2.3 mg/dL) 1.7 Total Bilirubin (0.2 - 1.3 mg/dL) 0.7 AST (17 - 59 U/L) 82 H ALT (21 - 72 U/L) 69 Albumin (3.5 - 5.0 g/dL) 2.2 L Hematology CBC w Diff NO MAN DIFF REQ WBC (4.8 - 10.8 /CUMM) 10.9 H RBC (4.70 - 6.10 /CUMM) 3.65 L Hgb (14.0 - 18.0 G/DL) 10.2 L Hct (42 - 52 %) 30.8 L MCV (80.0 - 94.0 FL) 84.5 MCH (27.0 - 31.0 PG) 28.0 MCHC (33.0 - 37.0 G/DL) 33.1 RDW (11.5 - 14.5 %) 17.4 H Plt Count (130 - 400 /CUMM) 196 MPV (7.4 - 10.4 FL) 9.4 Gran % (42.2 - 75.2 %) 79.3 H Lymphocytes % (20.5 - 51.1 %) 13.3 L Monocytes % (1.7 - 9.3 %) 6.7 Eosinophils % (0 - 5 %) 0.7 Basophils % (0.0 - 2.0 %) 0 Absolute Granulocytes (1.4 - 6.5 /CUMM) 8.6 H Absolute Lymphocytes (1.2 - 3.4 /CUMM) 1.4 Absolute Monocytes (0.10 - 0.60 /CUMM) 0.7 H Absolute Eosinophils (0.0 - 0.7 /CUMM) 0.1 Absolute Basophils (0.0 - 0.2 /CUMM) 0 Last 24 Hours of Fadi Results: Urine culture May 19 greater than 100,000 colonies of yeast Blood cultures February 25 negative Blood cultures February 28 negative Recent Imaging Studies: CT of the abdomen and pelvis February 28 reveals small bilateral pleural effusions with bibasilar densities Chest x-ray February 28 reveals worsening bilateral airspace opacities Assessment/Plan ID Impression: Improved overall, with no further fevers since discontinuation of his SSRIs, suggesting possible drug fever, with his white blood cell count minimally elevated today on Unasyn, Day 7 of treatment for possible sepsis of urologic origin secondary to E. coli and Enterococcus, with decreased left flank tenderness. He remains in respiratory failure, most likely secondary to pulmonary edema, with his recent echocardiogram revealing an ejection fraction of only 25-30%, though he did have a significant diuresis over the past [address] scan of the pelvis did suggest the possibility of an acute, superimposed on chronic, osteomyelitis of the sacrum, with his bone scan unable to be completed, and this can be reattempted once he has clearly stabilized. The candiduria is of unclear significance with the suprapubic catheter in place and would not treat at this time. His suprapubic tube was apparently leaking and has been replaced. Suggestion: 1. Further management of his diuresis per Cardiology 2. Would hold on a repeat bone scan until he has clearly stabilized 3. Would pursue placement of a PICC if he has poor IV access so that the right IJ can be removed 4. Continue Unasyn
[2018-03-01 16:00] VITALS: BP 138/88
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
[2018-03-02] VITALS: BP 132/70
[2018-03-02 06:05] LABS: ABSOLUTE BASOPHIL COUNT 0 /CUMM (0.0-0.2); ABSOLUTE EOSINOPHIL COUNT 0.1 /CUMM (0.0-0.7); ABSOLUTE GRANULOCYTE CT 9.1 /CUMM (1.4-6.5); ABSOLUTE LYMPH COUNT 1.7 /CUMM (1.2-3.4); ABSOLUTE MONOCYTE COUNT 0.9 /CUMM (0.10-0.60); BASOPHIL % 0.3 % (0.0-2.0); EOSINOPHIL % 0.6 % (0-5); GRANULOCYTE % 77.6 % (42.2-75.2); HEMATOCRIT 31.6 % (42-52); MEAN CORPUSCULAR HGB 27.9 PG (27.0-31.0); MEAN CORPUSCULAR HGB CONC 32.7 G/DL (33.0-37.0); MEAN CORPUSCULAR VOLUME 85.3 FL (80.0-94.0); MEAN PLATELET VOLUME 9.1 FL (7.4-10.4); PLATELET COUNT 263 /CUMM (130-400); RBC DISTRIBUTION WIDTH 17.6 % (11.5-14.5); RED BLOOD CELL CT 3.71 /CUMM (4.70-6.10); WHITE BLOOD CELL COUNT 11.8 /CUMM (4.8-10.8)
--- NOTE | 2018-03-02 06:18 | RADIOLOGY REPORT ---
EXAMINATION: XR PORTABLE CHEST CLINICAL INFORMATION: Dyspnea. COMPARISON: Chest x-ray February 27, 2018 TECHNIQUE: Portable frontal view of the chest was obtained. 5:42 AM FINDINGS: Right IJ catheter tip in superior vena cava. There are persistent bilateral airspace opacities. No significant change since February 28, 2018. Airspace opacities are most confluent at the upper lobes but all areas of lung involvement. No large pleural effusion. IMPRESSION: Persistent bilateral extensive airspace opacities similar to the exam of February 28, 2018.
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
--- NOTE | 2018-03-02 09:12 | PN- Att Addend ---
Attending Addendum Attending Brief Note Patient had radiology department to getting a good IV access Vital signs are stable, no fever overnight no major changes on physical , still on oxygen. Intake & Output 03/02 1600 03/02 0400 03/01 1600 03/01 0400 02/28 1600 02/28 0400 Intake Total 901 236 0347 480 1180 1060 Output Total 1760 2100 3560 1800 3000 1950 Balance -1510 -1520 -1830 -1320 -1820 -890 Intake, IV 200 100 350 120 580 120 Intake, Oral 50 480 1380 360 600 940 Number 1 3 3 Bowel Movements Output, Urine 1760 2100 3560 1800 3000 1950 Current Medications Sig/Cynthia Start time Last Medication Dose Route Stop Time Status Admin Acetaminophen 1,000 MG Q6P PRN 02/25 0545 AC 02/28 N/A 1 UNIT IV 0933 Acetaminophen 650 MG Q6P PRN 02/23 1000 AC 03/01 PO 0638 Albuterol Sulfate 3 ML Q6P PRN 02/24 1400 AC 02/28 INH 0824 Ampicillin Sodium/ 3,000 MG Q6 02/25 1800 AC 03/02 Sulbactam Sodium IV 0555 Sodium Chloride 100 ML Docusate Sodium 100 MG DAILY 02/25 1438 AC 03/01 PO 0855 Enoxaparin Sodium 40 MG DAILY 02/24 0900 DC 03/01 SC 0857 Furosemide 20 MG TID 03/01 1400 AC 03/01 IV 2208 Furosemide 20 MG 7:30 AM, & 4:30 PM 02/27 1830 DC 03/01 IV 0805 Gabapentin 300 MG Q6 02/23 1200 AC 03/02 PO 0555 Heparin Sodium 0 .STK-MED ONE 03/02 816 DC (Porcine) IV Heparin Sodium 0 .STK-MED ONE 03/02 815 DC (Porcine) IV Hydromorphone HCl 0.2 MG ONCE PRN 02/23 1815 AC 02/24 IV 0947 Insulin Aspart 0 TIDAC 02/23 1200 AC 03/01 SC 1641 Insulin Detemir 10 UNITS BID 02/25 2100 AC 03/01 SC 2200 Lidocaine 0 .STK-MED ONE 03/02 0816 DC .ROUTE Lidocaine/Epinephrine 0 .STK-MED ONE 03/02 08 DC .ROUTE Lisinopril 10 MG DAILY 02/28 0900 AC 03/01 PO 0857 Magnesium Oxide 400 MG BID 03/02 0900 AC PO 03/02 2101 Magnesium Oxide 400 MG .STK-MED ONE 03/01 1746 DC PO 03/01 174 Metoprolol Tartrate 100 MG BID 02/28 2100 AC 03/01 PO 220 Omeprazole 40 MG DAILY AC 02/24 0700 AC 03/02 PO 0555 Oxycodone HCl 10 MG Q8P PRN 02/27 2115 AC 03/02 PO 0049 Phosphate 250 MG PC AND AT BEDTIME 02/25 1700 DC 03/01 PO 2203 Polyethylene Glycol 17 GM DAILY 02/25 1438 AC 03/01 PO 0857 Potassium Chloride 40 MEQ BID 03/02 0815 DC PO 03/02 0901 Potassium Chloride 40 MEQ BID 03/01 0900 DC 03/01 PO 03/01 2101 220 Senna 187 MG AT BEDTIME 02/25 2100 AC 03/01 PO 220 Simethicone 40 MG Q4P PRN 02/26 1515 AC PO Spironolactone 25 MG DAILY 03/02 0900 AC PO Trimethobenzamide HCl 200 MG 4 TIMES/DAY PRN 02/26 1345 AC 02/26 IM 1338 Vitamin A/Vitamin D 1 GEOVANNY DAILY 02/26 0900 AC 03/01 TOP 0905 Laboratory Tests 03/02/18 0500: Anion Gap 8, Estimated GFR > 60, Glucose 248 H, Calcium 7.4 L, Phosphorus 3.8, Magnesium 1.7, Total Bilirubin 0.5, AST 45, ALT 61, Albumin 2.4 L, CBC w Diff NO MAN DIFF REQ, RBC 3.71 L, MCV 85.3, MCH 27.9, MCHC 32.7 L, RDW 17.6 H, MPV 9.1, Gran % 77.6 H, Lymphocytes % 14.2 L, Monocytes % 7.3, Eosinophils % 0.6, Basophils % 0.3, Absolute Granulocytes 9.1 H, Absolute Lymphocytes 1.7, Absolute Monocytes 0.9 H, Absolute Eosinophils 0.1, Absolute Basophils 0 03/01/18 0430: Anion Gap 11, Estimated GFR > 60, Glucose 186 H, Calcium 7.6 L, Phosphorus 3.1 , Magnesium 1.7, Total Bilirubin 0.7, AST 82 H, ALT 69, Albumin 2.2 L, CBC w Diff NO MAN DIFF REQ, RBC 3.65 L, MCV 84.5, MCH 28.0, MCHC 33.1, RDW 17.4 H, MPV 9.4, Gran % 79.3 H, Lymphocytes % 13.3 L, Monocytes % 6.7, Eosinophils % 0.7, Basophils % 0, Absolute Granulocytes 8.6 H, Absolute Lymphocytes 1.4, Absolute Monocytes 0.7 H, Absolute Eosinophils 0.1, Absolute Basophils 0 02/28/18 0500: Anion Gap 13, Estimated GFR > 60, Glucose 230 H, Calcium 8.0 L, Phosphorus 2.9 , Magnesium 1.8, Total Bilirubin 1.0, AST 98 H, ALT 89 H, C-Reactive Prot, Quant > 9.0 H, Albumin 2.6 L, CBC w Diff MAN DIFF ORDERED, RBC 4.16 L, MCV 85.0, MCH 27.7, MCHC 32.5 L, RDW 17.3 H, MPV 9.7, Gran % 82.9 H, Lymphocytes % 14.9 L, Monocytes % 1.5 L, Eosinophils % 0.7, Basophils % 0, Absolute Granulocytes 7.4 H, Segmented Neutrophils 65, Band Neutrophils 2, Absolute Lymphocytes 1.3, Lymphocytes 27, Monocytes 4, Absolute Monocytes 0.1, Eosinophils 2, Absolute Eosinophils 0.1, Absolute Basophils 0, Platelet Estimate ADEQUATE, Hypochromic-Microcytic 1+, Ovalocytes FEW, EUNICE Titer ND, Anti-Nuclear Antibody NEG 1:40 IFA ASSAY, Fld Total RBCs Counted 100 Microbiology 02/29 528 LOWER RESP: Respiratory Culture - CAN Cancelled: SPECIMEN NOT RECEIVED IN LABORATORY 02/29 528 LOWER RESP: Gram Stain - CAN Cancelled: SPECIMEN NOT RECEIVED IN LABORATORY 02/28 315 BLOOD: Blood Culture - RES 02/28 230 BLOOD: Blood Culture - RES 02/27 1430 URINE ROUT: Urine Culture - COMP YEAST Microbiology 02/29 528 LOWER RESP: Respiratory Culture - CAN Cancelled: SPECIMEN NOT RECEIVED IN LABORATORY 02/29 528 LOWER RESP: Gram Stain - CAN Cancelled: SPECIMEN NOT RECEIVED IN LABORATORY 02/28 315 BLOOD: Blood Culture - RES 02/28 230 BLOOD: Blood Culture - RES 02/27 1430 URINE ROUT: Urine Culture - COMP YEAST Vital Signs Date Time Temp Pulse Resp B/P B/P Pulse O2 O2 Flow FiO2 Mean Ox Delivery Rate 03/02 0800 96 Nasal 70% Cannula 03/02 0400 96 Nasal 70% Cannula 03/02 0022 95 Nasal 70% Cannula 03/02 0000 98.7 83 28 132/70 95 Nasal 70% Cannula 03/02 0000 95 Nasal 70% Cannula 03/01 2220 94 Nasal 70% Cannula 03/01 2202 94 28 139/71 03/01 2000 94 Nasal 70% Cannula 03/01 1950 95 Nasal 70% Cannula 03/01 1619 93 Nasal 75% Cannula 03/01 1600 97 Nasal 75% Cannula 03/01 1600 98.3 93 28 138/88 92 Nasal 75% Cannula 03/01 1200 94 Nasal 75% Cannula 03/01 1200 98.4 87 30 140/80 94 Nasal 75% Cannula 03/01 1150 94 Nasal 75% Cannula Potassium 3.7 chest x-ray today is unchanged from yesterday. White count 11,800 , blood cultures latest still negative will follow IDs recommendations, also check with psychiatry to restart psych meds
--- NOTE | 2018-03-02 09:27 | ULTRASOUND REPORT ---
CLINICAL HISTORY: This patient is a 47-year-old male with a history of poor venous access, who presents to interventional radiology for placement of a double lumen PICC for central venous access. PROCEDURES: 1. Real-time ultrasound-guided access into the right brachial vein after documentation of selected vessel patency, and permanent imaging storing in the patient records. 2. Placement of a PICC. PHYSICIANS: Dr. Emre Girard (attending). The attending radiologist was present during the procedure and related imaging, and reviewed the report. MEDICATIONS: 2 mL of 1% lidocaine SQ. COMPLICATIONS: None. ESTIMATED BLOOD LOSS: <5 mL. SPECIMENS: None. FLUOROSCOPY TIME: 1.2 minutes. DAP: 8.0 uGy-cm PROCEDURE NOTE: Informed consent was obtained from the patient prior to the procedure. During this process, the procedure and potential alternatives were explained along with the intended outcome and benefits. The risks of the procedure, including the possibility of an unsuccessful procedure, as well as the risk of not doing the procedure, were discussed. The patient was given the opportunity to ask questions regarding the procedure and appeared competent to make decisions. A signed consent form documenting this discussion was placed in the medical record. A time-out procedure was performed. The patient was placed supine on the fluoroscopy table. Prior to prepping the patient, a limited sonogram of the right arm was performed to choose appropriate access, and this arm was prepped and draped in the usual sterile fashion. Venous access was achieved into the right brachial vein using ultrasound and fluoroscopic guidance. The 0.018 measuring wire from the PICC was advanced into the cavoatrial junction. The needle was removed and replaced with the peel away sheath. The intravascular length was measured and the catheter was trimmed to the correct length. The inner dilator was removed and the PICC was advanced over the wire into the cavoatrial junction. The peel away sheath and wire were removed. The catheter was tested successfully and secured to the skin with its tip in the cavoatrial junction. A spot image was taken to document final catheter position. The catheter was sterilely dressed in usual fashion with a Biopatch and a Tegaderm. The patient was transferred to recovery in stable condition. FINDINGS: 1. Patent right brachial vein. 2. Successful placement of a 5 Fr double lumen PICC that measures 45 cm in length. IMPRESSION: Successful and uncomplicated placement of a PICC. PLAN: 1. The patient was stable after the procedure and was transferred to the interventional recovery area. The patient will be transferred to the floor. 2. The catheter may be used immediately. No pneumothorax.
[2018-03-02 10:00] VITALS: BP 191/87
[2018-03-02 11:00] VITALS: BP 153/87
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
--- NOTE | 2018-03-02 13:48 | PN- Infect Dx ---
Subjective Subjective: Afebrile. He complains of fatigue. He does not report any shortness of breath or chest pain. He notes minimal left flank pain. Objective Last 24 Hrs of Vital Signs/I&O Vital Signs Date Time Temp Pulse Resp B/P B/P Pulse O2 O2 Flow FiO2 Mean Ox Delivery Rate 03/02 1200 97 Nasal 70% Cannula 03/02 1100 104 23 153/87 91 Nasal 70% Cannula 03/02 1000 98.7 104 25 191/87 92 Nasal 70% Cannula 03/02 0958 102 191/87 03/02 0957 102 191/87 03/02 0800 96 Nasal 70% Cannula 03/02 0400 96 Nasal 70% Cannula 03/02 0022 95 Nasal 70% Cannula 03/02 0000 98.7 83 28 132/70 95 Nasal 70% Cannula 03/02 0000 95 Nasal 70% Cannula 03/01 2220 94 Nasal 70% Cannula 03/01 2202 94 28 139/71 03/01 2000 94 Nasal 70% Cannula 03/01 1950 95 Nasal 70% Cannula 03/01 1619 93 Nasal 75% Cannula 03/01 1600 97 Nasal 75% Cannula 03/01 1600 98.3 93 28 138/88 92 Nasal 75% Cannula Intake & Output 03/02 1600 03/02 0800 03/02 0000 Intake Total 250 580 Output Total 1760 2100 Balance -1510 -1520 Intake, IV 200 100 Intake, Oral 50 480 Output, Urine 1760 2100 Physical Exam Other Physical Findings: He is awake and alert on high flow oxygen at 70% Neck right IJ triple lumen catheter with no inflammation at the site Lungs decreased breath sounds bilaterally Heart regular rhythm with no murmur Abdomen suprapubic catheter in place Back minimal left CVA tenderness Extremities trace edema both lower extremities; PICC in place in the right upper extremity Results Last 24 Hours of Lab Results: Laboratory Tests 03/02 0500 Chemistry Sodium (137 - 145 mmol/L) 135 L Potassium (3.5 - 5.1 mmol/L) 3.7 Chloride (98 - 107 mmol/L) 97 L Carbon Dioxide (22 - 30 mmol/L) 29 Anion Gap (5 - 16) 8 BUN (9 - 20 mg/dL) 14 Creatinine (0.7 - 1.2 mg/dL) 0.6 L Estimated GFR (>60 ml/min) > 60 Glucose (65 - 99 mg/dL) 248 H Calcium (8.4 - 10.2 mg/dL) 7.4 L Phosphorus (2.5 - 4.5 mg/dL) 3.8 Magnesium (1.6 - 2.3 mg/dL) 1.7 Total Bilirubin (0.2 - 1.3 mg/dL) 0.5 AST (17 - 59 U/L) 45 ALT (21 - 72 U/L) 61 Albumin (3.5 - 5.0 g/dL) 2.4 L Hematology CBC w Diff NO MAN DIFF REQ WBC (4.8 - 10.8 /CUMM) 11.8 H RBC (4.70 - 6.10 /CUMM) 3.71 L Hgb (14.0 - 18.0 G/DL) 10.3 L Hct (42 - 52 %) 31.6 L MCV (80.0 - 94.0 FL) 85.3 MCH (27.0 - 31.0 PG) 27.9 MCHC (33.0 - 37.0 G/DL) 32.7 L RDW (11.5 - 14.5 %) 17.6 H Plt Count (130 - 400 /CUMM) 263 MPV (7.4 - 10.4 FL) 9.1 Gran % (42.2 - 75.2 %) 77.6 H Lymphocytes % (20.5 - 51.1 %) 14.2 L Monocytes % (1.7 - 9.3 %) 7.3 Eosinophils % (0 - 5 %) 0.6 Basophils % (0.0 - 2.0 %) 0.3 Absolute Granulocytes (1.4 - 6.5 /CUMM) 9.1 H Absolute Lymphocytes (1.2 - 3.4 /CUMM) 1.7 Absolute Monocytes (0.10 - 0.60 /CUMM) 0.9 H Absolute Eosinophils (0.0 - 0.7 /CUMM) 0.1 Absolute Basophils (0.0 - 0.2 /CUMM) 0 Last 24 Hours of Fadi Results: Blood cultures February 28 negative Recent Imaging Studies: Chest x-ray March 02 persistent bilateral extensive airspace opacities, with slightly improved aeration compared to his previous x-ray Assessment/Plan ID Impression: Overall stable, with temperatures remaining normal but with a slight increase in his white blood cell count, of unclear significance, on Unasyn, Day 8 of treatment for possible sepsis of urologic origin secondary to E. coli and Enterococcus. He remains in respiratory failure, most likely secondary to pulmonary edema, with an ejection fraction of 25-30%, status post a significant diuresis over the past several days. The CT scan of the pelvis did suggest the possibility of an acute, superimposed on chronic, osteomyelitis of the sacrum, and the bone scan can be repeated once he has clearly stabilized. The candiduria is of unclear significance with the suprapubic catheter in place and would not treat at this time. Suggestion: 1. Continue diuresis per Cardiology 2. Remove right IJ triple-lumen catheter 3. Would hold on a repeat bone scan until he has clearly stabilized 4. Continue Unasyn
[2018-03-02 16:00] VITALS: BP 148/82
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
[2018-03-02 23:00] VITALS: BP 126/80
[2018-03-03 05:15] LABS: ABSOLUTE BASOPHIL COUNT 0 /CUMM (0.0-0.2); ABSOLUTE EOSINOPHIL COUNT 0.1 /CUMM (0.0-0.7); ABSOLUTE GRANULOCYTE CT 10.1 /CUMM (1.4-6.5); ABSOLUTE LYMPH COUNT 1.4 /CUMM (1.2-3.4); ABSOLUTE MONOCYTE COUNT 0.7 /CUMM (0.10-0.60); BASOPHIL % 0.1 % (0.0-2.0); EOSINOPHIL % 0.5 % (0-5); GRANULOCYTE % 82.5 % (42.2-75.2); HEMATOCRIT 29.7 % (42-52); MEAN CORPUSCULAR HGB CONC 33.1 G/DL (33.0-37.0); MEAN CORPUSCULAR VOLUME 84.7 FL (80.0-94.0); MEAN PLATELET VOLUME 8.9 FL (7.4-10.4); PLATELET COUNT 299 /CUMM (130-400); RBC DISTRIBUTION WIDTH 16.9 % (11.5-14.5); WHITE BLOOD CELL COUNT 12.2 /CUMM (4.8-10.8)
[2018-03-03 08:00] VITALS: BP 140/68
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
--- NOTE | 2018-03-03 10:00 | PN- Att Addend ---
Attending Addendum Attending Brief Note Patient looking and feeling better. Blood pressures is stable despite down to 4 L of nasal oxygen for better saturations of oxygen. Temp max 99 .2. No major changes on physical psych meds restarted Intake & Output 03/03 1600 03/03 0400 03/02 1600 03/02 0400 03/01 1600 03/01 0400 Intake Total 125 981 8114 580 1730 480 Output Total 2074 1950 3310 2100 3560 1800 Balance -1715 -1100 -1976 -1520 -1830 -1320 Intake, IV 240 130 324 100 350 120 Intake, Oral 018 702 3828 480 1380 360 Number 0 0 1 1 Bowel Movements Output, Urine 2074 1949 3309 2100 3560 1800 Current Medications Sig/Cynthia Start time Last Medication Dose Route Stop Time Status Admin Acetaminophen 650 MG .STK-MED ONE 03/02 2101 DC PO 03/02 210 Acetaminophen 650 MG .STK-MED ONE 03/02 1014 DC PO 03/02 1015 Acetaminophen 1,000 MG Q6P PRN 02/25 0545 02/28 N/A 1 UNIT IV 0933 Acetaminophen 650 MG Q6P PRN 02/23 1000 AC 03/02 PO 210 Albuterol Sulfate 3 ML Q6P PRN 02/24 1400 DC 02/28 INH 0824 Ampicillin Sodium/ 3,000 MG Q6 02/25 1800 AC 03/03 Sulbactam Sodium IV 0523 Sodium Chloride 100 ML Docusate Sodium 100 MG DAILY 02/25 1438 AC 03/03 PO 0855 Duloxetine HCl 30 MG DAILY 03/03 0900 AC 03/03 PO 0854 Enoxaparin Sodium 40 MG DAILY 03/03 0900 AC 03/03 SC 0855 Furosemide 20 MG TID 03/01 1400 AC 03/03 IV 0855 Gabapentin 300 MG Q6 02/23 1200 AC 03/03 PO 0524 Hydromorphone HCl 0.2 MG ONCE PRN 02/23 1815 DC 02/24 IV 0947 Insulin Aspart 0 TIDAC 02/23 1200 AC 03/03 SC 0857 Insulin Detemir 10 UNITS BID 02/25 2100 AC 03/03 SC 0856 Lisinopril 10 MG DAILY 02/28 0900 AC 03/03 PO 0855 Magnesium Oxide 400 MG ONE ONE 03/03 0745 DC 03/03 PO 03/03 0746 0907 Magnesium Oxide 400 MG BID 03/02 0900 DC 03/02 PO 03/02 Metoprolol Tartrate 100 MG BID 02/28 2100 AC 03/03 PO 0855 Omeprazole 40 MG DAILY AC 02/24 0700 AC 03/03 PO 0523 Oxycodone HCl 10 MG Q8P PRN 02/27 2115 AC 03/03 PO 0252 Polyethylene Glycol 17 GM DAILY 02/25 1438 AC 03/03 PO 0854 Potassium Chloride 40 MEQ ONCE ONE 03/02 1015 DC 03/02 PO 03/02 1016 1200 Senna 187 MG AT BEDTIME 02/25 2100 AC 03/02 PO 205 Simethicone 40 MG Q4P PRN 02/26 1515 AC PO Spironolactone 25 MG DAILY 03/02 09 AC 03/03 PO 0855 Trimethobenzamide HCl 200 MG 4 TIMES/DAY PRN 02/26 1345 AC 02/26 IM 1338 Vitamin A/Vitamin D 1 GEOVANNY DAILY 02/26 0900 AC 03/03 TOP 0908 Laboratory Tests 03/03/18 0439: RPR Titer/FTA NONREACTIVE 03/03/18 0439: Anion Gap 9, Estimated GFR > 60, Glucose 350 H, Calcium 7.8 L, Phosphorus 4.1, Magnesium 1.6, Total Bilirubin 0.6, AST 41, ALT 45, Creatine Kinase 27 L, Albumin 2.4 L, CBC w Diff NO MAN DIFF REQ, RBC 3.50 L, MCV 84.7, MCH 28.0, MCHC 33.1, RDW 16.9 H, MPV 8.9, Gran % 82.5 H, Lymphocytes % 11.4 L, Monocytes % 5.5, Eosinophils % 0.5, Basophils % 0.1, Absolute Granulocytes 10.1 H, Absolute Lymphocytes 1.4, Absolute Monocytes 0.7 H, Absolute Eosinophils 0.1 , Absolute Basophils 0, Hepatitis A IgM Ab Pending, Hep Bs Antigen Pending, Hep B Core IgM Ab Conf Pending, Hepatitis C Antibody Pending, HIV 1&2 Ab Western Blot Pending 03/02/18 0500: Anion Gap 8, Estimated GFR > 60, Glucose 248 H, Calcium 7.4 L, Phosphorus 3.8, Magnesium 1.7, Total Bilirubin 0.5, AST 45, ALT 61, Albumin 2.4 L, CBC w Diff NO MAN DIFF REQ, RBC 3.71 L, MCV 85.3, MCH 27.9, MCHC 32.7 L, RDW 17.6 H, MPV 9.1, Gran % 77.6 H, Lymphocytes % 14.2 L, Monocytes % 7.3, Eosinophils % 0.6, Basophils % 0.3, Absolute Granulocytes 9.1 H, Absolute Lymphocytes 1.7, Absolute Monocytes 0.9 H, Absolute Eosinophils 0.1, Absolute Basophils 0 03/01/18 0430: Anion Gap 11, Estimated GFR > 60, Glucose 186 H, Calcium 7.6 L, Phosphorus 3.1 , Magnesium 1.7, Total Bilirubin 0.7, AST 82 H, ALT 69, Albumin 2.2 L, CBC w Diff NO MAN DIFF REQ, RBC 3.65 L, MCV 84.5, MCH 28.0, MCHC 33.1, RDW 17.4 H, MPV 9.4, Gran % 79.3 H, Lymphocytes % 13.3 L, Monocytes % 6.7, Eosinophils % 0.7, Basophils % 0, Absolute Granulocytes 8.6 H, Absolute Lymphocytes 1.4, Absolute Monocytes 0.7 H, Absolute Eosinophils 0.1, Absolute Basophils 0 Microbiology 03/02 1910 LOWER RESP: Respiratory Culture - RES YEAST 03/02 1910 LOWER RESP: Gram Stain - RES 03/02 1457 CATH TIP: Catheter Tip Culture - COLB Microbiology 03/02 1910 LOWER RESP: Respiratory Culture - RES YEAST 03/02 1910 LOWER RESP: Gram Stain - RES 03/02 1457 CATH TIP: Catheter Tip Culture - COLB Vital Signs Date Time Temp Pulse Resp B/P B/P Pulse O2 O2 Flow FiO2 Mean Ox Delivery Rate 03/03 0909 96 Nasal 40% Cannula 03/03 0855 75 158/75 03/03 0855 75 158/75 03/03 0800 96.8 73 20 140/68 100 Nasal 45% Cannula 03/03 0400 96 Nasal 55% Cannula 03/03 0104 97 Nasal 55% Cannula 03/03 0000 96 Nasal 55% Cannula 03/02 2301 96 Nasal 55% Cannula 03/02 2300 97.7 84 31 126/80 96 Nasal 55% Cannula 03/026 92 175/74 03/02 2000 96 Nasal 55% Cannula 03/02 1917 96 Nasal 55% Cannula 03/02 1702 Nasal 65% Cannula 03/02 1610 98 Nasal 65% Cannula 03/02 1600 99 Nasal 60% Cannula 03/02 1600 99.2 90 30 148/82 96 Nasal 60% Cannula 03/02 1411 96 Nasal 60% Cannula 03/02 1200 97 Nasal 70% Cannula 03/02 1100 104 23 153/87 91 Nasal 70% Cannula 03/02 1000 98.7 104 25 191/87 92 Nasal 70% Cannula Continue treatments as per consultants follow-up white count which is slightly up.
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
--- NOTE | 2018-03-03 11:34 | PN- Infect Dx ---
Subjective Subjective: Afebrile. He feels improved with decreased shortness of breath. Objective Last 24 Hrs of Vital Signs/I&O Vital Signs Date Time Temp Pulse Resp B/P B/P Pulse O2 O2 Flow FiO2 Mean Ox Delivery Rate 03/03 1057 Nasal 3.0L Cannula 03/03 1045 Nasal 3.0L Cannula 03/03 1026 97 Nasal 4.0L Cannula 03/03 0909 96 Nasal 40% Cannula 03/03 0855 75 158/75 03/03 0855 75 158/75 03/03 0800 96.8 73 20 140/68 100 Nasal 45% Cannula 03/03 0400 96 Nasal 55% Cannula 03/03 0104 97 Nasal 55% Cannula 03/03 0000 96 Nasal 55% Cannula 03/02 2301 96 Nasal 55% Cannula 03/02 2300 97.7 84 31 126/80 96 Nasal 55% Cannula 03/02 2056 92 175/74 03/02 2000 96 Nasal 55% Cannula 03/02 1917 96 Nasal 55% Cannula 03/02 1702 Nasal 65% Cannula 03/02 1610 98 Nasal 65% Cannula 03/02 1600 99 Nasal 60% Cannula 03/02 1600 99.2 90 30 148/82 96 Nasal 60% Cannula 03/02 1411 96 Nasal 60% Cannula 03/02 1200 97 Nasal 70% Cannula Intake & Output 03/03 1600 03/03 0800 03/03 0000 Intake Total 360 850 Output Total 2074 1949 Balance -1715 -1100 Intake, IV 240 130 Intake, Oral 120 720 Number 0 0 Bowel Movements Output, Urine 2074 1949 Physical Exam Other Physical Findings: He appears comfortable in no acute distress, now on 3 L of nasal oxygen Lungs decreased breath sounds bilaterally Heart regular rhythm with no murmur Abdomen is obese, mildly tender on palpation over the epigastrium and right upper quadrant, with positive bowel sounds; suprapubic tube with no inflammation at the site Back no left CVA tenderness Extremities trace edema both lower extremities; PICC iin the right upper extremity with no inflammation at the site Results Last 24 Hours of Lab Results: Laboratory Tests 03/03 03/03 0439 0439 Chemistry Sodium (137 - 145 mmol/L) 132 L Potassium (3.5 - 5.1 mmol/L) 4.1 Chloride (98 - 107 mmol/L) 95 L Carbon Dioxide (22 - 30 mmol/L) 28 Anion Gap (5 - 16) 9 BUN (9 - 20 mg/dL) 15 Creatinine (0.7 - 1.2 mg/dL) 0.5 L Estimated GFR (>60 ml/min) > 60 Glucose (65 - 99 mg/dL) 350 H Calcium (8.4 - 10.2 mg/dL) 7.8 L Phosphorus (2.5 - 4.5 mg/dL) 4.1 Magnesium (1.6 - 2.3 mg/dL) 1.6 Total Bilirubin (0.2 - 1.3 mg/dL) 0.6 AST (17 - 59 U/L) 41 ALT (21 - 72 U/L) 45 Creatine Kinase (55 - 170 U/L) 27 L Albumin (3.5 - 5.0 g/dL) 2.4 L Hematology CBC w Diff NO MAN DIFF REQ WBC (4.8 - 10.8 /CUMM) 12.2 H RBC (4.70 - 6.10 /CUMM) 3.50 L Hgb (14.0 - 18.0 G/DL) 9.8 L Hct (42 - 52 %) 29.7 L MCV (80.0 - 94.0 FL) 84.7 MCH (27.0 - 31.0 PG) 28.0 MCHC (33.0 - 37.0 G/DL) 33.1 RDW (11.5 - 14.5 %) 16.9 H Plt Count (130 - 400 /CUMM) 299 MPV (7.4 - 10.4 FL) 8.9 Gran % (42.2 - 75.2 %) 82.5 H Lymphocytes % (20.5 - 51.1 %) 11.4 L Monocytes % (1.7 - 9.3 %) 5.5 Eosinophils % (0 - 5 %) 0.5 Basophils % (0.0 - 2.0 %) 0.1 Absolute Granulocytes (1.4 - 6.5 /CUMM) 10.1 H Absolute Lymphocytes (1.2 - 3.4 /CUMM) 1.4 Absolute Monocytes (0.10 - 0.60 /CUMM) 0.7 H Absolute Eosinophils (0.0 - 0.7 /CUMM) 0.1 Absolute Basophils (0.0 - 0.2 /CUMM) 0 Serology RPR Titer/FTA (NONREACTIVE) NONREACTIVE Hepatitis A IgM Ab (NONREACTIVE) NONREACTIVE Hep Bs Antigen (NONREACTIVE) NONREACTIVE Hep B Core IgM Ab Conf (NONREACTIVE) NONREACTIVE Hepatitis C Antibody (NONREACTIVE) NONREACTIVE HIV 1&2 Ab Western Blot (NONREACTIVE) NONREACTIVE Last 24 Hours of Fadi Results: Sputum culture March 02 light growth of yeast Blood cultures 2 February 28 negative Assessment/Plan ID Impression: Improved, with decreasing oxygen requirements and with temperatures remaining normal on Unasyn, Day 9 of treatment for presumed sepsis of urologic origin secondary to E. coli and Enterococcus. His white blood cell count remains mildly elevated, of unclear significance. The CT scan of the pelvis did suggest the possibility of an acute, superimposed on chronic, osteomyelitis of the sacrum, and the bone scan can be repeated once he has clearly stabilized. If he requires a biopsy, however, it would need to be done off antibiotics. Suggestion: 1. Continue diuresis per Cardiology 2. Eventual bone scan once he has clearly stabilized 3. Continue Unasyn, with eventual change to Augmentin 875 mg p.o. every 12 hours if he continues to improve
[2018-03-03 12:06] VITALS: BP 128/78
[2018-03-03 16:00] VITALS: BP 150/80
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
[2018-03-04] VITALS: BP 112/60
--- NOTE | 2018-03-04 04:37 | RADIOLOGY REPORT ---
EXAMINATION: XR PORTABLE CHEST CLINICAL INFORMATION: Fluid overload. COMPARISON: Chest x-ray March 02, 2018 TECHNIQUE: Portable frontal view of the chest was obtained. 3:52 AM FINDINGS: Right-sided PICC line catheter tip at caval atrial junction. Lung volume low. Mild central pulmonary vascular prominence. The pulmonary vascularity though has improved significantly since prior exam of March 02, 2018. The extensive bilateral airspace opacity seen on the prior chest x-ray has nearly resolved. No pleural effusion. No pneumothorax. IMPRESSION: Significant reduction of the bilateral airspace opacities and decreased pulmonary vascular congestion compared with the chest x-ray of March 02, 2018.
[2018-03-04 05:09] LABS: ABSOLUTE BASOPHIL COUNT 0 /CUMM (0.0-0.2); ABSOLUTE EOSINOPHIL COUNT 0.1 /CUMM (0.0-0.7); ABSOLUTE GRANULOCYTE CT 9.6 /CUMM (1.4-6.5); ABSOLUTE LYMPH COUNT 1.6 /CUMM (1.2-3.4); ABSOLUTE MONOCYTE COUNT 0.8 /CUMM (0.10-0.60); BASOPHIL % 0.1 % (0.0-2.0); EOSINOPHIL % 0.5 % (0-5); GRANULOCYTE % 79.7 % (42.2-75.2); HEMATOCRIT 29.5 % (42-52); MEAN CORPUSCULAR HGB 28.3 PG (27.0-31.0); MEAN CORPUSCULAR HGB CONC 33.6 G/DL (33.0-37.0); MEAN CORPUSCULAR VOLUME 84.1 FL (80.0-94.0); MEAN PLATELET VOLUME 8.4 FL (7.4-10.4); PLATELET COUNT 331 /CUMM (130-400); RBC DISTRIBUTION WIDTH 17.1 % (11.5-14.5); WHITE BLOOD CELL COUNT 12.1 /CUMM (4.8-10.8)
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
[2018-03-04 08:00] VITALS: BP 140/70
--- NOTE | 2018-03-04 10:03 | PN- Infect Dx ---
Subjective Subjective: Afebrile. He feels improved with decreased pain and decreased shortness of breath Objective Last 24 Hrs of Vital Signs/I&O Vital Signs Date Time Temp Pulse Resp B/P B/P Pulse O2 O2 Flow FiO2 Mean Ox Delivery Rate 03/04 0914 92 152/93 03/04 0912 92 152/78 03/04 0400 96 Nasal 4.0L Cannula 03/04 0000 96 Nasal 4.0L Cannula 03/04 0000 98.3 89 22 112/60 96 Nasal 4.0L Cannula 03/03 2045 96 139/62 03/03 2000 97 Nasal 4.0L Cannula 03/03 1600 94 Nasal 4.0L Cannula 03/03 1600 98.8 104 22 150/80 94 Nasal 4.0L Cannula 03/03 1206 97.3 74 18 128/78 96 Nasal 4.0L Cannula 03/03 1200 96 Nasal 4.0L Cannula 03/03 1057 Nasal 3.0L Cannula 03/03 1045 Nasal 3.0L Cannula 03/03 1026 97 Nasal 4.0L Cannula Intake & Output 03/04 1600 03/04 0800 03/04 0000 Intake Total 660 1580 Output Total 1045 1375 Balance -385 205 Intake, IV 200 100 Intake, Oral 460 1480 Number 1 Bowel Movements Output, Urine 1045 1375 Physical Exam Other Physical Findings: He appears comfortable in no acute distress Lungs decreased breath sounds bilaterally Heart regular rhythm with no murmur Abdomen is obese, soft, mildly tender to palpation over the epigastrium and right upper quadrant, with no guarding or rebound, positive bowel sounds Back no CVA tenderness Extremities trace edema both lower extremities; PICC in the right upper extremity with no inflammation at the site Results Last 24 Hours of Lab Results: Laboratory Tests 03/045 Chemistry Sodium (137 - 145 mmol/L) 131 L Potassium (3.5 - 5.1 mmol/L) 4.1 Chloride (98 - 107 mmol/L) 94 L Carbon Dioxide (22 - 30 mmol/L) 30 Anion Gap (5 - 16) 8 BUN (9 - 20 mg/dL) 14 Creatinine (0.7 - 1.2 mg/dL) 0.6 L Estimated GFR (>60 ml/min) > 60 Glucose (65 - 99 mg/dL) 364 H Calcium (8.4 - 10.2 mg/dL) 7.9 L Phosphorus (2.5 - 4.5 mg/dL) 3.7 Magnesium (1.6 - 2.3 mg/dL) 1.7 Total Bilirubin (0.2 - 1.3 mg/dL) 0.5 AST (17 - 59 U/L) 33 ALT (21 - 72 U/L) 48 Albumin (3.5 - 5.0 g/dL) 2.5 L Hematology CBC w Diff NO MAN DIFF REQ WBC (4.8 - 10.8 /CUMM) 12.1 H RBC (4.70 - 6.10 /CUMM) 3.50 L Hgb (14.0 - 18.0 G/DL) 9.9 L Hct (42 - 52 %) 29.5 L MCV (80.0 - 94.0 FL) 84.1 MCH (27.0 - 31.0 PG) 28.3 MCHC (33.0 - 37.0 G/DL) 33.6 RDW (11.5 - 14.5 %) 17.1 H Plt Count (130 - 400 /CUMM) 331 MPV (7.4 - 10.4 FL) 8.4 Gran % (42.2 - 75.2 %) 79.7 H Lymphocytes % (20.5 - 51.1 %) 13.3 L Monocytes % (1.7 - 9.3 %) 6.4 Eosinophils % (0 - 5 %) 0.5 Basophils % (0.0 - 2.0 %) 0.1 Absolute Granulocytes (1.4 - 6.5 /CUMM) 9.6 H Absolute Lymphocytes (1.2 - 3.4 /CUMM) 1.6 Absolute Monocytes (0.10 - 0.60 /CUMM) 0.8 H Absolute Eosinophils (0.0 - 0.7 /CUMM) 0.1 Absolute Basophils (0.0 - 0.2 /CUMM) 0 Last 24 Hours of Fadi Results: Blood cultures 2 February 28 negative Recent Imaging Studies: Chest x-ray March 04 reveals significant reduction of the bilateral airspace opacities with decreased pulmonary vascular congestion Assessment/Plan ID Impression: Continues to improve, now on 4 L of nasal oxygen, with significant improvement in his chest x-ray with diuresis, and with his temperatures remaining normal on Unasyn, Day 10 of treatment for presumed sepsis of urologic origin secondary to E. coli and Enterococcus. His white blood cell count remains mildly elevated, of unclear significance. The CT scan of the pelvis did suggest the possibility of an acute, superimposed on chronic, osteomyelitis of the sacrum, and the bone scan can be repeated once he has clearly stabilized. If he requires a biopsy, however, it would need to be done off antibiotics. Suggestion: 1. Further management of his diuretics per Cardiology 2. Repeat attempt at bone scan if he remains stable 3. Discontinue Unasyn and begin Augmentin 875 mg p.o. every 12 hours
--- NOTE | 2018-03-04 10:58 | PN- Att Addend ---
Attending Addendum Attending Brief Note Patient looking and feeling better today Vital signs are stable no fever and no new changes on physical oxygenation improved white count 12.1 hemoglobin 9.9 hematocrit 29.5 and platelets 331,000 and kidney function within normal limits Appreciate infectious diseases input and recommendations will switch to by mouth antibiotics okay to transfer out of the intensive care unit. Continue observation, follow-up cultures. Intake & Output 03/04 1600 03/04 0400 03/03 1600 03/03 0400 03/02 1600 03/02 040 Intake Total 660 1580 2020 850 1334 580 Output Total 1045 1375 4550 1950 3310 2100 Balance -385 205 -2530 -1100 -1975 -1520 Intake, IV 200 100 460 130 324 100 Intake, Oral 460 1480 6740 465 7611 480 Number 1 2 0 1 Bowel Movements Output, Urine 1045 1375 4550 1950 3310 2100 Current Medications Sig/Cynthia Start time Last Medication Dose Route Stop Time Status Admin Acetaminophen 650 MG .STK-MED ONE 03/03 1511 DC PO 03/03 1512 Acetaminophen 1,000 MG Q6P PRN 02/25 0545 AC 02/28 N/A 1 UNIT IV 0933 Acetaminophen 650 MG Q6P PRN 02/23 1000 AC 03/03 PO 1523 Amoxicillin/ 875 MG Q12 03/04 0930 AC Clavulanate Potassium PO Ampicillin Sodium/ 3,000 MG Q6 02/25 1800 DC 03/04 Sulbactam Sodium IV 0637 Sodium Chloride 100 ML Docusate Sodium 100 MG DAILY 02/25 1438 AC 03/04 PO 0912 Duloxetine HCl 30 MG DAILY 03/03 0900 AC 03/04 PO 0912 Enoxaparin Sodium 40 MG DAILY 03/03 0900 AC 03/04 SC 0913 Furosemide 20 MG TID 03/01 1400 AC 03/04 IV 0914 Gabapentin 300 MG Q6 02/23 1200 AC 03/04 PO 0636 Insulin Aspart 15 UNITS ONCE ONE 03/03 1730 DC 03/03 SC 03/03 1731 1740 Insulin Aspart 0 TIDAC 03/03 1700 AC 03/04 SC 0910 Insulin Aspart 0 TIDAC 02/23 1200 DC 03/03 SC 0857 Insulin Detemir 20 UNITS BID 03/03 2100 AC 03/04 SC 0911 Insulin Detemir 10 UNITS BID 02/25 2100 DC 03/03 SC 0856 Lisinopril 10 MG DAILY 02/28 09 AC 03/04 PO 0912 Magnesium Oxide 400 MG ONE ONE 03/04 1700 AC PO 03/04 1701 Magnesium Oxide 400 MG DAILY 03/04 09 AC 03/04 PO 09 Magnesium Sulfate 1 GM ONCE ONE 03/03 1230 DC 03/03 Dextrose/Water 100 ML IV 03/03 1629 1030 Metoprolol Tartrate 100 MG BID 02/28 2100 AC 03/04 PO 0914 Omeprazole 40 MG DAILY AC 02/24 0700 AC 03/04 PO 0636 Oxycodone HCl 10 MG Q8P PRN 02/27 2115 AC 03/04 PO 0311 Polyethylene Glycol 17 GM DAILY PRN 03/03 1141 AC PO Polyethylene Glycol 17 GM DAILY 02/25 1438 DC 03/03 PO 0854 Senna 187 MG BID 03/03 2100 AC 03/04 PO 09 Senna 187 MG AT BEDTIME 02/25 2100 DC 03/02 PO 2056 Simethicone 40 MG Q4P PRN 02/26 1515 AC PO Spironolactone 25 MG DAILY 03/02 09 AC 03/04 PO 0912 Trimethobenzamide HCl 200 MG 4 TIMES/DAY PRN 02/26 1345 AC 02/26 IM 1338 Vitamin A/Vitamin D 1 GEOVANNY DAILY 02/26 09 AC 03/03 TOP 0908 Laboratory Tests 03/04/18 0415: Anion Gap 8, Estimated GFR > 60, Glucose 364 H, Calcium 7.9 L, Phosphorus 3.7, Magnesium 1.7, Total Bilirubin 0.5, AST 33, ALT 48, Albumin 2.5 L, CBC w Diff NO MAN DIFF REQ, RBC 3.50 L, MCV 84.1, MCH 28.3, MCHC 33.6, RDW 17.1 H, MPV 8.4, Gran % 79.7 H, Lymphocytes % 13.3 L, Monocytes % 6.4, Eosinophils % 0.5, Basophils % 0.1, Absolute Granulocytes 9.6 H, Absolute Lymphocytes 1.6, Absolute Monocytes 0.8 H, Absolute Eosinophils 0.1, Absolute Basophils 0 03/03/18438: RPR Titer/FTA NONREACTIVE 03/03/18438: Anion Gap 9, Estimated GFR > 60, Glucose 350 H, Calcium 7.8 L, Phosphorus 4.1, Magnesium 1.6, Total Bilirubin 0.6, AST 41, ALT 45, Creatine Kinase 27 L, Albumin 2.4 L, CBC w Diff NO MAN DIFF REQ, RBC 3.50 L, MCV 84.7, MCH 28.0, MCHC 33.1, RDW 16.9 H, MPV 8.9, Gran % 82.5 H, Lymphocytes % 11.4 L, Monocytes % 5.5, Eosinophils % 0.5, Basophils % 0.1, Absolute Granulocytes 10.1 H, Absolute Lymphocytes 1.4, Absolute Monocytes 0.7 H, Absolute Eosinophils 0.1 , Absolute Basophils 0, Hepatitis A IgM Ab NONREACTIVE, Hep Bs Antigen NONREACTIVE, Hep B Core IgM Ab Conf NONREACTIVE, Hepatitis C Antibody NONREACTIVE, HIV 1&2 Ab Western Blot NONREACTIVE 03/02/18 0500: Anion Gap 8, Estimated GFR > 60, Glucose 248 H, Calcium 7.4 L, Phosphorus 3.8, Magnesium 1.7, Total Bilirubin 0.5, AST 45, ALT 61, Albumin 2.4 L, CBC w Diff NO MAN DIFF REQ, RBC 3.71 L, MCV 85.3, MCH 27.9, MCHC 32.7 L, RDW 17.6 H, MPV 9.1, Gran % 77.6 H, Lymphocytes % 14.2 L, Monocytes % 7.3, Eosinophils % 0.6, Basophils % 0.3, Absolute Granulocytes 9.1 H, Absolute Lymphocytes 1.7, Absolute Monocytes 0.9 H, Absolute Eosinophils 0.1, Absolute Basophils 0 Microbiology 03/02 1910 LOWER RESP: Respiratory Culture - RES YEAST 03/02 1910 LOWER RESP: Gram Stain - RES 03/02 1457 CATH TIP: Catheter Tip Culture - CAN Cancelled: SPECIMEN NOT RECEIVED IN LABORATORY Microbiology 03/02 1910 LOWER RESP: Respiratory Culture - RES YEAST 03/02 1910 LOWER RESP: Gram Stain - RES 03/02 1457 CATH TIP: Catheter Tip Culture - CAN Cancelled: SPECIMEN NOT RECEIVED IN LABORATORY Vital Signs Date Time Temp Pulse Resp B/P B/P Pulse O2 O2 Flow FiO2 Mean Ox Delivery Rate 03/04 0914 92 152/93 03/04 0912 92 152/78 03/04 0400 96 Nasal 4.0L Cannula 03/04 0000 96 Nasal 4.0L Cannula 03/04 0000 98.3 89 22 112/60 96 Nasal 4.0L Cannula 03/03 2045 96 139/62 03/03 2000 97 Nasal 4.0L Cannula 03/03 1600 94 Nasal 4.0L Cannula 03/03 1600 98.8 104 22 150/80 94 Nasal 4.0L Cannula 03/03 1206 97.3 74 18 128/78 96 Nasal 4.0L Cannula 03/03 1200 96 Nasal 4.0L Cannula
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
[2018-03-04 16:00] VITALS: BP 150/80
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
[2018-03-05] VITALS: BP 110/60
[2018-03-05 05:17] LABS: ABSOLUTE BASOPHIL COUNT 0 /CUMM (0.0-0.2); ABSOLUTE EOSINOPHIL COUNT 0.1 /CUMM (0.0-0.7); ABSOLUTE GRANULOCYTE CT 9.8 /CUMM (1.4-6.5); ABSOLUTE LYMPH COUNT 1.3 /CUMM (1.2-3.4); ABSOLUTE MONOCYTE COUNT 0.8 /CUMM (0.10-0.60); BASOPHIL % 0.2 % (0.0-2.0); EOSINOPHIL % 0.5 % (0-5); GRANULOCYTE % 81.8 % (42.2-75.2); HEMATOCRIT 29.9 % (42-52); MEAN CORPUSCULAR HGB 28.2 PG (27.0-31.0); MEAN CORPUSCULAR HGB CONC 33.3 G/DL (33.0-37.0); MEAN CORPUSCULAR VOLUME 84.5 FL (80.0-94.0); MEAN PLATELET VOLUME 8.4 FL (7.4-10.4); PLATELET COUNT 401 /CUMM (130-400); RBC DISTRIBUTION WIDTH 17.4 % (11.5-14.5); RED BLOOD CELL CT 3.53 /CUMM (4.70-6.10)
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
[2018-03-05 08:00] VITALS: BP 136/70
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
--- NOTE | 2018-03-05 10:14 | PN- Infect Dx ---
Subjective Subjective: Afebrile without complaints Objective Last 24 Hrs of Vital Signs/I&O Vital Signs Date Time Temp Pulse Resp B/P B/P Pulse O2 O2 Flow FiO2 Mean Ox Delivery Rate 03/05 0832 76 116/63 03/05 0832 76 11663 03/05 0400 95 Nasal 4.0L Cannula 03/05 0000 94 Nasal 4.0L Cannula 03/05 0000 99.4 92 20 110/60 94 Nasal 4.0L Cannula 03/04 2201 86 20 140/72 03/04 2000 97 Nasal 4.0L Cannula 03/04 1600 96 Nasal 4.0L Cannula 03/04 1600 96.9 74 18 150/80 95 Nasal 4.0L Cannula 03/04 1200 98 Nasal 4.0L Cannula Intake & Output 03/05 1600 03/05 0800 03/05 0000 Intake Total 720 620 Output Total 1780 1580 Balance -1060 -960 Intake, Oral 720 620 Output, Urine 1780 1580 Physical Exam Other Physical Findings: He appears comfortable in no acute distress Lungs decreased breath sounds bilaterally Heart regular rhythm with no murmur Abdomen is obese, soft, minimally tender over the epigastrium and right upper quadrant, with no guarding or rebound, positive bowel sounds; suprapubic tube in place with no inflammation at the site Back no CVA tenderness Extremities no cyanosis, clubbing or edema; PICC in the right upper extremity with no inflammation at the site Results Last 24 Hours of Lab Results: Laboratory Tests 03/05 0430 Chemistry Sodium (137 - 145 mmol/L) 132 L Potassium (3.5 - 5.1 mmol/L) 4.4 Chloride (98 - 107 mmol/L) 94 L Carbon Dioxide (22 - 30 mmol/L) 28 Anion Gap (5 - 16) 9 BUN (9 - 20 mg/dL) 13 Creatinine (0.7 - 1.2 mg/dL) 0.6 L Estimated GFR (>60 ml/min) > 60 Glucose (65 - 99 mg/dL) 338 H Calcium (8.4 - 10.2 mg/dL) 8.3 L Phosphorus (2.5 - 4.5 mg/dL) 3.7 Magnesium (1.6 - 2.3 mg/dL) 1.8 Total Bilirubin (0.2 - 1.3 mg/dL) 0.4 AST (17 - 59 U/L) 42 ALT (21 - 72 U/L) 52 Albumin (3.5 - 5.0 g/dL) 2.6 L Hematology CBC w Diff NO MAN DIFF REQ WBC (4.8 - 10.8 /CUMM) 12.0 H RBC (4.70 - 6.10 /CUMM) 3.53 L Hgb (14.0 - 18.0 G/DL) 9.9 L Hct (42 - 52 %) 29.9 L MCV (80.0 - 94.0 FL) 84.5 MCH (27.0 - 31.0 PG) 28.2 MCHC (33.0 - 37.0 G/DL) 33.3 RDW (11.5 - 14.5 %) 17.4 H Plt Count (130 - 400 /CUMM) 401 H MPV (7.4 - 10.4 FL) 8.4 Gran % (42.2 - 75.2 %) 81.8 H Lymphocytes % (20.5 - 51.1 %) 11.0 L Monocytes % (1.7 - 9.3 %) 6.5 Eosinophils % (0 - 5 %) 0.5 Basophils % (0.0 - 2.0 %) 0.2 Absolute Granulocytes (1.4 - 6.5 /CUMM) 9.8 H Absolute Lymphocytes (1.2 - 3.4 /CUMM) 1.3 Absolute Monocytes (0.10 - 0.60 /CUMM) 0.8 H Absolute Eosinophils (0.0 - 0.7 /CUMM) 0.1 Absolute Basophils (0.0 - 0.2 /CUMM) 0 Last 24 Hours of Fadi Results: No recent cultures Assessment/Plan ID Impression: Overall improved, though he remains on 4 L of oxygen, presumably secondary to pulmonary vascular congestion, with his recent chest x-ray significantly improved. He remains afebrile with his white blood cell count still minimally elevated, of unclear significance, now on Augmentin, Day 11 of treatment for presumed sepsis of urologic origin secondary to E. coli and Enterococcus. The CT scan of the pelvis did suggest the possibility of an acute, superimposed on chronic, osteomyelitis of the sacrum, and further workup, for example with a bone scan, can be pursued as an outpatient. Suggestion: 1. Could pursue bone scan as an outpatient 2. Remove PICC prior to discharge 3. Continue Augmentin for 3 more days
--- NOTE | 2018-03-05 11:33 | PN- Psychiatry ---
Assessment/Plan Impression: Pt is a 47 y/o M previously seen by psychiatry. Please see previous note for details. On follow up Luigi endorses persistent depression. He was started on medications in the [place] several months ago and has no outpatient follow up. He is not suicidal. On exam, pt is a middle aged male sitting up in bed in [facility]. He is alert and oriented. Speech is soft and slow. Psychomotor slowing. Pt is paraplegic, no other movement abnormalities. Mood is depressed affect is congruent, constricted. Thought process linear, thought content no delusions, SI or HI. Insight seems fair and judgment to treat is good. A/ 47 y/o M with multiple medical problems with MDD P/ -Push his cymbalta to 60 mg qDaily -He needs to follow up with psych in [facility] for titration and monitoring of his symptoms -Outpatient psych intake March 25 12:45 pm [address]. Please put this on his d/c summary [id number] #[id number] Suggestion: see imp Subjective Subjective: see imp Objective Last 24 Hrs of Vital Signs/I&O Vital Signs Date Time Temp Pulse Resp B/P B/P Pulse O2 O2 Flow FiO2 Mean Ox Delivery Rate 03/05 0832 76 116/63 03/05 0832 76 116/63 03/05 0400 95 Nasal 4.0L Cannula 03/05 0000 94 Nasal 4.0L Cannula 03/05 0000 99.4 92 20 110/60 94 Nasal 4.0L Cannula 03/04 2201 86 20 140/72 03/04 2000 97 Nasal 4.0L Cannula 03/04 1600 96 Nasal 4.0L Cannula 03/04 1600 96.9 74 18 150/80 95 Nasal 4.0L Cannula 03/04 1200 98 Nasal 4.0L Cannula Intake & Output 03/05 1600 03/05 0800 03/05 0000 Intake Total 720 620 Output Total 1780 1580 Balance -1060 -960 Intake, Oral 720 620 Output, Urine 1780 1580
--- NOTE | 2018-03-05 12:50 | Patient Discharge Instructions ---
Discharge Instructions General Discharge Information Special Instructions: Please follow up with your pcp in 1-2 weeks. Please contact your pcp about an outpatient bone scan for possible osteomyelitis. Please follow up with your new pharmaceutical officer in 1 week. We have given you information for Dr. Metzger. Please follow up with your urologist in 1-2 weeks. Please follow up with psychiatry [facility] Outpatient psych March 25 12:45 pm [address], [place] Please continue visiting the wound care center. Acute Coronary Syndrome Inclusion Criteria At DC or during hospital stay patient has or had the following: ACS DIAGNOSIS No Discharge Core Measures Meds if any: Prescribed or Continued at Discharge Meds if any: NOT Prescribed or Continued at Discharge Congestive Heart Failure Inclusion Criteria At DC or during hospital stay patient has or had the following: CHF DIAGNOSIS Yes Discharge Core Measures Meds if any: Prescribed or Continued at Discharge Meds if any: NOT Prescribed or Continued at Discharge Cerebrovascular accident Inclusion Criteria At DC or during hospital stay patient has or had the following: CVA/TIA Diagnosis No Discharge Core Measures Meds if any: Prescribed or Continued at Discharge Meds if any: NOT Prescribed or Continued at Discharge Venous thromboembolism Inclusion Criteria VTE Diagnosis No VTE Type NONE VTE Confirmed by (Test) NONE Discharge Core Measures - Per Current guidelines, there needs to be overlap - treatment for the first 5 days of Warfarin therapy. - If discharged on Warfarin prior to 5 days of - overlap therapy, the patient will need to be - assessed for post discharge needs including - *Post discharge parental anticoagulation - *Warfarin and/or parental anticoagulation education - *Follow up date to check INR post discharge At least 5 days overlap therapy as Inpatient No Meds if any: Prescribed or Continued at Discharge Note: Overlap Therapy is Warfarin and Anticoagulant Meds if any: NOT Prescribed or Continued at Discharge
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
--- NOTE | 2018-03-05 15:53 | ECHOCARDIOGRAM REPORT ---
PEDRO NGUYỄN Age: 47 : 1970 Gender: M Exam Date: 03/05/2018 08:21 Exam Location: [facility] Ht (in): 67 Wt (lb): 232 BSA: 2.27 BP: 152 / 93 Ordering Physician: Dany Corbett MD Referring Physician: Dany Corbett MD Technologist: Balta Mendoza RDCS Room Number: Indications: HEART FAILURE Rhythm: Sinus Technical Quality: Fair FINDINGS Left Ventricle Limited study to reassess left ventricular function. Normal size left ventricle. Mild concentric left ventricular hypertrophy. No obvious regional wall motion abnormalities. Normal left ventricular ejection fraction visually estimated at >55%. Normal left ventricular diastolic filling pattern for age. Right Ventricle Normal right ventricular size and function. Right Atrium Normal right atrial size. Left Atrium Normal left atrial size. Mitral Valve Structurally normal mitral valve. Trace mitral regurgitation. Aortic Valve Structurally normal trileaflet aortic valve. No aortic valve regurgitation. Tricuspid Valve Structurally normal tricuspid valve. No tricuspid regurgitation. Pulmonic Valve Pulmonic valve not well visualized, grossly normal. No pulmonic regurgitation. Pericardium No pericardial effusion. Great Vessels Grossly normal size aortic root. CONCLUSIONS Limited study to reassess left ventricular function. Normal size left ventricle. Mild concentric left ventricular hypertrophy. No obvious regional wall motion abnormalities. Normal left ventricular ejection fraction visually estimated at > 55%.Limited study to reassess left ventricular function. Significantly improved left ventricular function, which is now in the normal range, when compared to previous echocardiogram performed on 02/25/2018. Waqar Metzger M.D. (Electronically Signed) Final Date: 05 Mar 2018 15:53 MEASUREMENTS (Male / Female) Normal Values 2D ECHO LV Diastolic Diameter PLAX 4.9 cm 4.2 - 5.9 / 3.9 - 5.3 cm LV Systolic Diameter PLAX 3.0 cm 2.1 - 4.0 cm LV Fractional Shortening PLAX 38.8 % 25 - 46 % LV Ejection Fraction 2D Teich 69.0 % IVS Diastolic Thickness 1.2 cm LVPW Diastolic Thickness 1.2 cm LV Relative Wall Thickness 0.5 RV Internal Dim ED PLAX 3.5 cm 1.9 - 3.8 cm
[2018-03-05 16:00] VITALS: BP 110/70
--- NOTE | 2018-03-05 22:10 | PN- Att Addend ---
Attending Addendum Attending Brief Note Patient looking and feeling better. Now with telemetry hold. His vital signs are stable oxygenation is improved, no major changes on physical, last white count 12,000 appreciate cardiology's and infectious diseases recommendations and inputs. Antibiotic therapy continue medications as recommended by cardiology Intake & Output 03/05 1600 03/05 0400 03/04 1600 03/04 0400 03/03 1600 03/03 0400 Intake Total 4826 587 5669 1580 2020 850 Output Total 3380 1580 3045 1375 4550 1950 Balance -1460 -960 -985 205 -2530 -1100 Intake, IV 200 100 460 130 Intake, Oral 4184 801 0048 1480 1560 720 Number 1 1 1 2 0 Bowel Movements Output, Urine 3380 1580 3045 1375 4550 1950 Current Medications Sig/Cynthia Start time Last Medication Dose Route Stop Time Status Admin Acetaminophen 650 MG .STK-MED ONE 03/05 0845 DC PO 03/05 0846 Acetaminophen 1,000 MG Q6P PRN 02/25 0545 02/28 N/A 1 UNIT IV 0933 Acetaminophen 650 MG Q6P PRN 02/23 1000 AC 03/05 PO 0849 Amoxicillin/ 875 MG Q12 03/04 0930 AC 03/05 Clavulanate Potassium PO 2126 Docusate Sodium 100 MG DAILY 02/25 1438 AC 03/05 PO 0832 Duloxetine HCl 60 MG DAILY 03/06 0900 AC PO Duloxetine HCl 30 MG ONCE ONE 03/05 1300 DC 03/05 PO 03/05 1301 1439 Duloxetine HCl 30 MG DAILY 03/03 0900 DC 03/05 PO 0832 Enoxaparin Sodium 40 MG DAILY 03/03 0900 AC 03/05 SC 0831 Furosemide 40 MG DAILY 03/06 0900 AC PO Furosemide 20 MG TID 03/04 1437 DC 03/05 PO 03/05 2100 2124 Gabapentin 300 MG Q6 02/23 1200 AC 03/05 PO 1651 Hydralazine HCl 25 MG TID 03/05 1400 AC 03/05 PO 2124 Insulin Aspart 0 TIDAC 03/03 1700 AC 03/05 SC 1650 Insulin Detemir 40 UNITS BID 03/05 0900 AC 03/05 SC 2123 Insulin Detemir 30 UNITS BID 03/04 2100 DC 03/04 SC 2159 Isosorbide Dinitrate 20 MG TID 03/05 1400 AC 03/05 PO 2123 Lisinopril 10 MG DAILY 02/28 09 AC 03/05 PO 0832 Magnesium Oxide 400 MG BID 03/05 0900 DC 03/05 PO 03/05 Magnesium Oxide 400 MG DAILY 03/04 09 AC 03/05 PO 0833 Metoprolol Tartrate 100 MG BID 02/28 2100 AC 03/05 PO 212 Omeprazole 40 MG DAILY AC 02/24 0700 AC 03/05 PO 0604 Oxycodone HCl 10 MG Q8P PRN 02/27 211 AC 03/05 PO 195 Polyethylene Glycol 17 GM DAILY PRN 03/03 1141 AC PO Senna 187 MG BID 03/03 2100 AC 03/05 PO 0833 Simethicone 40 MG Q4P PRN 02/26 1515 AC PO Spironolactone 25 MG DAILY 03/02 09 AC 03/05 PO 0832 Trimethobenzamide HCl 200 MG 4 TIMES/DAY PRN 02/26 1345 AC 02/26 IM 1338 Vitamin A/Vitamin D 1 GEOVANNY DAILY 02/26 09 AC 03/05 TOP 0834 Laboratory Tests 03/05/18 0430: Anion Gap 9, Estimated GFR > 60, Glucose 338 H, Calcium 8.3 L, Phosphorus 3.7, Magnesium 1.8, Total Bilirubin 0.4, AST 42, ALT 52, Albumin 2.6 L, CBC w Diff NO MAN DIFF REQ, RBC 3.53 L, MCV 84.5, MCH 28.2, MCHC 33.3, RDW 17.4 H, MPV 8.4, Gran % 81.8 H, Lymphocytes % 11.0 L, Monocytes % 6.5, Eosinophils % 0.5, Basophils % 0.2, Absolute Granulocytes 9.8 H, Absolute Lymphocytes 1.3, Absolute Monocytes 0.8 H, Absolute Eosinophils 0.1, Absolute Basophils 0 03/04/18 0415: Anion Gap 8, Estimated GFR > 60, Glucose 364 H, Calcium 7.9 L, Phosphorus 3.7, Magnesium 1.7, Total Bilirubin 0.5, AST 33, ALT 48, Albumin 2.5 L, CBC w Diff NO MAN DIFF REQ, RBC 3.50 L, MCV 84.1, MCH 28.3, MCHC 33.6, RDW 17.1 H, MPV 8.4, Gran % 79.7 H, Lymphocytes % 13.3 L, Monocytes % 6.4, Eosinophils % 0.5, Basophils % 0.1, Absolute Granulocytes 9.6 H, Absolute Lymphocytes 1.6, Absolute Monocytes 0.8 H, Absolute Eosinophils 0.1, Absolute Basophils 0 03/03/18438: RPR Titer/FTA NONREACTIVE 03/03/18438: Anion Gap 9, Estimated GFR > 60, Glucose 350 H, Calcium 7.8 L, Phosphorus 4.1, Magnesium 1.6, Total Bilirubin 0.6, AST 41, ALT 45, Creatine Kinase 27 L, Albumin 2.4 L, CBC w Diff NO MAN DIFF REQ, RBC 3.50 L, MCV 84.7, MCH 28.0, MCHC 33.1, RDW 16.9 H, MPV 8.9, Gran % 82.5 H, Lymphocytes % 11.4 L, Monocytes % 5.5, Eosinophils % 0.5, Basophils % 0.1, Absolute Granulocytes 10.1 H, Absolute Lymphocytes 1.4, Absolute Monocytes 0.7 H, Absolute Eosinophils 0.1 , Absolute Basophils 0, Hepatitis A IgM Ab NONREACTIVE, Hep Bs Antigen NONREACTIVE, Hep B Core IgM Ab Conf NONREACTIVE, Hepatitis C Antibody NONREACTIVE, HIV 1&2 Ab Western Blot NONREACTIVE Vital Signs Date Time Temp Pulse Resp B/P B/P Pulse O2 O2 Flow FiO2 Mean Ox Delivery Rate 03/05 2126 106 139/82 03/05 2124 106 139/82 03/05 2124 106 138/82 03/05 1600 98.5 88 24 110/70 89 Room Air 03/05 1438 80 150/70 03/05 1200 90 03/05 0832 76 116/63 03/05 0832 76 11663 03/05 0800 99.0 76 18 136/70 98 Nasal 4.0L Cannula 03/05 0800 96 Nasal 4.0L Cannula 03/05 0400 95 Nasal 4.0L Cannula 03/05 0000 94 Nasal 4.0L Cannula 03/05 0000 99.4 92 20 110/60 94 Nasal 4.0L Cannula
[2018-03-05 23:12] VITALS: BP 100/60
[2018-03-06 06:39] LABS: ABSOLUTE BASOPHIL COUNT 0 /CUMM (0.0-0.2); ABSOLUTE EOSINOPHIL COUNT 0 /CUMM (0.0-0.7); ABSOLUTE GRANULOCYTE CT 10.2 /CUMM (1.4-6.5); ABSOLUTE LYMPH COUNT 1.4 /CUMM (1.2-3.4); ABSOLUTE MONOCYTE COUNT 0.8 /CUMM (0.10-0.60); BASOPHIL % 0.2 % (0.0-2.0); EOSINOPHIL % 0.2 % (0-5); HEMATOCRIT 28.7 % (42-52); MEAN CORPUSCULAR HGB 28.2 PG (27.0-31.0); MEAN CORPUSCULAR HGB CONC 33.2 G/DL (33.0-37.0); MEAN CORPUSCULAR VOLUME 85.2 FL (80.0-94.0); MEAN PLATELET VOLUME 7.9 FL (7.4-10.4); PLATELET COUNT 478 /CUMM (130-400); RBC DISTRIBUTION WIDTH 16.5 % (11.5-14.5); RED BLOOD CELL CT 3.37 /CUMM (4.70-6.10); WHITE BLOOD CELL COUNT 12.4 /CUMM (4.8-10.8)
[2018-03-06 08:00] VITALS: BP 124/60
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
--- NOTE | 2018-03-06 15:40 | PN- Cardiology ---
Subjective Subjective: * Breathing is improved. No chest discomfort or lightheadedness. * sinus rhythm Objective Vital Signs and I&Os Vital Signs Date Time Temp Pulse Resp B/P B/P Pulse O2 O2 Flow FiO2 Mean Ox Delivery Rate 03/06 0810 80 03/06 0809 80 03/06 0808 81 03/06 0807 79 03/06 0800 90 Room Air 03/06 0800 97.9 80 18 124/60 90 Room Air 03/06 0009 92 Nasal 1.0L Cannula 03/06 0009 86 Room Air Room Air 03/06 0000 92 Nasal 1.0L Cannula 03/05 2312 98.6 99 18 100/60 91 Room Air Room Air 03/05 2126 106 139/82 03/05 212 106 139/82 03/05 2124 106 138/82 03/05 1600 98.5 88 24 110/70 89 Room Air Intake & Output 03/06 1600 03/06 0800 03/06 0000 03/05 1600 03/05 0800 03/05 0000 Intake Total 978 516 4396 720 620 Output Total 487 853 2246 1780 1580 Balance -350 250 -400 -1060 -960 Intake, Oral 608 784 0740 720 620 Number 0 0 1 Bowel Movements Output, Urine 622 568 7416 1780 1580 Physical Exam: General: WD/WN male in NAD; alert and oriented x 3 HEENT: NC/AT, PERRL, EOMI Neck: no JVD Heart: RRR w/o murmur Lungs: clear bilaterally Extremities: no edema Assessment/Plan Assessment/Plan * This patient is stable from a cardiac standpoint without symptoms of myocardial ischemia or decompensated heart failure on his current drug regimen which should continue. Continue telemetry? No
[2018-03-06 16:00] VITALS: BP 122/70
[2018-03-06] MEDS ORDERED: ATORVASTATIN CA40 M1 PO (17:51)
[2018-03-06] MEDS ORDERED: LASIX40 M1 PO (17:51)
[2018-03-06] MEDS ORDERED: LASIX20 M1 PO (17:51)
[2018-03-06] MEDS ORDERED: ALDACTONE25 MG PO (17:51)
[2018-03-06] MEDS ORDERED: HYDRALAZINE HCL25 M1 PO (17:51)
[2018-03-06] MEDS ORDERED: ISOSORBIDE DINI20 M1 PO (17:51)
[2018-03-06] MEDS ORDERED: DULOXETINE HCL60 MG PO (17:51)
[2018-03-06] MEDS ORDERED: MAGNESIUM OXID400 M1 PO (17:57)
--- NOTE | 2018-03-06 18:13 | Discharge Summary ---
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 Valve Structurally normal mitral valve. Trace mitral regurgitation. Aortic Valve Structurally normal trileaflet aortic valve. No aortic valve regurgitation. Tricuspid Valve Structurally normal tricuspid valve. No tricuspid regurgitation. Pulmonic Valve Pulmonic valve not well visualized, grossly normal. No pulmonic regurgitation. Pericardium No pericardial effusion. Great Vessels Grossly normal size aortic root. CONCLUSIONS Limited study to reassess left ventricular function. Normal size left ventricle. Mild concentric left ventricular hypertrophy. No obvious regional wall motion abnormalities. Normal left ventricular ejection fraction visually estimated at > 55%.Limited study to reassess left ventricular function. Significantly improved left ventricular function, which is now in the normal range, when compared to previous echocardiogram performed on 02/25/2018. Waqar Metzger M.D. (Electronically Signed) Final Date: 05 Mar 2018 15:53 Disposition Summary Disposition Principal Diagnosis: Sepsis secondary to cathether associated UTI Additional Diagnosis: 1. 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 Acute hypoxemic resp failure most likely 2/2 to fluid overload due to transient cardiomyopathy/CHF 3. Hematocrit drop most likely secondary to hemorroids in the setting of chronic anemia 4. HTN with hypotensive episode due to overdiuresis 5. Elevated troponins more likely demand ischemia than ACS 6. Electrolyte abnormalities with high anion and gap and lactic acidosis secondary to sepsis 7. Transaminitis and elevated INR possibly due to sepsis vs hepatic congestion 8. Tachycardia 9. Abd distension secondary to constipation 10. Hx of Diabetes 11. Hx of multiple lower extremity wounds 12. Stage 4 Hemorrhoids Discharge Disposition: SNF Discharge Instructions General Discharge Information Code Status: Full Code Patient's Diet: Diabetic Patient's Activity: As tolerated. Paraplegia Follow-Up Instructions/Appts: Please follow up with your pcp in 1-2 weeks. Please contact your pcp about an outpatient bone scan for possible osteomyelitis. Please follow up with your new director web in 1 week. We have given you information for Dr. Metzger. Please follow up with your urologist in 1-2 weeks. Please follow up with psychiatry [facility] Outpatient psych March 25 12:45 pm [address], [place] Please continue visiting the wound care center. Medications at Discharge Discharge Medications: Stop taking the following medications: Escitalopram Oxalate (Escitalopram Oxalate) 20 MG TABLET ORAL DAILY Qty = 30 Amlodipine Besylate (Amlodipine Besylate) 5 MG TABLET ORAL DAILY Insulin Lispro (Humalog) (Unknown Strength) VIAL Inject into fatty tissue SEE SLIDING SCALE Bupropion HCl (Bupropion HCl Sr) 150 MG TABLET.ER ORAL DAILY Qty = 30 Duloxetine HCl (Duloxetine HCl) 30 MG CAPSULE.DR RIVERO 1800 Continue taking these medications: Pantoprazole Sodium (Pantoprazole Sodium) 40 MG TABLET.DR 1 Tablet ORAL DAILY Linagliptin (Tradjenta) 5 MG TABLET 1 Tablet ORAL DAILY Metoprolol Tartrate (Metoprolol Tartrate) 100 MG TABLET 1 Tablet ORAL DAILY Comments: Last Taken:11/06/16 Time:10:15 AM Losartan Potassium (Cozaar) 50 MG TABLET 1 Tablet ORAL DAILY Qty = 30 Insulin Glargine,Hum.rec.anlog (Lantus Solostar) 100 UNIT/ML (3 ML) INSULN.PEN 60 Unit Inject into fatty tissue TWICE DAILY Qty = 30 Fluticasone Propionate (Fluticasone Propionate) 50 MCG/ACTUATION SPRAY.SUSP 2 [place] Both sides of nose DAILY Qty = 48 Ibuprofen (Ibuprofen) 800 MG TABLET 1 Tablet ORAL EVERY 6 HOURS NEEDED as needed for pain Qty = 30 Zolpidem Tartrate (Zolpidem Tartrate) 10 MG TABLET 1 Tablet ORAL Every night as needed as needed for SLEEP Qty = 30 Comments: LAST GIVEN 05/03/17 @ 2200 Gabapentin (Neurontin) 300 MG CAPSULE 1 Capsule ORAL EVERY SIX HOURS Insulin Lispro (Humalog) 100 UNIT/ML VIAL 18 Units Inject into fatty tissue BEFORE MEALS Metformin HCl (Metformin HCl) 500 MG TABLET 1 Tablet ORAL TWICE DAILY Qty = 60 Multivitamin (Daily Multiple Vitamin) 1 EACH TABLET 1 Tablet ORAL DAILY Ascorbate Calcium (Vitamin C) 500 MG TABLET 1 Tablet ORAL TWICE DAILY Oxycodone HCl (Oxycodone HCl) 10 MG TABLET 1 Tablet ORAL EVERY 8 HOURS NEEDED as needed for PAIN Qty = 60 Docusate Sodium (Colace) 100 MG CAPSULE 1 Capsule ORAL DAILY Start taking the following new medications: Atorvastatin Calcium (Atorvastatin Calcium) 40 MG TABLET 1 Tablet ORAL 5 PM Qty = 30 No Refills Hydralazine HCl (Hydralazine HCl) 25 MG TABLET 1 Tablet ORAL THREE TIMES DAILY Qty = 90 No Refills Isosorbide Dinitrate (Isosorbide Dinitrate) 20 MG TABLET 1 Tablet ORAL THREE TIMES DAILY Qty = 90 No Refills Spironolactone (Aldactone) 25 MG TABLET 1 Tablet ORAL DAILY Qty = 30 No Refills Duloxetine HCl (Duloxetine HCl) 60 MG CAPSULE.DR 1 Tablet ORAL DAILY Qty = 30 No Refills Furosemide (Lasix) 40 MG TABLET 1 Tablet ORAL DAILY Qty = 1 No Refills Instructions: PLEASE TAKE ON 03/08 THEN START THE 20MG DAILY TABLET Magnesium Oxide (Magnesium Oxide) 400 MG TABLET 400 Milligram ORAL TWICE DAILY Qty = 30 No Refills Polyethylene Glycol 3350 (Miralax) 17 GRAM/DOSE POWDER 17 Gram ORAL DAILY as needed for CONSTIPATION Qty = 1 No Refills Sennosides/Docusate Sodium (Senna-Time S Tablet) 8.6 MG-50 MG TABLET 1 Tablet ORAL TWICE DAILY as needed for constipation Qty = 30 No Refills Amoxicillin/Clavulanate Potass (Amox-Clav 875-125 MG Tablet) 875 MG-125 MG TABLET 1 Tablet ORAL EVERY 12 HOURS Qty = 2 No Refills Instructions: PLEASE TAKE ON 03/08 Furosemide (Lasix) 20 MG TABLET 1 Tablet ORAL DAILY Qty = 30 No Refills Instructions: PLEASE START ON 03/08/18 Copies To: Brooke MAYORGA,Juan Carlos
[2018-03-06] MEDS ORDERED: SENNA-TIME S T1 EACH PO (20:12)
[2018-03-06] MEDS ORDERED: MIRALAX119 GM PO (20:12)
[2018-03-06] MEDS ORDERED: AMOX-CLAV 875-1 EACH PO (20:32)
[2018-03-07] VITALS: BP 105/54
[2018-03-07 08:00] VITALS: BP 112/60
--- NOTE | 2018-03-07 08:31 | PN- Resident CRCU ---
Subjective HPI/CRCU Issues: Sepsis. 24 Hour Events: Seen and examined at [facility]. Other than the elevated blood glucose, no other acute o/n event. Stable, afebrile and eager for discharge. Objective Vital Signs & I&O Last 8 Hrs of Vitals and I&O: Intake & Output 03/07 1600 03/07 0800 03/07 0000 Intake Total 50 400 Output Total 750 1150 Balance -700 -750 Intake, Oral 50 400 Number 0 Bowel Movements Output, Urine 750 1150 Laboratory Tests 03/07 0743 Chemistry Sodium Cancelled Potassium Cancelled Chloride Cancelled Carbon Dioxide Cancelled Anion Gap Cancelled BUN Cancelled Creatinine Cancelled Glucose Cancelled Calcium Cancelled Phosphorus Cancelled Magnesium Cancelled Total Bilirubin Cancelled AST Cancelled ALT Cancelled Albumin Cancelled Hematology CBC w Diff Cancelled WBC Cancelled RBC Cancelled Hgb Cancelled Hct Cancelled MCV Cancelled MCH Cancelled MCHC Cancelled RDW Cancelled Plt Count Cancelled MPV Cancelled Exam General Appearance: alert, awake, comfortable Other Physical Findings: Respiratory: decerased breath sounds diffusely Cardiovascular: mild tachycardia Gastrointestinal: soft, decreased bowel sounds, distended abd, RUQ tenderness greater than RLQ tenderness Extremities: 1+ LE edema, 2+ radial pulses Current Medications: Current Medications Sig/Cynthia Start time Last Medication Dose Route Stop Time Status Admin Acetaminophen 650 MG .STK-MED ONE 03/07 0018 DC PO 03/07 0019 Acetaminophen 1,000 MG Q6P PRN 02/25 0545 DCD 02/28 N/A 1 UNIT IV 0933 Acetaminophen 650 MG Q6P PRN 02/23 1000 DCD 03/07 PO 0022 Amoxicillin/ 875 MG Q12 03/04 0930 DC 03/06 Clavulanate Potassium PO 03/06 Atorvastatin Calcium 40 MG 1700 03/06 1700 DCD 03/06 PO 1709 Docusate Sodium 100 MG DAILY 02/25 1438 DCD 03/07 PO 1025 Duloxetine HCl 60 MG DAILY 03/06 0900 DCD 03/07 PO 1027 Enoxaparin Sodium 40 MG DAILY 03/03 0900 DCD 03/07 SC 1023 Furosemide 40 MG DAILY 03/06 0900 DCD 03/07 PO 1025 Gabapentin 300 MG Q6 02/23 1200 DCD 03/07 PO 1215 Hydralazine HCl 25 MG TID 03/05 1400 DCD 03/07 PO 1342 Insulin Aspart 7 UNITS ONCE ONE 03/07 0500 DC 03/07 AK 03/07 0501 0514 Insulin Aspart 15 UNITS ONCE ONE 03/07 0245 DC 03/07 AK 03/07 0246 0240 Insulin Aspart 10 UNITS ONCE ONE 03/07 0015 DC 03/07 SC 03/07 0016 0023 Insulin Aspart 6 UNITS ONCE ONE 03/06 2345 DC 03/06 AK 03/06 2346 0004 Insulin Aspart 0 AT BEDTIME 03/06 2100 DCD 03/06 AK 2105 Insulin Aspart 0 TIDAC 03/06 1200 DCD 03/07 AK 1216 Insulin Detemir 60 UNITS BID 03/07 2100 DCD SC Insulin Detemir 50 UNITS BID 03/06 0900 DC 03/07 SC 1030 Isosorbide Dinitrate 20 MG TID 03/05 1400 DCD 03/07 PO 1215 Losartan Potassium 50 MG DAILY 03/07 0900 DCD 03/07 PO 1025 Magnesium Oxide 400 MG BID 03/06 0900 DCD 03/07 PO 1024 Metoprolol Tartrate 100 MG BID 02/28 2100 DCD 03/07 PO 1023 Omeprazole 40 MG DAILY AC 02/24 0700 DCD 03/07 PO 0513 Oxycodone HCl 10 MG Q8P PRN 03/07 0130 DCD 03/07 PO 1342 Oxycodone HCl 10 MG Q8P PRN 02/27 2115 DC 03/06 PO 1940 Polyethylene Glycol 17 GM DAILY PRN 03/03 1141 DCD PO Senna 187 MG BID 03/03 2100 DCD 03/07 PO 1025 Simethicone 40 MG Q4P PRN 02/26 1515 DCD PO Spironolactone 25 MG DAILY 03/02 0900 DCD 03/07 PO 1024 Trimethobenzamide HCl 200 MG 4 TIMES/DAY PRN 02/26 1345 DCD 02/26 IM 1338 Vitamin A/Vitamin D 1 GEOVANNY DAILY 02/26 09 DCD 03/06 TOP 0810 Impression/Plan Impression/Problem List Impression: 47 yo paraplegic, long-term resident of a long-term, neurogenic bladder with suprapubic catheter, significant decubiti ulcer, multiple ulcers in both lower extremities on and off for many years, chronic abdominal discomfort initially came with left-sided acute flank pain, significant fever with elevated liver enzymes and pyuria with initial CT scan suggestive of osteomyelitis and coccyx and sacrum. Treated adequetaly with ABX. Rcvd increase doses of furosemide for his acute worsening chf vs edema. His Blood glucose were elevated during the last few days of hospital stay. His Levemir was increased back to his baseline home dose on discharge date. He is stable and no longer febrile or hypoxic. Will be discharged today back to [facility], Problem List: 1. Sepsis 2. Acute respiratory failure with hypoxia 3. Sacral decubitus ulcer, stage IV Pain Ratin Tomorrow's Labs & Rationales: none-discharge Plan DVT/Prophylaxis: mechanical, pharmacological Code Status: Full Code
[2018-03-07 10:25] VITALS: BP 130/80
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
--- NOTE | 2018-03-07 14:06 | PN- Att Addend ---
Attending Addendum Attending Brief Note Mr. Lu was interviewed and examined. His EMR was reviewed. He states he is in some discomfort today. Tmax 99.6 (at midnight today) heart, respiratory rates, and blood pressures are stable. His physical exam is unchanged. He continues to have a low-grade leukocytosis and stable anemia. His serum glucose levels continue to run high but we are adjusting his insulin regimen. At this time Mr. Lu is stable for transfer to a SNF. His CMR has been reviewed and signed.
== END 2018-03-07 15:59 | DRG 720 ==
LOC: ERH 06:18 → CRI 08:50 → ERHI 08:50 → CRI 08:50 → 2NA 08:50 → EDBEDREQ 09:20 → ENRESERV 09:32 → ENTRNSPT 10:19 → EDTRNSPT 10:23 → EDTRNSPTSTS 10:23 → 2NA 10:32 → CMPTRNSPT 10:54 → CRI 02-24 17:24
PROVIDERS: Pediatrics; Student in an Organized Health Care Education/Training Program
PROC: 05HM33Z Insertion of Infusion Device into Right Internal Jugular Vein, Percutaneous Approach (ICD-10-PCS; principal; 2018-02-25)
PROC: 0T2BX0Z Change Drainage Device in Bladder, External Approach (ICD-10-PCS; 2018-02-27)
PROC: 02HV33Z Insertion of Infusion Device into Superior Vena Cava, Percutaneous Approach (ICD-10-PCS; 2018-03-02)
DX: A41.9 Sepsis, unspecified organism (principal); T83.098A Other mechanical complication of other urinary catheter, initial encounter; I11.0 Hypertensive heart disease with heart failure; I50.31 Acute diastolic (congestive) heart failure; J96.01 Acute respiratory failure with hypoxia; L89.154 Pressure ulcer of sacral region, stage 4; I21.A1 Myocardial infarction type 2; E11.69 Type 2 diabetes mellitus with other specified complication; D64.9 Anemia, unspecified; K59.09 Other constipation; B96.20 Unspecified Escherichia coli [E. coli] as the cause of diseases classified elsewhere; E87.1 Hypo-osmolality and hyponatremia; N39.0 Urinary tract infection, site not specified; B95.2 Enterococcus as the cause of diseases classified elsewhere; T83.038A Leakage of other urinary catheter, initial encounter; G82.20 Paraplegia, unspecified; E87.70 Fluid overload, unspecified; K64.8 Other hemorrhoids; E87.3 Alkalosis; E87.2 Acidosis; K21.9 Gastro-esophageal reflux disease without esophagitis; N31.9 Neuromuscular dysfunction of bladder, unspecified; Z18.10 Retained metal fragments, unspecified; K76.0 Fatty (change of) liver, not elsewhere classified; Y82.8 Other medical devices associated with adverse incidents; Y73.2 Prosthetic and other implants, materials and accessory gastroenterology and urology devices associated with adverse incidents; M54.9 Dorsalgia, unspecified; G89.29 Other chronic pain; L97.828 Non-pressure chronic ulcer of other part of left lower leg with other specified severity; L97.818 Non-pressure chronic ulcer of other part of right lower leg with other specified severity; M86.68 Other chronic osteomyelitis, other site; I42.9 Cardiomyopathy, unspecified
CPT/HCPCS: 2NAP; 87070; 87205; CCU; 36415; 36592; 71045; 74018; 74177; 74178; 77001; 80307; 81001; 82436; 87040; 87086; 87088; 87147; 87389; 93005; 93010; 93306; 93308; 93321; 94799; 96361; 96365; 96375; 99291; A9561; C1769; J0131; J0713; J1170; J1642; J1644; J1650; J1815; J1885; J1940; J2001; J2405; J3250; J3370; J3490; J7040

== ENCOUNTER 2018-03-09 02:58 | Observation (INO) | payer OTHER ==
[~2018-03-09] VITALS: Ht 182.9 cm; Wt 96.6 kg
[~2018-03-09 02:58] MED LIST changes: +ALDACTONE25 MG PO; +AMOX-CLAV 875-1 EACH PO; +ATORVASTATIN CA40 M1 PO; +BUPROPION HCL150 M4 PO; +COLACE100 M1 PO; +DAILY MULTIPLE1 EACH PO; +DULOXETINE HCL30 MG PO; +DULOXETINE HCL60 MG PO; +HUMALOG100 UNIT/2 SC; +HYDRALAZINE HCL25 M1 PO; +ISOSORBIDE DINI20 M1 PO; +LASIX20 M1 PO; +LASIX40 M1 PO; +MAGNESIUM OXID400 M1 PO; +METFORMIN HCL500 M3 PO; +SENNA-TIME S T1 EACH PO; +VITAMIN C500 M6 PO
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
--- NOTE | 2018-03-09 03:25 | RADIOLOGY REPORT ---
EXAMINATION: XR PORTABLE CHEST CLINICAL INFORMATION: Fever COMPARISON: 03/04/2018 TECHNIQUE: Portable frontal view of the chest was obtained. FINDINGS: The lungs are well expanded. There is no focal consolidation, edema, or effusion. No pneumothorax. The cardiomediastinal silhouette is within normal limits. No acute osseous abnormality. IMPRESSION: No acute pulmonary finding.
[2018-03-09 05:49] LABS: ABSOLUTE BASOPHIL COUNT 0.1 /CUMM (0.0-0.2); ABSOLUTE EOSINOPHIL COUNT 0 /CUMM (0.0-0.7); ABSOLUTE GRANULOCYTE CT 9.9 /CUMM (1.4-6.5); ABSOLUTE LYMPH COUNT 1.1 /CUMM (1.2-3.4); ABSOLUTE MONOCYTE COUNT 0.8 /CUMM (0.10-0.60); BASOPHIL % 0.5 % (0.0-2.0); EOSINOPHIL % 0.1 % (0-5); GRANULOCYTE % 83.2 % (42.2-75.2); HEMATOCRIT 25.7 % (42-52); MEAN CORPUSCULAR HGB 28.2 PG (27.0-31.0); MEAN CORPUSCULAR HGB CONC 33.3 G/DL (33.0-37.0); MEAN CORPUSCULAR VOLUME 84.8 FL (80.0-94.0); MEAN PLATELET VOLUME 7.6 FL (7.4-10.4); PLATELET COUNT 570 /CUMM (130-400); RBC DISTRIBUTION WIDTH 16.4 % (11.5-14.5); RED BLOOD CELL CT 3.03 /CUMM (4.70-6.10); WHITE BLOOD CELL COUNT 11.9 /CUMM (4.8-10.8)
[2018-03-09] MEDS ORDERED: ACETAMINOPHEN500 M4 PO (07:09)
[2018-03-09 09:43] VITALS: BP 124/60
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
--- NOTE | 2018-03-09 10:28 | PN- Att Addend ---
Attending Addendum Attending Brief Note Patient was just discharged to the residential couple of days ago, returns again with a fever white count of 11,900 with left shift and what appears by the ER doctor some problem with the decubitus area patient was kept on observation to make sure he doesn't have again probably like osteomyelitis of the decubitus will have infectious diseases evaluate the patient get all the cultures patient got antibiotics in the emergency room Current Medications Sig/Cynthia Start time Last Medication Dose Route Stop Time Status Admin Acetaminophen 650 MG Q8P PRN 03/09 1030 UNVr PO Ascorbic Acid 500 MG BID 03/09 1022 UNVr PO Atorvastatin Calcium 40 MG 1700 03/09 1700 UNVr PO Docusate Sodium 100 MG DAILY 03/09 1004 UNVr PO Duloxetine HCl 60 MG DAILY 03/09 1016 UNVr PO Enoxaparin Sodium 40 MG DAILY 03/09 0951 AC SC Fluticasone 2 SPRAY DAILY 03/09 1004 AC Propionate ABY Furosemide 20 MG DAILY 03/09 1016 UNVr PO Gabapentin 300 MG Q6 03/09 1200 AC PO Hydralazine HCl 25 MG TID 03/09 1015 UNVr PO Ibuprofen 800 MG Q6P PRN 03/09 1015 AC PO Insulin Aspart 0 TIDAC 03/09 1200 UNVr SC Insulin Detemir 60 UNITS BID 03/09 1004 AC SC Isosorbide Dinitrate 20 MG TID 03/09 1400 UNVr PO Losartan Potassium 50 MG DAILY 03/10 0900 AC PO Magnesium Oxide 400 MG BID 03/09 1020 UNVr PO Metoprolol Succinate 100 MG DAILY 03/09 1003 AC PO Multivitamins 1 TAB DAILY 03/10 0900 AC Therapeutic PO Omeprazole 40 MG DAILY AC 03/10 0700 AC PO Oxycodone HCl 10 MG Q6P PRN 03/09 0700 r 03/09 PO 0940 Polyethylene Glycol 17 GM DAILY PRN 03/09 1030 UNVr PO Senna/Docusate Sodium 1 TAB BID PRN 03/09 1030 UNVr PO Sodium Chloride 1,000 ML BOLUS ONE 03/09 0315 DC 03/09 IV 03/09 0414 0425 Spironolactone 25 MG DAILY 03/09 1016 UNVr PO Zolpidem Tartrate 10 MG QPM PRN 03/09 1015 AC PO Laboratory Tests 03/09/18 0653: ESR Westergren Cancelled 03/09/18 0520: Anion Gap 8, Estimated GFR > 60, BUN/Creatinine Ratio 31.7 H, Glucose 378 H, Lactic Acid 0.9, Calcium 9.0, Total Bilirubin 0.5, Direct Bilirubin 0.4, AST 34, ALT 41, Alkaline Phosphatase 155 H, Troponin I < 0.01, Ghz-G-Udzsrnobcdf Pept 165 H, Total Protein 7.1, Albumin 2.5 L, Amylase 39, Lipase 278, CBC w Diff MAN DIFF ORDERED, RBC 3.03 L, MCV 84.8, MCH 28.2, MCHC 33.3, RDW 16.4 H, MPV 7.6, Gran % 83.2 H, Lymphocytes % 9.1 L, Monocytes % 7.1, Eosinophils % 0.1, Basophils % 0.5, Absolute Granulocytes 9.9 H, Segmented Neutrophils 89 H, Absolute Lymphocytes 1.1 L, Lymphocytes 6 L, Monocytes 4, Absolute Monocytes 0.8 H, Absolute Eosinophils 0, Basophils 1, Absolute Basophils 0.1, Platelet Estimate INCREASED, Polychromasia 1+, Poikilocytosis 2+, Ovalocytes 1+, Stomatocytes 1+, ESR Westergren > 130 H, Fld Total RBCs Counted 100 03/09/18 0346: Urinalysis LIGHT H, Urine Color YEL, Urine Clarity TURBD H, Urine pH 6.0, Ur Specific [place] 1.025, Urine Protein 100 H, Urine Ketones NEG, Urine Nitrite NEG, Urine Bilirubin NEG, Urine Urobilinogen 1.0, Ur Leukocyte Esterase NEG, Ur Microscopic SEDIMENT EXAMINED, Urine WBC 1-3 H, Urine Bacteria , Urine Hemoglobin TRACE-INTACT H, Urine Glucose 100 H 03/09/18 0305: Ztu-O-Jynuyodeicw Pept Cancelled Vital Signs Date Time Temp Pulse Resp B/P B/P Pulse O2 O2 Flow FiO2 Mean Ox Delivery Rate 03/09 0943 98.6 99 20 124/60 95 Room Air 03/09 0802 98.2 96 80 126/56 95 Room Air 03/09 0508 98.6 97 20 120/63 94 Room Air 03/09 0407 99.5 03/09 0317 94 Room Air 03/09 0303 100.4 117 20 115/59 94 Room Air Intake & Output 03/09 1600 Intake Total Output Total 450 Balance -450 Output, Urine 450 Patient 213 lb Weight
[2018-03-09 14:19] VITALS: BP 118/76
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
--- NOTE | 2018-03-09 20:15 | NUCLEAR MEDICINE REPORT ---
EXAMINATION: NM BONE SCAN 3 PHASE CLINICAL INFORMATION: Fever in a diabetic with paraplegia. Assess for osteomyelitis of the pelvis/sacrum. COMPARISON: CT scan of the abdomen and pelvis 02/28/2018. TECHNIQUE: Initial rapid sequence images were obtained over the abdomen and pelvis during the bolus injection of 32.2 mCi Tc-99m HDP. Static images of the pelvis lower extremities were then obtained 3.75 hours post injection. FINDINGS: On the flow images, there is moderate increased uptake of activity in the right hip region. On the blood pool images, there is increased uptake noted in the proximal right femur, with milder activity over the acetabulum. There is photopenia between the femur and acetabulum, corresponding to the fluid collection around the right hip joint seen on prior imaging. There is no significant uptake noted in the region of the sacrum. On the delayed static images, there is relatively intense uptake noted in the right proximal femur. This corresponds to the area of irregular bony contour on the CT scan. Moderate activity is also noted along the superior and medial aspects of the right acetabulum. Similar but milder uptake is noted in the left acetabulum and left proximal femur. No abnormal activity is noted in the region of the sacrum. There is mild activity in the bilateral ischial bones, slightly more intense on the right. The patient has a urinary catheter, and the bladder is not filled. Activity is noted within the catheter. There is mild uptake noted in the inferior sacroiliac joints bilaterally, most consistent with degenerative changes. There is mild uptake noted in the bilateral patellae and medial compartments of both knees. Focal intense uptake is noted in the left foot, at the bases of the 1st and 5th metatarsals. Mild activity is also noted along the distal aspect of the left foot. IMPRESSION: 1. There is increased activity noted on all phases in the right acetabulum and right proximal femur, consistent with osteomyelitis. Photopenia between the acetabulum and femur is consistent with fluid previously demonstrated in the right hip joint. 2. Milder uptake is noted in the left hip, but no abnormal activity is seen on the flow or blood pool images to suggest severe acute changes. 3. No abnormal activity is noted in the sacrum. The other activity described in the knees and feet is most consistent with degenerative or post traumatic changes.
[2018-03-09 22:39] VITALS: BP 120/72
[2018-03-10 07:00] VITALS: BP 122/53
--- NOTE | 2018-03-10 08:04 | PN- Housestaff ---
Subjective Follow-up For: suspected osteomyelitis Complaints: C/O PIAN IN THE BACK Subjective: SEEN AND EXAMIEND PATIENT TODAY. remain afebrile, white coutn stable, images of bone scan reviewed with Dr berry, not a medical doctor nuclear medicine, will further review images with a nuclear medicine specilasit Review of Systems Constitutional: Reports: see HPI. Objective Last 24 Hrs of Vital Signs/I&O Vital Signs Date Time Temp Pulse Resp B/P B/P Pulse O2 O2 Flow FiO2 Mean Ox Delivery Rate 03/10 0700 99.4 98 20 122/53 93 Room Air 03/09 2239 99.5 106 18 120/72 94 Room Air 03/09 2155 120/72 03/09 2154 120/72 03/09 1419 98.5 100 18 118/76 97 Room Air 03/09 1351 90 128/64 03/09 1350 90 128/62 03/09 1143 94 124/60 03/09 1143 94 124/60 03/09 0943 98.6 99 20 124/60 95 Room Air Intake & Output 03/10 1600 03/10 0800 03/10 0000 Intake Total 480 480 Output Total 1200 Balance 480 -720 Intake, Oral 480 480 Output, Urine 1200 Physical Exam General Appearance: Oriented X3, Cooperative Cardiovascular: Normal S1, Normal S2, No Murmurs Lungs: Clear to Auscultation, Normal Air Movement Abdomen: Normal Bowel Sounds, Soft, No Tenderness Current Medications: Current Medications Sig/Cynthia Start time Last Medication Dose Route Stop Time Status Admin Acetaminophen 650 MG Q8P PRN 03/09 1030 AC 03/10 PO 0228 Ascorbic Acid 500 MG BID 03/09 1022 AC 03/09 PO 2154 Atorvastatin Calcium 40 MG 1700 03/09 1700 AC 03/09 PO 1700 Docusate Sodium 100 MG DAILY 03/09 1004 AC 03/09 PO 1143 Duloxetine HCl 60 MG DAILY 03/09 1016 AC 03/09 PO 1143 Enoxaparin Sodium 40 MG DAILY 03/09 0951 AC 03/09 SC 1141 Fluticasone 2 SPRAY DAILY 03/09 1004 AC 03/09 Propionate ABY 1143 Furosemide 20 MG DAILY 03/09 1016 AC 03/09 PO 1143 Gabapentin 300 MG Q6 03/09 1200 AC 03/10 PO 0554 Hydralazine HCl 25 MG TID 03/09 1015 AC 03/09 PO 2155 Ibuprofen 800 MG .STK-MED ONE 03/09 2336 DC PO 03/09 2337 Ibuprofen 800 MG Q6P PRN 03/09 1015 AC 03/09 PO 2337 Insulin Aspart 4 UNITS ONCE ONE 03/09 1815 DC 03/09 SC 03/09 1816 1842 Insulin Aspart 0 TIDAC 03/09 1200 AC 03/09 SC 1700 Insulin Detemir 60 UNITS BID 03/09 1004 AC 03/09 SC 2155 Isosorbide Dinitrate 20 MG TID 03/09 1400 AC 03/09 PO 2154 Losartan Potassium 50 MG DAILY 03/10 0900 AC PO Magnesium Oxide 400 MG BID 03/09 1020 AC 03/09 PO 2154 Metoprolol Succinate 100 MG DAILY 03/09 1003 AC 03/09 PO 1143 Multivitamins 1 TAB DAILY 03/10 0900 AC Therapeutic PO Omeprazole 40 MG DAILY AC 03/10 0700 AC 03/10 PO 0554 Oxycodone HCl 10 MG Q6P PRN 03/09 0700 AC 03/10 PO 0408 Polyethylene Glycol 17 GM DAILY NEEDED PRN 03/09 1030 AC PO Senna/Docusate Sodium 1 TAB BID PRN 03/09 1030 AC PO Sodium Chloride 1,000 ML ONCE ONE 03/09 1130 DC 03/09 IV 03/09 1329 1145 Spironolactone 25 MG DAILY 03/09 1016 AC 03/09 PO 1143 Zolpidem Tartrate 10 MG QPM PRN 03/09 1015 AC PO Last 24 Hrs of Lab/Fadi Results Last 24 Hrs of Labs/Mics: Laboratory Tests 03/10/18 0718: Sodium Pending, Potassium Pending, Chloride Pending, Carbon Dioxide Pending, Anion Gap Pending, BUN Pending, Creatinine Pending, BUN/Creatinine Ratio Pending , Alkaline Phosphatase Pending, CBC w Diff Pending, WBC Pending, RBC Pending, Hgb Pending, Hct Pending, MCV Pending, MCH Pending, MCHC Pending, RDW Pending, Plt Count Pending, MPV Pending 03/09/18 1159: Lactic Acid 0.9 Lines/Diet/Fluids Restraints: none Assessment/Plan Assessment: Mr. Lu is a 47 year old man, [facility] resident, recently d/c from the hospital 2 days ago for treatment of suspected sepsis of urologic origin, presents with complaints of feeling ill, and a temperature of 103.8 meaured at his [facility]. He was given fluids and acetominophen, and his Tmax in the hospital thusfar is 100.4. Labs revealed WBC 11.9 (12.4 on discharge) with left shift, H/H 8.6/25.7 , Platelets 570, ESR 130 (was 119 on 02/24/2018). UA did reveal pyuria, with WBC 1-3 (less than previous) with nitrite/LE negative (previously positive). CXR personally reviewed did not reveal acute changes with persistent LLL haziness. Problem List/Assessment and Plan Suspected Sepsis with question bony source * The patient has completed a course of ABx for suspected sepsis or urologic origin, and another source should be suspected. He has a hx of multiple ulcers, and currently has a healing coccygeal ulcer. * Based on the patients fever and HR on admission (not now at the time of the evaluation), the patient meets SIRS criteria, with a suspected bony source. Other possible source in light of the elevated alk phos, would be GB, althought there are no other hepatobiliary derangements at the moment. * Although the wound does not clinically appear worse (based on previous EMR reports), The bone scan did show following : " There is increased activity noted on all phases in the right acetabulum and right proximal femur, consistent with osteomyelitis. Photopenia between the acetabulum and femur is consistent with fluid previously demonstrated in the right hip joint." * I personally reviewed images with Dr Berry, however Dr berry is nto a medical doctor nuclear medicine, therefore would need to review it with nuclear medicien specialist. * Meanwhile we will ct him off antibiotics, as currently he doesnt have nay signs of infection. * will ct to follow off AX * ID consult appreciated. * Additionally, given his elevated alk phos, we will consider evaluation for GB pathology with US of the RUQ. Hyponatremia * ?secondary to diuretic use. * Pt was hyponatremic upon discharge. * Will follow serum osm, urine osm wont be of much use on diuretics DM * Continue his home meds as dictated in the discharge CMR 2 days ago, but we will hold his PO anti-hyperglycemics. * Ct FS monitoring * Ct SS HFpEF * Continue his cardioprotective meds as ordered, with note of decreased lasix dose to 20mg daily. * Of note, the patient may benefit from an ARNI (Entresto), however this can be discussed in the outpt setting. Chonic medical problems * Continue all other home meds as ordered. FULL CODE CC2 diet lovenox for dvt ppx pain path as ordered Problem List: 1. Ulcer, pressure 2. Hyperglycemia due to type 1 diabetes mellitus 3. Osteomyelitis Pain Ratin Pain Location: acetabualr area Pain Goal: Remain pain free Pain Plan: current plan Tomorrow's Labs & Rationales: cbc, bep
[2018-03-10 08:18] LABS: ABSOLUTE BASOPHIL COUNT 0 /CUMM (0.0-0.2); ABSOLUTE EOSINOPHIL COUNT 0 /CUMM (0.0-0.7); ABSOLUTE GRANULOCYTE CT 7.4 /CUMM (1.4-6.5); ABSOLUTE LYMPH COUNT 1.6 /CUMM (1.2-3.4); ABSOLUTE MONOCYTE COUNT 0.9 /CUMM (0.10-0.60); BASOPHIL % 0.2 % (0.0-2.0); EOSINOPHIL % 0.5 % (0-5); GRANULOCYTE % 74.3 % (42.2-75.2); HEMATOCRIT 26.9 % (42-52); MEAN CORPUSCULAR HGB 28.1 PG (27.0-31.0); MEAN CORPUSCULAR VOLUME 85.2 FL (80.0-94.0); MEAN PLATELET VOLUME 7.6 FL (7.4-10.4); PLATELET COUNT 642 /CUMM (130-400); RBC DISTRIBUTION WIDTH 15.9 % (11.5-14.5); RED BLOOD CELL CT 3.16 /CUMM (4.70-6.10)
--- NOTE | 2018-03-10 10:32 | PN- Att Addend ---
Attending Addendum Attending Brief Note Patient looking better and brighter Max 99 5 no new changes on physical would have the wound Center evaluate the affected area and get recommendations and see if we need any tissue diagnosis after that we can start disposition plans to have the patient return to the senior care. Intake & Output 03/10 1600 03/10 0400 03/09 1600 03/09 0400 03/08 1600 03/08 0400 Intake Total 703 240 2331 480 Output Total 1200 1800 Balance 480 -720 680 480 Intake, IV 2000 Intake, Oral 480 480 480 480 Output, Urine 1200 1800 Patient 213 lb Weight Current Medications Sig/Cynthia Start time Last Medication Dose Route Stop Time Status Admin Acetaminophen 650 MG .STK-MED ONE 03/10 0227 DC PO 03/10 0228 Acetaminophen 650 MG Q8P PRN 03/09 1030 AC 03/10 PO 0228 Ascorbic Acid 500 MG BID 03/09 1022 AC 03/10 PO 0946 Atorvastatin Calcium 40 MG 1700 03/09 1700 AC 03/09 PO 1700 Docusate Sodium 100 MG DAILY 03/09 1004 AC 03/10 PO 0945 Duloxetine HCl 60 MG DAILY 03/09 1016 AC 03/10 PO 0946 Enoxaparin Sodium 40 MG DAILY 03/09 0951 AC 03/10 SC 0939 Fluticasone 2 SPRAY DAILY 03/09 1004 AC 03/09 Propionate ABY 1143 Furosemide 20 MG DAILY 03/09 1016 AC 03/10 PO 0946 Gabapentin 300 MG Q6 03/09 1200 AC 03/10 PO 0554 Hydralazine HCl 25 MG TID 03/09 1015 AC 03/10 PO 0944 Ibuprofen 800 MG .STK-MED ONE 03/09 2336 DC PO 03/09 2337 Ibuprofen 800 MG Q6P PRN 03/09 1015 AC 03/09 PO 2337 Insulin Aspart 4 UNITS ONCE ONE 03/09 1815 DC 03/09 SC 03/09 1816 1842 Insulin Aspart 0 TIDAC 03/09 1200 AC 03/10 SC 0937 Insulin Detemir 60 UNITS BID 03/09 1004 AC 03/10 SC 0937 Isosorbide Dinitrate 20 MG TID 03/09 1400 AC 03/10 PO 0947 Losartan Potassium 50 MG DAILY 03/10 0900 AC 03/10 PO 0946 Magnesium Oxide 400 MG BID 03/09 1020 AC 03/10 PO 0946 Metoprolol Succinate 100 MG DAILY 03/09 1003 AC 03/10 PO 0946 Multivitamins 1 TAB DAILY 03/10 0900 AC 03/10 Therapeutic PO 1005 Omeprazole 40 MG DAILY AC 03/10 0700 AC 03/10 PO 0554 Oxycodone HCl 10 MG Q6P PRN 03/09 0700 AC 03/10 PO 1005 Polyethylene Glycol 17 GM DAILY NEEDED PRN 03/09 1030 AC PO Senna/Docusate Sodium 1 TAB BID PRN 03/09 1030 AC PO Sodium Chloride 1,000 ML ONCE ONE 03/09 1130 DC 03/09 IV 03/09 1329 1145 Spironolactone 25 MG DAILY 03/09 1016 AC 03/10 PO 0940 Zolpidem Tartrate 10 MG QPM PRN 03/09 1015 AC PO Laboratory Tests 03/10/18 0718: Anion Gap 9, Estimated GFR > 60, BUN/Creatinine Ratio 24.3, Alkaline Phosphatase 146 H, CBC w Diff NO MAN DIFF REQ, RBC 3.16 L, MCV 85.2, MCH 28.1, MCHC 33.0, RDW 15.9 H, MPV 7.6, Gran % 74.3, Lymphocytes % 15.9 L, Monocytes % 9.1, Eosinophils % 0.5, Basophils % 0.2, Absolute Granulocytes 7.4 H, Absolute Lymphocytes 1.6, Absolute Monocytes 0.9 H, Absolute Eosinophils 0, Absolute Basophils 0 03/09/18 1159: Lactic Acid 0.9 03/09/18 0653: ESR Westergren Cancelled 03/09/18 0604: Lactic Acid Cancelled 03/09/18 0520: Anion Gap 8, Estimated GFR > 60, BUN/Creatinine Ratio 31.7 H, Glucose 378 H, Serum Osmolality 288, Lactic Acid 0.9, Calcium 9.0, Total Bilirubin 0.5, Direct Bilirubin 0.4, AST 34, ALT 41, Alkaline Phosphatase 155 H, Troponin I < 0.01, Rax-C-Rfepkmqcsoh Pept 165 H, Total Protein 7.1, Albumin 2.5 L, Amylase 39, Lipase 278, CBC w Diff MAN DIFF ORDERED, RBC 3.03 L, MCV 84.8, MCH 28.2, MCHC 33.3, RDW 16.4 H, MPV 7.6, Gran % 83.2 H, Lymphocytes % 9.1 L, Monocytes % 7.1, Eosinophils % 0.1, Basophils % 0.5, Absolute Granulocytes 9.9 H, Segmented Neutrophils 89 H, Absolute Lymphocytes 1.1 L, Lymphocytes 6 L, Monocytes 4, Absolute Monocytes 0.8 H, Absolute Eosinophils 0, Basophils 1, Absolute Basophils 0.1, Platelet Estimate INCREASED, Polychromasia 1+, Poikilocytosis 2+, Ovalocytes 1+, Stomatocytes 1+, ESR Westergren > 130 H, Fld Total RBCs Counted 100 03/09/18 034: Urine Osmolality 419 03/09/18345: Urinalysis LIGHT H, Urine Color YEL, Urine Clarity TURBD H, Urine pH 6.0, Ur Specific [place] 1.025, Urine Protein 100 H, Urine Ketones NEG, Urine Nitrite NEG, Urine Bilirubin NEG, Urine Urobilinogen 1.0, Ur Leukocyte Esterase NEG, Ur Microscopic SEDIMENT EXAMINED, Urine WBC 1-3 H, Urine Bacteria , Urine Hemoglobin TRACE-INTACT H, Urine Glucose 100 H 03/09/18 0305: Svk-O-Qqfskndjebi Pept Cancelled Microbiology 03/09 528 BLOOD: Blood Culture - WKST 03/09 520 BLOOD: Blood Culture - RECD 03/09 346 URINE ROUT: Urine Culture - RES YEAST Microbiology 03/09 528 BLOOD: Blood Culture - 03/09 BLOOD: Blood Culture - RECD 03/09 346 URINE ROUT: Urine Culture - RES YEAST Vital Signs Date Time Temp Pulse Resp B/P B/P Pulse O2 O2 Flow FiO2 Mean Ox Delivery Rate 03/10 0947 86 12003/10 0946 86 12003/10 0946 86 12003/10 0944 86 12003/10 0700 99.4 98 20 122/53 93 Room Air 03/09 2239 99.5 106 18 120/72 94 Room Air 03/09 2155 12003/09 2154 12003/09 1419 98.5 100 18 118/76 97 Room Air 03/09 1351 90 128/64 03/09 1350 90 128/62 03/09 1143 94 124/60 03/09 1143 94 124/60
[2018-03-10 14:01] VITALS: BP 108/62
--- NOTE | 2018-03-10 14:08 | PN- Infect Dx ---
Subjective Subjective: Afebrile without complaints. He does report sweats overnight but no fever was documented. Objective Last 24 Hrs of Vital Signs/I&O Vital Signs Date Time Temp Pulse Resp B/P B/P Pulse O2 O2 Flow FiO2 Mean Ox Delivery Rate 03/10 0947 86 120/72 03/10 0946 86 120/72 03/10 0946 86 120/72 03/10 0944 86 120/72 03/10 0700 99.4 98 20 122/53 93 Room Air 03/09 2239 99.5 106 18 120/72 94 Room Air 03/09 2155 120/72 03/09 2154 120/72 03/09 1419 98.5 100 18 118/76 97 Room Air Intake & Output 03/10 1600 03/10 0800 03/10 0000 Intake Total 480 480 Output Total 1200 Balance 480 -720 Intake, Oral 480 480 Output, Urine 1200 Physical Exam Other Physical Findings: He appears comfortable in no acute distress Lungs are clear Heart regular rhythm with no murmur Abdomen suprapubic tube in place with no inflammation at the site Extremities right hip with no open wounds Results Last 24 Hours of Lab Results: Laboratory Tests 03/10 0718 Chemistry Sodium (137 - 145 mmol/L) 131 L Potassium (3.5 - 5.1 mmol/L) 4.4 Chloride (98 - 107 mmol/L) 96 L Carbon Dioxide (22 - 30 mmol/L) 26 Anion Gap (5 - 16) 9 BUN (9 - 20 mg/dL) 17 Creatinine (0.7 - 1.2 mg/dL) 0.7 Estimated GFR (>60 ml/min) > 60 BUN/Creatinine Ratio (7 - 25 %) 24.3 Alkaline Phosphatase (< 127 U/L) 146 H Hematology CBC w Diff NO MAN DIFF REQ WBC (4.8 - 10.8 /CUMM) 10.0 RBC (4.70 - 6.10 /CUMM) 3.16 L Hgb (14.0 - 18.0 G/DL) 8.9 L Hct (42 - 52 %) 26.9 L MCV (80.0 - 94.0 FL) 85.2 MCH (27.0 - 31.0 PG) 28.1 MCHC (33.0 - 37.0 G/DL) 33.0 RDW (11.5 - 14.5 %) 15.9 H Plt Count (130 - 400 /CUMM) 642 H MPV (7.4 - 10.4 FL) 7.6 Gran % (42.2 - 75.2 %) 74.3 Lymphocytes % (20.5 - 51.1 %) 15.9 L Monocytes % (1.7 - 9.3 %) 9.1 Eosinophils % (0 - 5 %) 0.5 Basophils % (0.0 - 2.0 %) 0.2 Absolute Granulocytes (1.4 - 6.5 /CUMM) 7.4 H Absolute Lymphocytes (1.2 - 3.4 /CUMM) 1.6 Absolute Monocytes (0.10 - 0.60 /CUMM) 0.9 H Absolute Eosinophils (0.0 - 0.7 /CUMM) 0 Absolute Basophils (0.0 - 0.2 /CUMM) 0 Last 24 Hours of Fadi Results: Blood cultures March 09 negative Urine culture March 09 greater than 100,000 colonies of yeast Recent Imaging Studies: Bone scan March 09 reveals increased activity in the right acetabulum and right proximal femur, consistent with osteomyelitis; no abnormal activity in the sacrum Assessment/Plan ID Impression: Stable, with no further fevers recorded, though he reports sweats overnight, with his white blood cell count now normal off antibiotics, with his blood cultures remaining negative. The positive urine culture for yeast likely represents colonization and should not require treatment. The significance of the bone scan findings is unclear, with osteomyelitis of the right hip and proximal femur suggested, though he has no overlying open wounds, and with no evidence of osteomyelitis of the sacrum, where he does have an open wound. A bone biopsy of the right hip/proximal femur could be pursued, and this was discussed with IR, though, with no overlying inflammation, could also defer and follow-up as an outpatient. Suggestion: 1. Consider CT-guided biopsy of the right proximal femur/hip by IR (but could pursue this as an outpatient) 2. Continue to monitor his temperatures off antibiotics
[2018-03-10 22:07] VITALS: BP 110/62
--- NOTE | 2018-03-11 07:05 | PN- Housestaff ---
Subjective Follow-up For: -suspected OM Review of Systems Constitutional: Reports: see HPI. Objective Last 24 Hrs of Vital Signs/I&O Vital Signs Date Time Temp Pulse Resp B/P B/P Pulse O2 O2 Flow FiO2 Mean Ox Delivery Rate 03/10 2207 98.4 94 20 110/62 92 Room Air 03/10 2132 94 110/62 03/10 2131 94 110/62 03/10 1551 89 108/62 03/10 1551 89 108/62 03/10 1401 98.1 89 20 108/62 96 03/10 0947 86 120/72 03/10 0946 86 120/72 03/10 0946 86 120/72 03/10 0944 86 120/72 Intake & Output 03/11 0800 03/11 0000 03/10 1600 Intake Total 700 Output Total 1700 Balance -1700 700 Intake, Oral 700 Output, Urine 1700 Physical Exam General Appearance: Alert, Oriented X3 Cardiovascular: Regular Rate, Normal S1, Normal S2 Lungs: Clear to Auscultation, Normal Air Movement Abdomen: Normal Bowel Sounds, Soft, No Tenderness Neurological: Strength at 5/5 X4 Ext, Normal Tone, Sensation Intact, Cranial Nerves 3-12 NL Extremities: No Clubbing, No Cyanosis, No Edema, Normal Pulses Vascular: Normal Pulses Current Medications: Current Medications Sig/Cynthia Start time Last Medication Dose Route Stop Time Status Admin Acetaminophen 650 MG Q8P PRN 03/09 1030 AC 03/11 PO 0136 Ascorbic Acid 500 MG BID 03/09 1022 AC 03/10 PO 2131 Atorvastatin Calcium 40 MG 1700 03/09 1700 AC 03/10 PO 1700 Docusate Sodium 100 MG DAILY 03/09 1004 AC 03/10 PO 0945 Duloxetine HCl 60 MG DAILY 03/09 1016 DC 03/10 PO 0946 Enoxaparin Sodium 40 MG DAILY 03/09 0951 AC 03/10 SC 0939 Fluticasone 2 SPRAY DAILY 03/09 1004 AC 03/09 Propionate ABY 1143 Furosemide 20 MG DAILY 03/09 1016 AC 03/10 PO 0946 Gabapentin 300 MG Q6 03/09 1200 AC 03/11 PO 0609 Hydralazine HCl 25 MG TID 03/09 1015 AC 03/10 PO 2132 Ibuprofen 800 MG Q6P PRN 03/09 1015 AC 03/09 PO 2337 Insulin Aspart 0 TIDAC 03/09 1200 AC 03/10 SC 1834 Insulin Detemir 60 UNITS BID 03/09 1004 AC 03/10 SC 2131 Isosorbide Dinitrate 20 MG TID 03/09 1400 AC 03/10 PO 2131 Losartan Potassium 50 MG DAILY 03/10 0900 AC 03/10 PO 0946 Magnesium Oxide 400 MG BID 03/09 1020 AC 03/10 PO 2131 Metoprolol Succinate 100 MG DAILY 03/09 1003 AC 03/10 PO 0946 Multivitamins 1 TAB DAILY 03/10 0900 AC 03/10 Therapeutic PO 1005 Omeprazole 40 MG DAILY AC 03/10 0700 AC 03/11 PO 0609 Oxycodone HCl 10 MG Q6P PRN 03/09 0700 AC 03/11 PO 0613 Polyethylene Glycol 17 GM DAILY NEEDED PRN 03/09 1030 AC PO Senna/Docusate Sodium 1 TAB BID PRN 03/09 1030 AC PO Spironolactone 25 MG DAILY 03/09 1016 AC 03/10 PO 0940 Zolpidem Tartrate 10 MG QPM PRN 03/09 1015 AC 03/11 PO 0136 Last 24 Hrs of Lab/Fadi Results Last 24 Hrs of Labs/Mics: Laboratory Tests 03/10/18 0718: Anion Gap 9, Estimated GFR > 60, BUN/Creatinine Ratio 24.3, Alkaline Phosphatase 146 H, CBC w Diff NO MAN DIFF REQ, RBC 3.16 L, MCV 85.2, MCH 28.1, MCHC 33.0, RDW 15.9 H, MPV 7.6, Gran % 74.3, Lymphocytes % 15.9 L, Monocytes % 9.1, Eosinophils % 0.5, Basophils % 0.2, Absolute Granulocytes 7.4 H, Absolute Lymphocytes 1.6, Absolute Monocytes 0.9 H, Absolute Eosinophils 0, Absolute Basophils 0 Lines/Diet/Fluids Restraints: none Assessment/Plan Assessment: Mr. Lu is a 47 year old man, senior care resident, recently d/c from the hospital 2 days ago for treatment of suspected sepsis of urologic origin, presents with complaints of feeling ill, and a temperature of 103.8 meaured at his [facility]. He was given fluids and acetominophen, and his Tmax in the hospital thusfar is 100.4. Labs revealed WBC 11.9 (12.4 on discharge) with left shift, H/H 8.6/25.7 , Platelets 570, ESR 130 (was 119 on 02/24/2018). UA did reveal pyuria, with WBC 1-3 (less than previous) with nitrite/LE negative (previously positive). CXR personally reviewed did not reveal acute changes with persistent LLL haziness. Problem List/Assessment and Plan Suspected Sepsis with question bony source * The patient has completed a course of ABx for suspected sepsis or urologic origin, and another source should be suspected. He has a hx of multiple ulcers, and currently has a healing coccygeal ulcer. * Based on the patients fever and HR on admission (not now at the time of the evaluation), the patient meets SIRS criteria, with a suspected bony source. Other possible source in light of the elevated alk phos, would be GB, althought there are no other hepatobiliary derangements at the moment. * Although the wound does not clinically appear worse (based on previous EMR reports), The bone scan did show following : " There is increased activity noted on all phases in the right acetabulum and right proximal femur, consistent with osteomyelitis. Photopenia between the acetabulum and femur is consistent with fluid previously demonstrated in the right hip joint." * In setting of no fever, no white count - will ct to follow off AX * ID consult appreciated. * Will d/c today Hyponatremia * ?secondary to diuretic use. * Pt was hyponatremic upon discharge. * Will follow serum osm, urine osm wont be of much use on diuretics DM * Continue his home meds as dictated in the discharge CMR 2 days ago, but we will hold his PO anti-hyperglycemics. * Ct FS monitoring * Ct SS HFpEF * Continue his cardioprotective meds as ordered, with note of decreased lasix dose to 20mg daily. * Of note, the patient may benefit from an ARNI (Entresto), however this can be discussed in the outpt setting. Chonic medical problems * Continue all other home meds as ordered. FULL CODE CC2 diet lovenox for dvt ppx pain path as ordered Problem List: 1. Paraplegia Pain Ratin Pain Location: .. Pain Goal: Remain pain free Pain Plan: current plan Tomorrow's Labs & Rationales: cbc, bep Discharge Plan Stable for Discharge? No
[2018-03-11 07:37] VITALS: BP 117/63
[2018-03-11 08:25] LABS: ABSOLUTE BASOPHIL COUNT 0 /CUMM (0.0-0.2); ABSOLUTE EOSINOPHIL COUNT 0.1 /CUMM (0.0-0.7); ABSOLUTE GRANULOCYTE CT 7.9 /CUMM (1.4-6.5); ABSOLUTE MONOCYTE COUNT 0.6 /CUMM (0.10-0.60); BASOPHIL % 0.2 % (0.0-2.0); GRANULOCYTE % 81.7 % (42.2-75.2); HEMATOCRIT 26.1 % (42-52); MEAN CORPUSCULAR HGB 27.7 PG (27.0-31.0); MEAN CORPUSCULAR HGB CONC 32.9 G/DL (33.0-37.0); MEAN CORPUSCULAR VOLUME 84.3 FL (80.0-94.0); MEAN PLATELET VOLUME 7.4 FL (7.4-10.4); PLATELET COUNT 624 /CUMM (130-400); RBC DISTRIBUTION WIDTH 16.3 % (11.5-14.5); WHITE BLOOD CELL COUNT 9.6 /CUMM (4.8-10.8)
--- NOTE | 2018-03-11 11:01 | Patient Discharge Instructions ---
Discharge Instructions General Discharge Information You were seen/treated for: actue osteomyelitis Diet Continue normal diet: Yes Acute Coronary Syndrome Inclusion Criteria At DC or during hospital stay patient has or had the following: ACS DIAGNOSIS No Discharge Core Measures Meds if any: Prescribed or Continued at Discharge Meds if any: NOT Prescribed or Continued at Discharge Congestive Heart Failure Inclusion Criteria At DC or during hospital stay patient has or had the following: CHF DIAGNOSIS No Discharge Core Measures Meds if any: Prescribed or Continued at Discharge Meds if any: NOT Prescribed or Continued at Discharge Cerebrovascular accident Inclusion Criteria At DC or during hospital stay patient has or had the following: CVA/TIA Diagnosis No Discharge Core Measures Meds if any: Prescribed or Continued at Discharge Meds if any: NOT Prescribed or Continued at Discharge Venous thromboembolism Inclusion Criteria VTE Diagnosis No VTE Type NONE VTE Confirmed by (Test) NONE Discharge Core Measures - Per Current guidelines, there needs to be overlap - treatment for the first 5 days of Warfarin therapy. - If discharged on Warfarin prior to 5 days of - overlap therapy, the patient will need to be - assessed for post discharge needs including - *Post discharge parental anticoagulation - *Warfarin and/or parental anticoagulation education - *Follow up date to check INR post discharge At least 5 days overlap therapy as Inpatient No Meds if any: Prescribed or Continued at Discharge Note: Overlap Therapy is Warfarin and Anticoagulant Meds if any: NOT Prescribed or Continued at Discharge
--- NOTE | 2018-03-11 11:04 | PN- Att Addend ---
Attending Addendum Attending Brief Note No new issues. Patient's vital signs are stable no fever no new changes on physical. Findings of the bone scan were noted discussed it with Dr. Stover, will let the patient returned to the long-term and if necessary arrange for outpatient further workup if needed Intake & Output 03/11 1600 03/11 0400 03/10 1600 03/10 0400 03/09 1600 03/09 0400 Intake Total 3642 093 0500 480 Output Total 950 1700 1200 1800 Balance -950 -1700 1180 -720 680 480 Intake, IV 2000 Intake, Oral 1180 480 480 480 Output, Urine 950 1700 1200 1800 Patient 213 lb Weight Current Medications Sig/Cynthia Start time Last Medication Dose Route Stop Time Status Admin Acetaminophen 650 MG .STK-MED ONE 03/11 0135 DC PO 03/11 0136 Acetaminophen 650 MG Q8P PRN 03/09 1030 AC 03/11 PO 0136 Ascorbic Acid 500 MG BID 03/09 1022 AC 03/11 PO 0912 Atorvastatin Calcium 40 MG 1700 03/09 1700 AC 03/10 PO 1700 Docusate Sodium 100 MG DAILY 03/09 1004 AC 03/11 PO 0912 Duloxetine HCl 60 MG DAILY 03/09 1016 DC 03/10 PO 0946 Enoxaparin Sodium 40 MG DAILY 03/09 0951 AC 03/11 SC 0913 Fluticasone 2 SPRAY DAILY 03/09 1004 AC 03/09 Propionate ABY 1143 Furosemide 20 MG DAILY 03/09 1016 AC 03/11 PO 0912 Gabapentin 300 MG Q6 03/09 1200 AC 03/11 PO 0609 Hydralazine HCl 25 MG TID 03/09 1015 AC 03/11 PO 0912 Ibuprofen 800 MG Q6P PRN 03/09 1015 AC 03/11 PO 0928 Insulin Aspart 0 TIDAC 03/09 1200 AC 03/11 SC 0913 Insulin Detemir 60 UNITS BID 03/09 1004 AC 03/11 SC 0913 Isosorbide Dinitrate 20 MG TID 03/09 1400 AC 03/11 PO 0913 Losartan Potassium 50 MG DAILY 03/10 0900 AC 03/11 PO 0912 Magnesium Oxide 400 MG BID 03/09 1020 AC 03/11 PO 0912 Metoprolol Succinate 100 MG DAILY 03/09 1003 AC 03/11 PO 0927 Multivitamins 1 TAB DAILY 03/10 0900 AC 03/11 Therapeutic PO 0912 Omeprazole 40 MG DAILY AC 03/10 0700 AC 03/11 PO 0609 Oxycodone HCl 10 MG Q6P PRN 03/09 0700 AC 03/11 PO 0613 Polyethylene Glycol 17 GM DAILY NEEDED PRN 03/09 1030 AC PO Senna/Docusate Sodium 1 TAB BID PRN 03/09 1030 AC PO Spironolactone 25 MG DAILY 03/09 1016 AC 03/11 PO 0912 Zolpidem Tartrate 10 MG QPM PRN 03/09 1015 AC 03/11 PO 0136 Laboratory Tests 03/11/18 0720: Anion Gap 8, Estimated GFR > 60, BUN/Creatinine Ratio 18.8, CBC w Diff NO MAN DIFF REQ, RBC 3.10 L, MCV 84.3, MCH 27.7, MCHC 32.9 L, RDW 16.3 H, MPV 7.4, Gran % 81.7 H, Lymphocytes % 10.5 L, Monocytes % 6.6, Eosinophils % 1.0, Basophils % 0.2, Absolute Granulocytes 7.9 H, Absolute Lymphocytes 1.0 L, Absolute Monocytes 0.6, Absolute Eosinophils 0.1, Absolute Basophils 0 03/10/18 0718: Anion Gap 9, Estimated GFR > 60, BUN/Creatinine Ratio 24.3, Alkaline Phosphatase 146 H, CBC w Diff NO MAN DIFF REQ, RBC 3.16 L, MCV 85.2, MCH 28.1, MCHC 33.0, RDW 15.9 H, MPV 7.6, Gran % 74.3, Lymphocytes % 15.9 L, Monocytes % 9.1, Eosinophils % 0.5, Basophils % 0.2, Absolute Granulocytes 7.4 H, Absolute Lymphocytes 1.6, Absolute Monocytes 0.9 H, Absolute Eosinophils 0, Absolute Basophils 0 03/09/18 1159: Lactic Acid 0.9 03/09/18 0653: ESR Westergren Cancelled 03/09/18 0604: Lactic Acid Cancelled 03/09/18 0520: Anion Gap 8, Estimated GFR > 60, BUN/Creatinine Ratio 31.7 H, Glucose 378 H, Serum Osmolality 288, Lactic Acid 0.9, Calcium 9.0, Total Bilirubin 0.5, Direct Bilirubin 0.4, AST 34, ALT 41, Alkaline Phosphatase 155 H, Troponin I < 0.01, Yva-D-Gauzzcxkkrn Pept 165 H, Total Protein 7.1, Albumin 2.5 L, Amylase 39, Lipase 278, CBC w Diff MAN DIFF ORDERED, RBC 3.03 L, MCV 84.8, MCH 28.2, MCHC 33.3, RDW 16.4 H, MPV 7.6, Gran % 83.2 H, Lymphocytes % 9.1 L, Monocytes % 7.1, Eosinophils % 0.1, Basophils % 0.5, Absolute Granulocytes 9.9 H, Segmented Neutrophils 89 H, Absolute Lymphocytes 1.1 L, Lymphocytes 6 L, Monocytes 4, Absolute Monocytes 0.8 H, Absolute Eosinophils 0, Basophils 1, Absolute Basophils 0.1, Platelet Estimate INCREASED, Polychromasia 1+, Poikilocytosis 2+, Ovalocytes 1+, Stomatocytes 1+, ESR Westergren > 130 H, Fld Total RBCs Counted 100 03/09/18 034: Urine Osmolality 419 03/09/18 034: Urinalysis LIGHT H, Urine Color YEL, Urine Clarity TURBD H, Urine pH 6.0, Ur Specific [place] 1.025, Urine Protein 100 H, Urine Ketones NEG, Urine Nitrite NEG, Urine Bilirubin NEG, Urine Urobilinogen 1.0, Ur Leukocyte Esterase NEG, Ur Microscopic SEDIMENT EXAMINED, Urine WBC 1-3 H, Urine Bacteria , Urine Hemoglobin TRACE-INTACT H, Urine Glucose 100 H 03/09/18 0305: Lvv-Z-Tpdqaqojxxk Pept Cancelled Microbiology 03/09 528 BLOOD: Blood Culture - RES 03/09 520 BLOOD: Blood Culture - RES 03/09 346 URINE ROUT: Urine Culture - COMP YEAST Microbiology 03/09 528 BLOOD: Blood Culture - RES 03/09 520 BLOOD: Blood Culture - RES 03/09 346 URINE ROUT: Urine Culture - COMP YEAST Vital Signs Date Time Temp Pulse Resp B/P B/P Pulse O2 O2 Flow FiO2 Mean Ox Delivery Rate 03/11 927 100 117/68 03/11 0913 100 117/03/11 0912 100 11703/11 0912 100 03/11 0737 97.9 100 20 117/63 93 Room Air 03/10 2207 98.4 94 20 110/62 92 Room Air 03/10 2132 94 11003/10 2131 94 110/62 03/10 1551 89 108/62 03/10 1551 89 108/62 03/10 1401 98.1 89 20 108/62 96
--- NOTE | 2018-03-11 11:49 | PN- Infect Dx ---
Subjective Subjective: Afebrile without complaints Objective Last 24 Hrs of Vital Signs/I&O Vital Signs Date Time Temp Pulse Resp B/P B/P Pulse O2 O2 Flow FiO2 Mean Ox Delivery Rate 03/11 927 100 117/68 03/11 0913 100 117/63 03/11 0912 100 117/63 03/11 0912 100 117/63 03/11 0737 97.9 100 20 117/63 93 Room Air 03/10 2207 98.4 94 20 110/62 92 Room Air 03/10 2132 94 110/62 03/10 2131 94 110/62 03/10 1551 89 108/62 03/10 1551 89 108/62 03/10 1401 98.1 89 20 10862 96 Intake & Output 03/11 1600 03/11 0800 03/11 0000 Intake Total Output Total 950 1700 Balance -950 -1700 Output, Urine 950 1700 Physical Exam Other Physical Findings: He appears comfortable in no acute distress Abdomen distended, with suprapubic tube in place Back sacral decubitus unchanged Extremities right hip with no open wounds or inflammation Results Last 24 Hours of Lab Results: Laboratory Tests 03/11 720 Chemistry Sodium (137 - 145 mmol/L) 130 L Potassium (3.5 - 5.1 mmol/L) 4.6 Chloride (98 - 107 mmol/L) 97 L Carbon Dioxide (22 - 30 mmol/L) 24 Anion Gap (5 - 16) 8 BUN (9 - 20 mg/dL) 15 Creatinine (0.7 - 1.2 mg/dL) 0.8 Estimated GFR (>60 ml/min) > 60 BUN/Creatinine Ratio (7 - 25 %) 18.8 Hematology CBC w Diff NO MAN DIFF REQ WBC (4.8 - 10.8 /CUMM) 9.6 RBC (4.70 - 6.10 /CUMM) 3.10 L Hgb (14.0 - 18.0 G/DL) 8.6 L Hct (42 - 52 %) 26.1 L MCV (80.0 - 94.0 FL) 84.3 MCH (27.0 - 31.0 PG) 27.7 MCHC (33.0 - 37.0 G/DL) 32.9 L RDW (11.5 - 14.5 %) 16.3 H Plt Count (130 - 400 /CUMM) 624 H MPV (7.4 - 10.4 FL) 7.4 Gran % (42.2 - 75.2 %) 81.7 H Lymphocytes % (20.5 - 51.1 %) 10.5 L Monocytes % (1.7 - 9.3 %) 6.6 Eosinophils % (0 - 5 %) 1.0 Basophils % (0.0 - 2.0 %) 0.2 Absolute Granulocytes (1.4 - 6.5 /CUMM) 7.9 H Absolute Lymphocytes (1.2 - 3.4 /CUMM) 1.0 L Absolute Monocytes (0.10 - 0.60 /CUMM) 0.6 Absolute Eosinophils (0.0 - 0.7 /CUMM) 0.1 Absolute Basophils (0.0 - 0.2 /CUMM) 0 Last 24 Hours of Fadi Results: Blood cultures March 09 negative Assessment/Plan ID Impression: Stable, with temperatures and white blood cell count remaining normal, off antibiotics, with his blood cultures remaining negative and with no obvious focus of infection. The positive urine culture for yeast likely represents colonization and should not require treatment. The significance of the bone scan findings is unclear, with osteomyelitis of the right hip and proximal femur suggested, though he has no overlying open wounds. A bone biopsy of the right hip/proximal femur could be pursued but, in the absence of any clinical correlation, feel that this can be deferred at this point. Suggestion: 1. Would defer on bone biopsy at this point, but could consider as an outpatient if his clinical condition changes 2. Continue to follow off antibiotics
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
[2018-03-11 12:44] VITALS: BP 117/68
[2018-03-11 13:38] VITALS: BP 102/64
[2018-03-11 14:05] VITALS: BP 102/64
--- NOTE | 2018-03-11 14:27 | Discharge Summary ---
Visit Information Visit Dates Admission Date: 03/09/18 Discharge Date: 03/11/2018 Hospital Course Course Attending Physician: Juan Carlos Cox MD Primary Care Physician: Brooke MAYORGA,Juan Carlos Hospital Course: Mr. Lu is a 47 year old man, halfway resident, recently d/c from the hospital 2 days ago for treatment of suspected sepsis of urologic origin, presents with complaints of feeling ill, and a temperature of 103.8 meaured at his [facility]. He was given fluids and acetominophen, and his Tmax in the hospital was 100.4. Labs revealed WBC 11.9 (12.4 on discharge) with left shift, H/H 8.6/25.7, Platelets 570, ESR 130 (was 119 on 02/24/2018). UA did reveal pyuria, with WBC 1-3 (less than previous) with nitrite/LE negative (previously positive). CXR personally reviewed did not reveal acute changes with persistent LLL haziness. Problem List/Assessment and Plan # Suspected Osteomyelitis with no signs of infection, chronic osteomyelitis in the acetabular area * Based on patient history of fever at halfway and HR, he met intial sepsis criteria, however Cxr was negative, Ua Was negative, his bony source in the acetabualr area was suspected, therefore a bone scan was done. * The wound didnot clinically appear worse (based on previous EMR reports), The bone scan did show following : " There is increased activity noted on all phases in the right acetabulum and right proximal femur, consistent with osteomyelitis. Photopenia between the acetabulum and femur is consistent with fluid previously demonstrated in the right hip joint." * With no signs of sepsis, normal white count and no change in appearance, he was not started on antibiotics.Id was consulted.He was monitored under observation for 2 days, where in he continued to be afebrile, no white count, therefore he was discharge off antibiotics. Hyponatremia * ?secondary to diuretic use. * Pt was hyponatremic upon discharge. * Will follow serum osm, urine osm wont be of much use on diuretics DM * Continue his home meds as dictated in the discharge CMR 2 days ago, but we will hold his PO anti-hyperglycemics. * Ct FS monitoring * Ct SS HFpEF * Continue his cardioprotective meds as ordered, with note of decreased lasix dose to 20mg daily. * Of note, the patient may benefit from an ARNI (Entresto), however this can be discussed in the outpt setting. Chonic medical problems * Continue all other home meds as ordered. FULL CODE CC2 diet lovenox for dvt ppx pain path as ordered Allergies: Coded Allergies: No Known Allergies (01/31/17) Discharge Instructions Medications at Discharge Discharge Medications: Continue taking these medications: Pantoprazole Sodium (Pantoprazole Sodium) 40 MG TABLET.DR 1 Tablet ORAL DAILY Comments: Last Taken:03/11/18 Time:0600 AM PRILOSEC 40MG GIVEN Linagliptin (Tradjenta) 5 MG TABLET 1 Tablet ORAL DAILY Comments: NOT GIVEN IN HOSPITAL Metoprolol Tartrate (Metoprolol Tartrate) 100 MG TABLET 1 Tablet ORAL DAILY Comments: Last Taken:03/11/18 Time:0900 AM Losartan Potassium (Cozaar) 50 MG TABLET 1 Tablet ORAL DAILY Qty = 30 Comments: Last Taken:03/11/18 Time:0900 AM Insulin Glargine,Hum.rec.anlog (Lantus Solostar) 100 UNIT/ML (3 ML) INSULN.PEN 60 Unit Inject into fatty tissue TWICE DAILY Qty = 30 Comments: Last Taken:03/11/18 Time:0900 AM 60 UNITS LEVEMIR Fluticasone Propionate (Fluticasone Propionate) 50 MCG/ACTUATION SPRAY.SUSP 2 [place] Both sides of nose DAILY Qty = 48 Comments: Last Taken:03/09/18 Time:1145 AM Ibuprofen (Ibuprofen) 800 MG TABLET 1 Tablet ORAL EVERY 6 HOURS NEEDED as needed for pain Qty = 30 Comments: Last Taken:03/11/18 Time:0930 AM Zolpidem Tartrate (Zolpidem Tartrate) 10 MG TABLET 1 Tablet ORAL Every night as needed as needed for SLEEP Qty = 30 Comments: LAST GIVEN 03/11/18 @ 0130 AM Gabapentin (Neurontin) 300 MG CAPSULE 1 Capsule ORAL EVERY SIX HOURS Comments: Last Taken:03/11/18 Time:1200 PM Insulin Lispro (Humalog) 100 UNIT/ML VIAL 12 Units Inject into fatty tissue AT 2000 Comments: Last Taken:03/11/18 Time:12:45 PM 10 UNITS NOVOLOG GIVEN Metformin HCl (Metformin HCl) 500 MG TABLET 1 Tablet ORAL TWICE DAILY Qty = 60 Comments: NOT GIVEN IN HOSPITAL Multivitamin (Daily Multiple Vitamin) 1 EACH TABLET 1 Tablet ORAL DAILY Comments: Last Taken:03/11/18 Time:0900 AM Ascorbate Calcium (Vitamin C) 500 MG TABLET 1 Tablet ORAL TWICE DAILY Comments: Last Taken:03/11/18 Time:0900 AM Oxycodone HCl (Oxycodone HCl) 10 MG TABLET 1 Tablet ORAL EVERY 8 HOURS NEEDED as needed for PAIN Qty = 60 Comments: Last Taken:03/11/18 Time:12:20 PM Docusate Sodium (Colace) 100 MG CAPSULE 1 Capsule ORAL DAILY Comments: Last Taken: Time: 0900 AM Atorvastatin Calcium (Atorvastatin Calcium) 40 MG TABLET 1 Tablet ORAL 5 PM Qty = 30 Comments: Last Taken:03/10/18 Time:5:00 PM Hydralazine HCl (Hydralazine HCl) 25 MG TABLET 1 Tablet ORAL THREE TIMES DAILY Qty = 90 Comments: Last Taken:03/11/18 Time:2:00 PM Isosorbide Dinitrate (Isosorbide Dinitrate) 20 MG TABLET 1 Tablet ORAL THREE TIMES DAILY Qty = 90 Comments: Last Taken:03/11/18 Time:2:00 PM Spironolactone (Aldactone) 25 MG TABLET 1 Tablet ORAL DAILY Qty = 30 Comments: Last Taken:03/11/18 Time:0900 AM Duloxetine HCl (Duloxetine HCl) 60 MG CAPSULE.DR 1 Tablet ORAL DAILY Qty = 30 Comments: Last Taken:03/10/18 Time:0945 AM Furosemide (Lasix) 20 MG TABLET 1 Tablet ORAL DAILY Qty = 30 Instructions: PLEASE START ON 03/08/18 Comments: Last Taken:03/11/18 Time:0900 AM Magnesium Oxide (Magnesium Oxide) 400 MG TABLET 400 Milligram ORAL TWICE DAILY Qty = 30 Comments: Last Taken:03/11/18 Time:0900 AM Polyethylene Glycol 3350 (Miralax) 17 GRAM/DOSE POWDER 17 Gram ORAL DAILY as needed for CONSTIPATION Qty = 1 Comments: NOT GIVEN IN HOSPITAL Sennosides/Docusate Sodium (Senna-Time S Tablet) 8.6 MG-50 MG TABLET 1 Tablet ORAL TWICE DAILY as needed for constipation Qty = 30 Comments: NOT GIVEN IN HOSPITAL Acetaminophen (Acetaminophen) 500 MG TABLET 650 Milligram ORAL as needed for FEVER OR PAIN Instructions: DO NOT EXCEED 3GM/DAY Comments: Last Taken:03/11/18 Time:0130 AM 650 MG GIVEN
== END 2018-03-11 16:30 ==
LOC: ERH 02:58 → 2NB 06:28 → ERHI 06:28 → ENRESERV 06:53 → ENTRNSPT 08:44 → EDTRNSPTSTS 08:47 → EDTRNSPT 08:47 → 2NB 08:56 → CMPTRNSPT 09:13 → ENPENDDIS 03-11 12:40 → 2NB 03-11 16:30
PROVIDERS: Internal Medicine; Internal Medicine Cardiovascular Disease; Pediatrics
DX: R50.9 Fever, unspecified (principal); E87.1 Hypo-osmolality and hyponatremia; Z79.4 Long term (current) use of insulin; Z79.84 Long term (current) use of oral hypoglycemic drugs; I11.0 Hypertensive heart disease with heart failure; I50.32 Chronic diastolic (congestive) heart failure; L89.154 Pressure ulcer of sacral region, stage 4; G82.20 Paraplegia, unspecified; K21.9 Gastro-esophageal reflux disease without esophagitis; F41.9 Anxiety disorder, unspecified; Z87.891 Personal history of nicotine dependence; D72.829 Elevated white blood cell count, unspecified; N31.9 Neuromuscular dysfunction of bladder, unspecified; I42.9 Cardiomyopathy, unspecified; K64.3 Fourth degree hemorrhoids; L97.829 Non-pressure chronic ulcer of other part of left lower leg with unspecified severity; L97.819 Non-pressure chronic ulcer of other part of right lower leg with unspecified severity; E10.622 Type 1 diabetes mellitus with other skin ulcer
CPT/HCPCS: 36415; 71045; 81001; 82436; 87040; 87086; 87088; 93005; 93010; 96360; 96372; A9561; G0378; J1650; J7508